=== PATIENT | male | born 1955 | race Caucasian/White ===

== ENCOUNTER 2020-07-15 17:18 | Emergency (ER) | payer OTHER, SELFPAY ==
--- NOTE | ~2020-07-15 | US_ITS ---
EXAMINATION: US VENOUS ULTRASOUND WITH DOPPLER LOWER EXTREMITY, LEFT CLINICAL INFORMATION: Left leg edema COMPARISON: None TECHNIQUE: Ultrasound of the deep veins is performed from the hip to the calf with compression sonography and color and pulse Doppler assessment. Spectral analysis with color-flow imaging is performed. FINDINGS: Acute DVT involving the left lower extremity is present with nonvisualized peroneal veins with thrombus present in the popliteal vein extending into the femoral vein up to near the GSV - femoral vein junction. US/US venous duplex LE LT IMPRESSION: Acute DVT left lower extremity involving the popliteal vein and the end prior course of the femoral vein to just below the inflow of the great saphenous vein.
[2020-07-15 17:30] VITALS: BP 146/84; PULSE 68; RESP 18; TEMP 36.6; O2SAT 100; BMI 29.9
--- NOTE | 2020-07-15 17:38 | ED_ITS ---
HPI - Recheck/Abnormal Lab/Rx General Chief Complaint: Recheck/Abnormal Lab/Rx Stated Complaint: dvt Time Seen by Provider: 07/15/20 17:26 Source: patient Mode of arrival: ambulatory Limitations: no limitations History of Present Illness HPI narrative: 64 y/o male with history of idopathic pulmonary fibrosis with ch ronic hypoxic respiratory failure on 2L NC, hx spontaneous PTX x2 (left in September 2019 and right in Apr 2020) s/p VATS who presents from US lab with positive DVT. He reports he has had LLE swelling for the last 4 weeks. He is used to walking 5 miles per day and after his VATS in April his mobility has been decreased. He denies SOB or chest pain. His breathing has been the same since his surgery. He is up to walking 10 blocks and has no SOB. He has been compliant with his oxygen. complaint: abnormal lab Initial visit (ago): hour(s) Initial visit for: other (LE edema) Description of abnormal result: LE DVT Symptoms since prior visit: worsening swelling Associated symptoms: none Related Data Home Medications Medication Instructions Recorded Confirmed oxygen-air delivery systems #1 05/17/20 07/15/20 Previous Rx's Medication Instructions Recorded albuterol sulfate 90 mcg/actuation 2 puff INHALATION Q6H PRN #8.5 g 01/29/20 aerosol inhaler zolpidem 10 mg tablet 10 mg PO BEDTIME PRN #14 tab 06/30/20 alprazolam 0.25 mg tablet 0.25 mg PO BID PRN 30 Days #60 tab 07/11/20 oxycodone 10 mg tablet 10 mg PO DAILY PRN #15 tab 07/15/20 rivaroxaban [Xarelto DVT-PE Treat See Rx Instructions .ROUTE 07/15/20 30d Start] .COMPLEX #51 ea Allergies Allergy/AdvReac Type Severity Reaction Status Date / Time Penicillins [PENICILLINS] Allergy Intermediate ITCHING Verified 01/29/20 16:39 oxycodone [From PERCOCET] Allergy Unknown JITTERY Verified 01/29/20 16:39 Review of Systems Review of Systems: Constitutional: No Fever, No Chills Cardiovascular: No Chest Pain, No SOB, No Orthopnea, + Edema Respiratory: No Cough, No Sputum, No Wheezing, No dyspnea Gastrointestinal: No Nausea, No Vomiting, No Diarrhea, No abdominal Pain Genitourinary: No Dysuria, No Urinary Frequency, No Hematuria Musculoskeletal: No joint pain, + Myalgias Skin: No Skin Lesions, No rash Neuro: No Weakness, No Numbness, No Dizziness, No Headache Psych: No Anxiety/Panic, No Depression Heme/Lymph: No Bruising, No Lymphadenopathy [facility] Past Medical History Medical History (Updated 07/15/20 @ 18:35 by TERRY Hanna) Anxiety and depression COPD (chronic obstructive pulmonary disease) Diverticular disease Hypercholesterolemia Obesity (BMI 30-39.9) Osteopenia Pneumothorax Pulmonary fibrosis Right leg DVT Surgical History (Updated 01/26/20 @ 13:49 by Sera Hirsch [place]) H/O rectal polypectomy History of arthroscopy of left knee History of arthroscopy of right knee History of surgery History of surgery History of tonsillectomy Family History Family History (Updated 01/26/20 @ 13:50 by Sera Hirsch [place]) Father Lung cancer Mother Breast cancer Paternal Grandmother Throat cancer Paternal Aunt Breast cancer Paternal Grandfather Myocardial infarction Social History Social History (Updated 05/17/20 @ 11:07 by Edwige Chowdhury [facility]) Alcohol intake: former Smoking Status: Former smoker Physical Exam Vital Signs: Vital Signs: Last Vital Signs Temp 97.8 F 07/15/20 17:30 Pulse 68 07/15/20 17:30 Resp 18 07/15/20 17:30 BP 146/84 H 07/15/20 17:30 Pulse Ox 100 07/15/20 17:30 Body Mass Index 29.9 Appearance: Alert. Oriented X3. No acute distress. HEENT: normal inspection CVS: Normal heart rate and rhythm. Pulses normal. Respiratory: No respiratory distress. Bibasilar rales and coarse throughout Skin: Skin warm and dry. Normal skin color. Normal skin turgor. No rashes. Extremities: LLE with moderate nonpitting edema, tender calf. NV intact distally. Neuro: Oriented X 3. No motor deficit. No sensory deficit. Steady gait Course Course Course Narrative: 64 y/o male presenting with post-op LLE DVT, popliteal and slightly more proximal. Will treat with Xarelto and have him f/u with Dr. Eldridge. Given this is 2nd +DVT, he will require lifelong a/c. Low suspicion for PE given no SOB or chest pain. He is aware or plan to treat and follow up, all questions answered. Stable for d/c. MDM - Recheck/Abnormal Lab/Rx Lab Data Result diagrams: 07/15/20 18:03 07/15/20 18:03 Labs: Lab Results 07/15/20 07/15/20 07/15/20 Range/Units 18:03 18:03 18:03 WBC 12.9 H (4.8-10.8) X10*3/uL RBC 4.64 (4.60-5.80) X10*6/uL Hgb 14.2 (14.0-18.0) g/dl Hct 43.4 (42-52) % MCV 93.5 (80-98) fL MCH 30.6 (27.0-33.0) pg MCHC 32.7 (31.0-36.0) g/dl RDW 14.3 (11.0-16.0) % Plt Count 208 (160-400) X10*3/uL MPV 9.0 L (9.4-12.4) fL Immature Gran % (Auto) 0.4 (0.0-0.4) % Neut % (Auto) 49.2 (45-73) % Lymph % (Auto) 40.2 H (20-40) % Gordon % (Auto) 8.0 (2-11) % Eos % (Auto) 1.6 (0-4) % Baso % (Auto) 0.6 (0-2) % Lymph # (Auto) 5.2 H (1.2-4.9) X10*3/uL Gordon # (Auto) 1.0 (0.1-1.2) X10*3/uL Eos # (Auto) 0.2 (0.0-0.4) X10*3/uL Baso # (Auto) 0.1 (0.0-0.2) X10*3/uL Abs Immat Gran (auto) 0.05 H (0.00-0.03) X10*3/uL Absolute Neuts (auto) 6.4 (2.0-8.3) X10*3/uL Absolute Nucleated RBC 0.000 (0.0-0.012) X10*3/uL Nucleated RBC % (auto) 0.0 (0.0-0.2) /100WBC Smear Tech's Comments VERIFIED PT 12.5 (10.8-13.0) SEC INR 1.1 (0.9-1.1) APTT 37.4 (24.1-38.0) SEC Sodium 142 (135-145) mmol/L Potassium 4.5 (3.3-5.1) mmol/L Chloride 104 (96-108) mmol/L Carbon Dioxide 30 H (22-29) mmol/L Anion Gap 13 (12-20) BUN 14 (9-16) mg/dL Creatinine 0.92 (0.5-1.4) mg/dL Estim Creat Clear Calc 99.1 Estimated GFR > 60 Random Glucose 90 (60-115) mg/dL Calcium 9.5 (8.4-10.2) mg/dL Discharge Plan Discharge Clinical Impression: DVT of leg (deep venous thrombosis) Qualifiers: Affected thrombotic vein of extremity: popliteal Chronicity: acute Laterality: left Qualified Code(s): I82.432 - Acute embolism and thrombosis of left popliteal vein Patient Disposition: Home, Self-Care Instructions: Rivaroxaban (By mouth), Deep Vein Thrombosis (ED) Additional Instructions: Your ultrasound today showed an acute blood clot in the popliteal vein (vein behind the knee) Take Xarleto as prescribed Follow up with your doctor for refills. You were given a prescription for 1 month Follow up with Dr. Eldridge for further workup If you have shortness of breath or chest pain come back to the ER for further evaluation. Prescriptions: New Xarelto DVT-PE Treat 30d Start 15 mg (42)- 20 mg (9) tablets,dose pack See Rx Instructions .ROUTE .COMPLEX Qty: 51 RF: 0 No Action zolpidem 10 mg tablet 10 mg PO BEDTIME PRN (Reason: insomnia) Qty: 14 RF: 3 alprazolam 0.25 mg tablet 0.25 mg PO BID PRN (Reason: anxiety) 30 Days Qty: 60 RF: 3 albuterol sulfate [ProAir HFA] 90 mcg/actuation HFA aerosol inhaler 2 puff inhalation Q6H PRN (Reason: bronchospasm) Qty: 8.5 RF: 0 oxycodone 10 mg tablet 10 mg PO DAILY PRN (Reason: pain) Qty: 15 RF: 0 (DME) oxygen-air delivery systems Device See Rx Instructions .ROUTE .MEDSUPPLY Qty: 1 RF: 0 Referrals: Anita Eldridge MD [Physician] - 2 days (LLE DVT post operatively, hx RLE DVT in the past) Interventions: ED Discharge Assessment Last Done: 07/15/20 18:45 Discharge Date/Time: 07/15/20 18:47
[2020-07-15 18:17] LABS: INTERNATIONAL NORM RATIO 1.1 (0.9-1.1); Prothrombin Time 12.5 SEC (10.8-13.0)
[2020-07-15 18:25] LABS: Basophils Absolute Auto 0.1 X10*3/uL (0.0-0.2); Basophils Percent Auto 0.6 % (0-2); Eosinophils Absolute Auto 0.2 X10*3/uL (0.0-0.4); Eosinophils Percent Auto 1.6 % (0-4); Hematocrit 43.4 % (42-52); Hemoglobin 14.2 g/dl (14.0-18.0); Imm Gran Abs Auto 0.05 X10*3/uL (0.00-0.03); Imm Gran Pct Auto 0.4 % (0.0-0.4); Lymphocytes Absolute Auto 5.2 X10*3/uL (1.2-4.9); Lymphocytes Percent Auto 40.2 % (20-40); MANUAL DIFF FLAG SCAN; Mean Corpuscular HGB Conc 32.7 g/dl (31.0-36.0); Mean Corpuscular Hemoglobin 30.6 pg (27.0-33.0); Mean Corpuscular Volume 93.5 fL (80-98); Neutrophils Absolute Auto 6.4 X10*3/uL (2.0-8.3); Neutrophils Percent Auto 49.2 % (45-73); Platelet Count 208 X10*3/uL (160-400); Red Blood Count 4.64 X10*6/uL (4.60-5.80); Red Cell Distribution Width 14.3 % (11.0-16.0); SCAN SMEAR FLAG 1; White Blood Count 12.9 X10*3/uL (4.8-10.8)
[2020-07-15 18:26] LABS: Partial Thromboplastin Time 37.4 SEC (24.1-38.0)
[2020-07-15 18:34] LABS: Anion Gap 13 (12-20); Blood Urea Nitrogen 14 mg/dL (9-16); Calcium 9.5 mg/dL (8.4-10.2); Carbon Dioxide 30 mmol/L (22-29); Chloride 104 mmol/L (96-108); Creatinine Clr Calc Pharmacy 99.1; Estimated Glomerular Filt Rate > 60; Glucose Random 90 mg/dL (60-115); Potassium 4.5 mmol/L (3.3-5.1); Sodium 142 mmol/L (135-145)
[2020-07-15] MEDS: Rivaroxaban 15 MG TABLET PO (18:42)
[2020-07-15 18:48] LABS: SLIDE REVIEW VERIFIED
== END 2020-07-15 18:47 | disposition home or self-care (01) ==
LOC: HO.ED 17:18
PROVIDERS: Physician Assistant; Emergency Provider Emergency Medicine; PCP Internal Medicine; Visit Provider Internal Medicine
DX: I82.432 Acute embolism and thrombosis of left popliteal vein (principal); R60.0 Localized edema; R79.89 Other specified abnormal findings of blood chemistry; Z87.891 Personal history of nicotine dependence; Z79.899 Other long term (current) drug therapy; Z99.81 Dependence on supplemental oxygen
CPT/HCPCS: 36415; 80048; 85025; 85610; 85730; 93971; 99283; 99284

== ENCOUNTER 2020-07-19 08:07 | Outpatient (REF) | payer OTHER, SELFPAY ==
[2020-07-19 09:19] LABS: Basophils Absolute Auto 0.1 X10*3/uL (0.0-0.2); Basophils Percent Auto 0.7 % (0-2); Eosinophils Absolute Auto 0.2 X10*3/uL (0.0-0.4); Eosinophils Percent Auto 1.6 % (0-4); Hematocrit 48.5 % (42-52); Hemoglobin 15.6 g/dl (14.0-18.0); Imm Gran Abs Auto 0.04 X10*3/uL (0.00-0.03); Imm Gran Pct Auto 0.3 % (0.0-0.4); MANUAL DIFF FLAG SCAN; Mean Corpuscular HGB Conc 32.2 g/dl (31.0-36.0); Mean Corpuscular Hemoglobin 30.1 pg (27.0-33.0); Mean Corpuscular Volume 93.6 fL (80-98); Mean Platelet Volume 9.2 fL (9.4-12.4); Neutrophils Absolute Auto 5.9 X10*3/uL (2.0-8.3); Neutrophils Percent Auto 48.4 % (45-73); Platelet Count 263 X10*3/uL (160-400); Red Blood Count 5.18 X10*6/uL (4.60-5.80); Red Cell Distribution Width 14.4 % (11.0-16.0); SCAN SMEAR FLAG 1; White Blood Count 12.2 X10*3/uL (4.8-10.8)
[2020-07-19 09:26] LABS: Estimated Average Glucose 117 mg/dL; Hemoglobin A1c % 5.7 %
[2020-07-19 09:55] LABS: Alanine Aminotransferase 14 U/L (0-40); Albumin Level 4.5 g/dL (3.5-5.0); Alkaline Phosphatase 106 U/L (39-117); Anion Gap 14 (12-20); Aspartate Amino Transferase 18 U/L (5-37); Bilirubin Total 0.8 mg/dL (0.0-1.0); Blood Urea Nitrogen 16 mg/dL (9-16); Calcium 9.6 mg/dL (8.4-10.2); Carbon Dioxide 28 mmol/L (22-29); Chloride 105 mmol/L (96-108); Cholesterol 188 mg/dL; Estimated Glomerular Filt Rate > 60; Free T4 (Free Thyroxine) 0.92 ng/dL (0.71-1.85); Glucose Random 100 mg/dL (60-115); HDL Cholesterol 38 mg/dL; LDL Cholesterol Calculated 117 mg/dl; Potassium 4.5 mmol/L (3.3-5.1); Sodium 142 mmol/L (135-145); Thyroid Stimulating Hormone 3.21 uIU/mL (0.32-4.0); Total Protein 7.7 g/dL (6.5-8.0); Triglycerides 168 mg/dL
[2020-07-19 10:05] LABS: SLIDE REVIEW VERIFIED
[2020-07-19 10:08] LABS: Folate 14.3 ng/mL (> or = 4.0); Vitamin B12 445 pg/mL (200-900)
== END 2020-07-19 08:08 | disposition home or self-care (01) ==
LOC: HO.LAB 08:07
PROVIDERS: PCP Internal Medicine; Visit Provider Internal Medicine
DX: R73.02 Impaired glucose tolerance (oral) (principal); E78.00 Pure hypercholesterolemia, unspecified; Z12.5 Encounter for screening for malignant neoplasm of prostate
CPT/HCPCS: 36415; 80053; 80061; 82607; 82746; 83036; 84153; 84439; 84443; 85025

== ENCOUNTER → 2020-07-19 08:28 | Outpatient (BNV) | payer MEDICARE, OTHER, MEDICAID, SELFPAY | PROVIDERS: PCP Internal Medicine; Visit Provider Internal Medicine | DX: I82.402 Acute embolism and thrombosis of unspecified deep veins of left lower extremity (principal); Z79.01 Long term (current) use of anticoagulants | CPT/HCPCS: 99213; 99214; G2211 ==

== ENCOUNTER → 2020-10-20 13:48 | Outpatient (BNVA) | payer OTHER, SELFPAY | PROVIDERS: PCP Internal Medicine; Visit Provider Urology | DX: R97.20 Elevated prostate specific antigen [PSA] (principal) | CPT/HCPCS: 99202 ==

== ENCOUNTER 2021-02-03 06:54 | Outpatient (REF) | payer OTHER, SELFPAY ==
[2021-02-03 08:48] LABS: PSA,Total (Free>4and<10) 2.09 ng/mL (0.00-4.00)
== END 2021-02-03 06:55 | disposition home or self-care (01) ==
LOC: HO.LAB 06:54
PROVIDERS: PCP Internal Medicine; Visit Provider Urology
DX: Z12.5 Encounter for screening for malignant neoplasm of prostate (principal); R97.20 Elevated prostate specific antigen [PSA]
CPT/HCPCS: 36415; 84153

== ENCOUNTER → 2021-02-21 08:26 | Outpatient (BNVA) | payer OTHER, SELFPAY | PROVIDERS: PCP Internal Medicine; Visit Provider Urology ==

== ENCOUNTER 2021-07-07 07:58 | Outpatient (REF) | payer OTHER, SELFPAY ==
[2021-07-07 08:36] LABS: MANUAL DIFF FLAG NO
[2021-07-07 09:16] LABS: Basophils Absolute Auto 0.1 X10*3/uL (0.0-0.2); Basophils Percent Auto 0.4 % (0-2); Eosinophils Absolute Auto 0.2 X10*3/uL (0.0-0.4); Eosinophils Percent Auto 1.3 % (0-4); Hematocrit 48.5 % (42.0-52.0); Hemoglobin 15.7 g/dl (14.0-18.0); Imm Gran Abs Auto 0.05 X10*3/uL (0.00-0.03); Imm Gran Pct Auto 0.4 % (0.0-0.4); Lymphocytes Absolute Auto 4.4 X10*3/uL (1.2-4.9); Lymphocytes Percent Auto 35.1 % (20-40); Mean Corpuscular HGB Conc 32.4 g/dl (31.0-36.0); Mean Corpuscular Hemoglobin 31.4 pg (27.0-33.0); Mean Platelet Volume 9.6 fL (9.4-12.4); Monocytes Absolute Auto 1.1 X10*3/uL (0.1-1.2); Monocytes Percent Auto 8.8 % (2-11); Neutrophils Absolute Auto 6.8 x10*3/uL (2.0-8.3); Platelet Count 189 X10*3/uL (160-400); Red Cell Distribution Width 14.2 % (11.0-16.0); White Blood Count 12.6 X10*3/uL (4.8-10.8)
[2021-07-07 09:45] LABS: Alanine Aminotransferase 14 U/L (0-40); Albumin Level 4.2 g/dL (3.5-5.0); Alkaline Phosphatase 84 U/L (39-117); Anion Gap 10 (12-20); Aspartate Amino Transferase 16 U/L (5-37); Bilirubin Total 0.7 mg/dL (0.0-1.0); Blood Urea Nitrogen 12 mg/dL (9-16); Calcium 9.1 mg/dL (8.4-10.2); Carbon Dioxide 31 mmol/L (22-29); Chloride 105 mmol/L (96-108); Cholesterol 164 mg/dL; Estimated Glomerular Filt Rate > 60; Glucose Random 95 mg/dL (60-115); HDL Cholesterol 40 mg/dL; LDL Cholesterol Calculated 87 mg/dl; Potassium 4.5 mmol/L (3.3-5.1); Sodium 141 mmol/L (135-145); Total Protein 7.1 g/dL (6.5-8.0); Triglycerides 187 mg/dL; Uric Acid 6.4 mg/dL (3.4-7.0)
[2021-07-07 10:09] LABS: Free T4 (Free Thyroxine) 1.06 ng/dL (0.71-1.85); PSA,Total (Free>4and<10) 2.51 ng/mL (0.00-4.00); Thyroid Stimulating Hormone 3.57 uIU/mL (0.32-4.0)
[2021-07-07 10:21] LABS: Folate 12.9 ng/mL (> or = 4.0); Vitamin B12 340 pg/mL (200-900)
== END 2021-07-07 07:59 | disposition home or self-care (01) ==
LOC: HO.LAB 07:58
PROVIDERS: PCP Internal Medicine; Visit Provider Internal Medicine
DX: E78.00 Pure hypercholesterolemia, unspecified (principal); Z12.5 Encounter for screening for malignant neoplasm of prostate
CPT/HCPCS: 36415; 80053; 80061; 82607; 82746; 84153; 84439; 84443; 84550; 85025

== ENCOUNTER 2022-01-31 10:32 | Outpatient (REF) | payer MEDICARE, MEDICAID, SELFPAY ==
[2022-01-31 13:07] LABS: PSA,Total (Free>4and<10) 1.57 ng/mL (0.00-4.00)
== END 2022-01-31 10:33 | disposition home or self-care (01) ==
LOC: HO.10HDL 10:32
PROVIDERS: Visit Provider Urology
DX: Z12.5 Encounter for screening for malignant neoplasm of prostate (principal); N13.8 Other obstructive and reflux uropathy; N40.1 Benign prostatic hyperplasia with lower urinary tract symptoms; R97.20 Elevated prostate specific antigen [PSA]
CPT/HCPCS: 36415; 84153

== ENCOUNTER → 2022-02-22 10:10 | Outpatient (BNVA) | payer MEDICARE, MEDICAID, SELFPAY | PROVIDERS: PCP Internal Medicine; Visit Provider Urology | DX: R97.20 Elevated prostate specific antigen [PSA] (principal) | CPT/HCPCS: Q3014 ==

== ENCOUNTER 2022-05-25 10:13 | Outpatient (REF) | payer MEDICARE, MEDICAID, SELFPAY ==
--- NOTE | ~2022-05-25 | US_ITS ---
EXAMINATION: US VENOUS ULTRASOUND WITH DOPPLER LOWER EXTREMITY, LEFT CLINICAL INFORMATION: Swelling left leg COMPARISON: Ultrasound left leg 07/15/2020. Had acute DVT on previous ultrasound exam. TECHNIQUE: Ultrasound of the deep veins is performed from the hip to the calf with compression sonography and color and pulse Doppler assessment. Spectral analysis with color-flow imaging is performed. FINDINGS: There is normal venous compression and respiratory variation and augmented flow. The visualized common femoral vein, superficial femoral vein, profunda femoral vein, popliteal vein, and the trifurcation region shows no evidence of deep venous thrombosis. There is slow flow visualized throughout the lower leg veins. There is no significant popliteal fossa cyst. If the patient's symptoms persist, followup ultrasound in 5 days 7 days might be of value to exclude proximal propagation from a non-visualized calf vein. US/US venous duplex LE IMPRESSION: No DVT demonstrated in the left lower extremity.
== END 2022-05-25 10:14 | disposition home or self-care (01) ==
LOC: HO.US 10:13
PROVIDERS: Visit Provider Internal Medicine
DX: I82.402 Acute embolism and thrombosis of unspecified deep veins of left lower extremity (principal)
CPT/HCPCS: 93971

== ENCOUNTER 2022-08-08 08:12 | Outpatient (REF) | payer MEDICARE, MEDICAID, SELFPAY ==
[2022-08-08 09:37] LABS: Prostate Specific Antigen 3.69 ng/mL (<0.05-4.0)
== END 2022-08-08 08:13 | disposition home or self-care (01) ==
LOC: HO.LAB 08:12
PROVIDERS: PCP Internal Medicine; Visit Provider Urology
DX: R73.02 Impaired glucose tolerance (oral) (principal); E78.00 Pure hypercholesterolemia, unspecified; Z12.5 Encounter for screening for malignant neoplasm of prostate
CPT/HCPCS: 36415; 84153

== ENCOUNTER → 2022-08-21 10:10 | Outpatient (BNVA) | payer MEDICARE, MEDICAID, SELFPAY | PROVIDERS: PCP Internal Medicine; Visit Provider Urology | DX: R97.20 Elevated prostate specific antigen [PSA] (principal) | CPT/HCPCS: Q3014 ==

== ENCOUNTER → 2022-08-29 09:44 | Outpatient (BNVA) | payer MEDICARE, MEDICAID, SELFPAY | PROVIDERS: PCP Internal Medicine; Referring Provider Internal Medicine; Visit Provider Surgery | DX: Z12.11 Encounter for screening for malignant neoplasm of colon (principal); I82.432 Acute embolism and thrombosis of left popliteal vein; J93.11 Primary spontaneous pneumothorax; J43.9 Emphysema, unspecified | CPT/HCPCS: 99202 ==

== ENCOUNTER 2022-10-22 09:34 | Outpatient (AMB) | payer MEDICARE, MEDICAID, SELFPAY ==
[2022-10-22 09:37] VITALS: BP 118/76; BMI 31.5
--- NOTE | 2022-10-22 09:37 | A.OFFVIS_ITS ---
Intake Vital Signs 10/22/22 09:37 Height 5 ft 11 in Weight 226 lb BMI 31.5 BP 118/76 Blood Pressure Location Rt brachial Intake Visit Reasons: re-discuss colonoscopy, +cologuard Intake Note: This patient presents for an assessment to re-discuss colonoscopy, +cologuard. Patient c/o; reports no complaints at this time. Registered Nurse Nursery Required: No Accompanied by: Self / Same As Patient Allergies Penicillins [PENICILLINS] Allergy (Intermediate, Verified 10/22/22 09:38) ITCHING HPI re-discuss colonoscopy, +cologuard HPI Details ?66-year-old male here to discuss his Cologuard results. I had sent him for Cologuard as he did not want to proceed with colonoscopy this year. Unfortunately, this was positive so I asked him to see me in the office. I had done his colonoscopy in the 2019.? However, he had significant tortuosity in his sigmoid at that time and I could not go past 30 cm level.? I recommended for him to undergo a CT colonography after that.? However, he had been chronically ill in 2020 because of pulmonary fibrosis, repeated episodes of pneumothoraces requiring partial resection of the right and the right lungs that year.? He has been on oxygen supplementation since that time.? He gets short of breath easily with ambulation. He has a history of a DVT after undergoing lung resection and is currently on Xarelto for this. He denies GI complaints. [facility] Medical History (Updated 10/22/22 @ 10:02 by Piotr Jiménez MD) Anticoagulant long-term use Anxiety and depression COPD (chronic obstructive pulmonary disease) Diverticular disease Hypercholesterolemia Obesity (BMI 30-39.9) Osteopenia Pneumothorax Positive colorectal cancer screening using Cologuard test Pulmonary fibrosis Right leg DVT Surgical History H/O rectal polypectomy History of arthroscopy of left knee History of arthroscopy of right knee History of surgery History of surgery History of tonsillectomy Family History Father Lung cancer Mother Breast cancer Paternal Grandmother Throat cancer Paternal Aunt Breast cancer Paternal Grandfather Myocardial infarction Social History Household Members: Spouse Housing: House Are you a primary youth care professional to a significant other at home: No Do you presently have visiting nurse or other home services: No Alcohol intake: former Patient Tobacco Use Status: Former Tobacco user Tobacco use type: Cigarette Years Smoked: 1989 e-Cigarette/Vaping Use: Never Used Second Hand Smoke Exposure: No service: No Current occupational status: disabled Current occupational exposures/hazards: No Cognitive needs: No Hearing needs: No Vision needs: No Review of Systems Const Denies chills and Denies fever(s) Card Denies chest pain, Denies dyspnea and Reports dyspnea on exertion Resp Denies cough, Denies dyspnea and Reports dyspnea on exertion GI Denies hematochezia and Denies change in bowel habits Denies hematuria and Denies difficulty urinating Musc Denies back pain and Denies limited range of motion Neuro Denies focal weakness and Denies convulsions Psych Denies depression and Denies mood swings Physical Exam Vital Signs: Last Vital Signs BP 118/76 10/22/22 09:37 BMI result Body Mass Index 31.5 Const Other: Obese General: comfortable and no acute distress Orientation/consciousness: patient oriented x3 Neck Neck: Yes no lymphadenopathy Resp Auscultation: clear to auscultation bilaterally Cardio Rhythm: regular rhythm GI Other: Abdomen protuberant Palpation (GI): Soft to palpation, nontender and no guarding Neuro General: patient oriented x3 Assessment & Plan Assessment & Plan (1) Colon cancer screening: Code(s): Z12.11 - Encounter for screening for malignant neoplasm of colon Plan: I reviewed with him the technique of colonoscopy. I recommended this because of his positive Cologuard. Explained the risks including but not limited to bleeding, infections, bowel injury including perforation, as well as the benefits and alternatives. He understands and wants to proceed. He understands that during his last colonoscopy, we were any able to go past level 30 because of severe angulation and tortuosity. (2) Positive colorectal cancer screening using Cologuard test: Code(s): R19.5 - Other fecal abnormalities Plan: I have recommended for him to undergo colonoscopy because of this positive Colog uard test as above. (3) Anticoagulant long-term use: Code(s): Z79.01 - FDC (current) use of anticoagulants Plan: He has a history of DVT, provoked with his previous lung surgery. I will hold his Xarelto for 2 days prior to his colonoscopy. Coding Level of Care Code Est Pt Level 4 (74462) Diagnoses Colon cancer screening Z12.11 Positive colorectal cancer screening using Cologuard test R19.5 Anticoagulant long-term use Z79.01
== END 2022-10-22 09:57 | disposition home or self-care (01) ==
PROVIDERS: PCP Internal Medicine; Visit Provider Surgery
DX: Z12.11 Encounter for screening for malignant neoplasm of colon (principal); R19.5 Other fecal abnormalities; Z79.01 Long term (current) use of anticoagulants
CPT/HCPCS: 99214

== ENCOUNTER → 2022-10-22 09:34 | Outpatient (BNVA) | payer MEDICARE, MEDICAID, SELFPAY | PROVIDERS: PCP Internal Medicine; Visit Provider Surgery | DX: Z12.11 Encounter for screening for malignant neoplasm of colon (principal); R19.5 Other fecal abnormalities; Z79.01 Long term (current) use of anticoagulants | CPT/HCPCS: 99212 ==

== ENCOUNTER 2022-11-16 06:22 | Day surgery (SDC) | payer MEDICARE, MEDICAID, SELFPAY ==
[2022-11-14 07:15] VITALS: BMI 32.5
--- NOTE | 2022-11-15 10:38 | HO.ANESPROP2 ---
Documented by User: Sarita Paredes NP 11/15/22 10:40 HPI - Anesthesia Eval Consult details Narrative: 67yo M for Colonoscopy, possible polypectomy Pulmonary fibrosis s/p wedge resection, blebectomy. Not interested in lung transplant. Now supplemental O2 with exertion. DNR Xarelto for DVTs Chronic opioids PMFSH Active Problems Active Problems: All Active Problems (Updated 10/22/22 @ 10:02 by Piotr Jiménez MD) Anticoagulant long-term use (Acute) Positive colorectal cancer screening using Cologuard test (Acute) Colon cancer screening (Acute) Shingles (Acute) Eczema (Acute) Generalized anxiety disorder (Acute) Annual physical exam (Acute) PSA elevation (Acute) DVT of leg (deep venous thrombosis) (Chronic) Pneumothorax (Acute) Insomnia (Acute) Impaired glucose tolerance (Acute) Obesity (BMI 30-39.9) (Acute) COPD (chronic obstructive pulmonary disease) (Acute) Pulmonary fibrosis (Acute) Hypercholesterolemia (Acute) Past Medical History Medical History Anticoagulant long-term use Positive colorectal cancer screening using Cologuard test Pneumothorax Osteopenia Right leg DVT Diverticular disease Obesity (BMI 30-39.9) COPD (chronic obstructive pulmonary disease) Anxiety and depression Pulmonary fibrosis Hypercholesterolemia Family History Family History Father Lung cancer Mother Breast cancer Paternal Grandmother Throat cancer Paternal Aunt Breast cancer Paternal Grandfather Myocardial infarction Surgical History Surgical History History of surgery History of surgery History of arthroscopy of right knee History of arthroscopy of left knee H/O rectal polypectomy History of tonsillectomy Social History Social History Household Members: Spouse Housing: House Are you a primary adult live in caregiver to a significant other at home: No Do you presently have visiting nurse or other home services: No Alcohol intake: former Patient Tobacco Use Status: Former Tobacco user Tobacco use type: Cigarette Years Smoked: quit 1989 e-Cigarette/Vaping Use: Never Used Second Hand Smoke Exposure: No Are you DNR?: Yes Advance Directives: No Advance Directives Information Provided: Yes Nutrition Risks: No Nutritional Risk service: No Current occupational status: disabled Current occupational exposures/hazards: No Cognitive needs: No Hearing needs: No Vision needs: No Meds Allergies Allergy/AdvReac Type Severity Reaction Status Date / Time Penicillins [PENICILLINS] Allergy Intermediate ITCHING Verified 11/16/22 06:48 Home Medications Medication Instructions Recorded Confirmed Last Taken Type oxygen-air delivery systems ##1 05/17/20 08/29/22 Unknown History oxycodone 10 mg tablet 10 mg PO Q8H PRN Pain 08/29/22 11/16/22 Unknown History Exam Exam Date and Time: November 15, 2022 1038 Height,Weight and Vital Signs: Height 5 ft 11 in Weight 105.687 kg Pertinent Lab Results Pertinent Lab Results: Laboratory Tests 05/25/22 09:30 WBC 9.8 Hgb 15.9 Hct 48.0 Plt Count 187 Assessment and Plan Assessment Anesthesia Assessment: Chart Reviewed Documented by User: Zenaida Zamora MD 11/16/22 07:32 PMFSH Active Problems Active Problems: pAll Active Problems (Updated 10/22/22 @ 10:02 by Piotr Jiménez MD) Anticoagulant long-term use (Acute) Positive colorectal cancer screening using Cologuard test (Acute) Colon cancer screening (Acute) Shingles (Acute) Eczema (Acute) Generalized anxiety disorder (Acute) Annual physical exam (Acute) PSA elevation (Acute) DVT of leg (deep venous thrombosis) (Chronic) Pneumothorax (Acute) Insomnia (Acute) Impaired glucose tolerance (Acute) Obesity (BMI 30-39.9) (Acute) COPD (chronic obstructive pulmonary disease) (Acute) Pulmonary fibrosis (Acute) Hypercholesterolemia (Acute) Past Medical History Medical History Anticoagulant long-term use Positive colorectal cancer screening using Cologuard test Pneumothorax Osteopenia Right leg DVT Diverticular disease Obesity (BMI 30-39.9) COPD (chronic obstructive pulmonary disease) Anxiety and depression Pulmonary fibrosis Hypercholesterolemia Functional capacity: wheelchair bound Family History Family History Father Lung cancer Mother Breast cancer Paternal Grandmother Throat cancer Paternal Aunt Breast cancer Paternal Grandfather Myocardial infarction Surgical History Surgical History History of surgery History of surgery History of arthroscopy of right knee History of arthroscopy of left knee H/O rectal polypectomy History of tonsillectomy History of Problems with Anesthesia: No Social History Social History Household Members: Spouse Housing: House Are you a primary adult live in caregiver to a significant other at home: No Do you presently have visiting nurse or other home services: No Alcohol intake: former Patient Tobacco Use Status: Former Tobacco user Tobacco use type: Cigarette Years Smoked: 1989 e-Cigarette/Vaping Use: Never Used Second Hand Smoke Exposure: No Are you DNR?: Yes Advance Directives: No Advance Directives Information Provided: Yes Nutrition Risks: No Nutritional Risk service: No Current occupational status: disabled Current occupational exposures/hazards: No Cognitive needs: No Hearing needs: No Vision needs: No Meds Allergies Allergy/AdvReac Type Severity Reaction Status Date / Time Penicillins [PENICILLINS] Allergy Intermediate ITCHING Verified 11/16/22 06:48 Home Medications Medication Instructions Recorded Confirmed Last Taken Type oxygen-air delivery systems ##1 05/17/20 08/29/22 Unknown History oxycodone 10 mg tablet 10 mg PO Q8H PRN Pain 08/29/22 11/16/22 Unknown History Exam Airway Mallampati Class: II TM Dist: >3cm Neck ROM: Full Loose/Missing/Broken Teeth: No Heart: RRR Lungs: CTA Assessment and Plan Assessment Anesthesia Assessment: Anesthesia Plan Discussed Final Anesthetic Review History of Problems with Anesthesia: No NPO: Yes ASA Class: III Final Preanesthetic Review: Meds/Allgs Chart Reviewed, Consent Obtained/Reviewed and Anes Risks/Benef Reviewed Patient Risk: Intermediate Procedure Risk: Low Anesthetic Plan Anesthetic Plan: MAC: Disposition: Standard PACU
[2022-11-16] MEDS: Lactated Ringers 1,000 ML 100 ML IVCONT (06:38)
[2022-11-16 06:40] VITALS: BP 131/88; PULSE 96; RESP 18; TEMP 36.6; O2SAT 95
--- NOTE | 2022-11-16 06:44 | PC.NURSE ---
patient has diminished lung sounds throughtout, slight crackles in right base. wet occ. cough noted. updraft given as ordered. 95%RA. uses o2 prn
[2022-11-16 06:45] VITALS: PULSE 72; RESP 16; O2SAT 94
[2022-11-16] MEDS: Albuterol Sulfate (0.083%) 2.5 MG/3 ML VIAL.NEB INHALE (06:45)
--- NOTE | 2022-11-16 07:26 | MHC.SHP ---
Pre-Procedural Eval Section A Date of Service: 11/16/22 Section B Chief Complaint: Screening, Other fecal abnormalities Details of Present Illness: had positive cologuard; no GI complaints; previous unsuccesful colonoscopy Relevant Family History (Specify if Yes): No Relevant Social History: None Present Medications: see Short Stay Collaborative assessment Medical History: Significant History (hx of DVT, pulmonary fibrosis, anxiety, hx of pneumothorax, hyperlipidemia, obesity) Allergies: Allergies Allergy/AdvReac Type Severity Reaction Status Date / Time Penicillins [PENICILLINS] Allergy Intermediate ITCHING Verified 11/16/22 06:48 Review of Systems Sugical H&P ROS: Negative: Constitution, Cardiovascular, Neurological, Psychiatric, Hem-Onc, Allergic/Immunologic, Gastrointestinal, Genitourinary, Musculoskeletal, Integumentary, Endocrine and Eyes/Ears/Nose/Throat and Yes, Specify: Respiratory (SOB) Exam Surgical H&P Exam: Normal: HEENT, Normal: Heart, Normal: Lungs, Normal: Extremities, Normal: Abdomen, Normal: Skin and Normal: Neurological Plan Diagnosis/Plan: Unchanged I have reviewed the history and physical and performed a pertinent physical examination on my patient. No changes have occurred unless specified. Time Spent With Patient Time: Total time managing care of this patient today ____ minutes.
--- NOTE | 2022-11-16 08:21 | P.OP_ITS ---
Operative Note Operative Note Date of Service: 11/16/22 Narrative: Prep diagnosis: Positive Cologuard test Postop diagnosis: 1. Diffuse diverticulosis, scattered 2. small polyp about 5 mm at level 65 cm, removed with multiple bites of a cold forceps 3. internal and external hemorrhoids Procedure: Colonoscopy with polypectomy using cold forceps Surgeon: Piotr Jiménez MD The patient is a 67-year-old male who previously had an incomplete colonoscopy in 2019 because of a severe angulation at level 30 in the sigmoid colon. He had the CT colonography which was unremarkable. He had a Cologuard test this year which was positive so I had scheduled him for another attempt at colonoscopy. He understood the technique of this procedure. His where the risks, benefits, and alternatives. The patient was brought to the operating room and placed in left lateral decubitus position under monitored anesthesia care. A surgical time-out was done. A full digital rectal exam was done and this did not reveal any significa nt anal lesions. The tip of the Olympus colonoscope was gently introduced through the anal orifice advanced with insufflation. Again, at level 30 cm in the of the sigmoid was noted was severe angulation. We had difficulty navigating this but it ventrally with gentle insufflation and advancement were able to get past this severe angulation. We were able to advance all the way to cecum. The cecum was intubated. The cecum was identified by visualization of the ileocecal valve as well as the appendiceal orifice. The cecal mucosa was unremarkable. The scope was gradually withdrawn with careful examination of the entire colonic mucosa being done with scope withdrawal. The patient had some residual patches of stool throughout the entire colon so we had to carefully irrigate this to achieve good visualization of the mucosa. Was however unlikely that any lesion may have been missed. We had to withdraw slowly and examined the mucosa carefully in view of the positive Cologuard test. He had diffuse scattered diverticuli throughout the entire colon. However, I could did not identify any other lesion. There was note of a small polyp about 5 mm at level 65 cm which was removed using multiple bites of a cold forceps. This polyp did not appear suspicious. The rectum was reached and there were no lesions seen. The anal canal was unremarkable except for non bulky internal and external hemorrhoids. The scope was then withdrawn completely with desufflation The patient tolerated the procedure well. There were no immediate complications. Depending on his path report, will recommend another colonoscopy within the next 5 years especially in view of his sub optimal bowel prep.
[2022-11-16 08:25] VITALS: BP 137/89; PULSE 86; RESP 20; TEMP 36.4; O2SAT 98
[2022-11-16 08:40] VITALS: BP 125/90; PULSE 76; RESP 18; TEMP 36.1; O2SAT 97
== END 2022-11-16 09:20 | disposition home or self-care (01) ==
PROVIDERS: PCP Internal Medicine; Visit Provider Surgery
PROC: 0DJD8ZZ Inspection of Lower Intestinal Tract, Via Natural or Artificial Opening Endoscopic (ICD-10-PCS; CPT 45378; principal; 2022-11-16 07:30)
DX: R19.5 Other fecal abnormalities (principal); K63.5 Polyp of colon; K57.30 Diverticulosis of large intestine without perforation or abscess without bleeding; K64.8 Other hemorrhoids; K64.4 Residual hemorrhoidal skin tags; J44.9 Chronic obstructive pulmonary disease, unspecified; J84.10 Pulmonary fibrosis, unspecified; Z99.81 Dependence on supplemental oxygen; Z87.891 Personal history of nicotine dependence; Z88.0 Allergy status to penicillin; Z86.718 Personal history of other venous thrombosis and embolism; Z79.01 Long term (current) use of anticoagulants; M85.80 Other specified disorders of bone density and structure, unspecified site; Z98.890 Other specified postprocedural states
CPT/HCPCS: 45380; 88305; 94640; J2250

== ENCOUNTER → 2022-11-16 06:22 | Outpatient (BNV) | payer MEDICARE, MEDICAID, SELFPAY | PROVIDERS: PCP Internal Medicine; Visit Provider Surgery | DX: Z12.11 Encounter for screening for malignant neoplasm of colon (principal); R19.5 Other fecal abnormalities; K63.5 Polyp of colon; K64.8 Other hemorrhoids; K57.90 Diverticulosis of intestine, part unspecified, without perforation or abscess without bleeding | CPT/HCPCS: 45380 ==

== ENCOUNTER 2022-11-29 10:13 | Outpatient (AMB) | payer MEDICARE, MEDICAID, SELFPAY ==
--- NOTE | 2022-11-29 10:20 | MHC.OFFVIS ---
Intake Vital Signs 11/29/22 10:24 Height 5 ft 11 in Weight 221 lb BMI 30.8 BP 130/67 Blood Pressure Location Rt brachial Position Sitting Pulse 66 Intake Visit Reasons: S/P colonoscopy Intake Note: This patient presents for a post-op assessment status post colonoscopy. Patient c/o; reports no issues or concerns at this time pertaining to colonoscopy. Writing Manager Required: No Accompanied by: Self / Same As Patient Allergies Penicillins [PENICILLINS] Allergy (Intermediate, Verified 11/29/22 10:24) ITCHING Medication List - Last Reconciled 11/29/22 by Piotr Jiménez MD alprazolam 0.25 mg PO BID PRN 30 days dutasteride 0.5 mg orally 2x per week; oxycodone 10 mg PO DAILY PRN oxycodone 10 mg PO Q8H PRN oxygen-air delivery systems As directed rivaroxaban (Xarelto) 10 mg PO DAILY zolpidem ER (Ambien CR) 12.5 mg PO BEDTIME PRN 30 days HPI S/P colonoscopy HPI Details He underwent colonoscopy last 11/16/2022 because of a positive Cologuard test. He tolerated procedure well and currently denies significant complaints. He has a history of incomplete colonoscopy in the past but I was able to get through the sigmoid colon all the way to the cecum. He however had a suboptimal bowel prep. I removed 1 small polyp which was hyperplastic. [facility] Medical History Anticoagulant long-term use Positive colorectal cancer screening using Cologuard test Pneumothorax Osteopenia Right leg DVT Diverticular disease Obesity (BMI 30-39.9) COPD (chronic obstructive pulmonary disease) Anxiety and depression Pulmonary fibrosis Hypercholesterolemia Surgical History History of colonoscopy History of surgery History of surgery History of arthroscopy of right knee History of arthroscopy of left knee H/O rectal polypectomy History of tonsillectomy Family History Father Lung cancer Mother Breast cancer Paternal Grandmother Throat cancer Paternal Aunt Breast cancer Paternal Grandfather Myocardial infarction Social History Household Members: Spouse Housing: House Are you a primary long term acute care registered nurse to a significant other at home: No Do you presently have visiting nurse or other home services: No Alcohol intake: former Patient Tobacco Use Status: Former Tobacco user Tobacco use type: Cigarette Years Smoked: quit 1989 e-Cigarette/Vaping Use: Never Used Second Hand Smoke Exposure: No service: No Current occupational status: disabled Current occupational exposures/hazards: No Cognitive needs: No Hearing needs: No Vision needs: No Review of Systems Const Denies chills and Denies fever(s) Card Denies chest pain, Denies dyspnea and Denies dyspnea on exertion Resp Denies cough, Denies dyspnea and Denies dyspnea on exertion GI Denies hematochezia and Denies change in bowel habits Denies hematuria and Denies difficulty urinating Musc Denies back pain and Denies limited range of motion Neuro Denies focal weakness and Denies convulsions Psych Denies depression and Denies mood swings Physical Exam Vital Signs: Last Vital Signs Pulse 66 11/29/22 10:24 BP 130/67 11/29/22 10:24 BMI result Body Mass Index 30.8 Const General: comfortable and no acute distress Resp Other: Using oxygen Effort & Inspection: normal respiratory effort GI Palpation (GI): Soft to palpation, not firm and nontender Assessment & Plan Assessment & Plan (1) Positive colorectal cancer screening using Cologuard test: Code(s): R19.5 - Other fecal abnormalities Plan: Status post colonoscopy. I was able to visualize the entire colon all the way to cecum. There was 1 small polyp that I removed which was hyperplastic. I explained to him that this is not pre cancerous He did have a suboptimal bowel prep so I recommended repeating the anoscopy in 5 years. He is comfortable with the plan. Coding Level of Care Code Est Pt Level 2 (17143) Diagnoses Positive colorectal cancer screening using Cologuard test R19.5
[2022-11-29 10:24] VITALS: BP 130/67; PULSE 66; BMI 30.8
== END 2022-11-29 10:41 | disposition home or self-care (01) ==
PROVIDERS: PCP Internal Medicine; Visit Provider Surgery
DX: R19.5 Other fecal abnormalities (principal)
CPT/HCPCS: 99212

== ENCOUNTER → 2022-11-29 10:13 | Outpatient (BNVA) | payer MEDICARE, MEDICAID, SELFPAY | PROVIDERS: PCP Internal Medicine; Visit Provider Surgery | DX: R19.5 Other fecal abnormalities (principal); Z98.890 Other specified postprocedural states | CPT/HCPCS: 99212 ==

== ENCOUNTER 2023-02-08 08:31 | Outpatient (AMB) | payer MEDICARE, MEDICAID, SELFPAY ==
[2023-02-08 08:41] VITALS: BP 128/80; PULSE 62; O2SAT 87; BMI 29.7
--- NOTE | 2023-02-08 08:41 | A.OFFPC_ITS ---
Vital Signs 02/08/23 08:41 Height 5 ft 11 in Weight 213 lb BMI 29.7 BP 128/80 Blood Pressure Location Lt brachial Position Sitting Pulse 62 Pulse Source Pulse Oximeter Temp Source Skin Pulse Oximetry (%) 87 L Oxygen Delivery Method Nasal Cannula Intake Visit Reasons: pulmonary fibrosis Protector Plate Attacher Required: No Allergies Penicillins [PENICILLINS] Allergy (Intermediate, Verified 11/29/22 10:24) ITCHING Medication List - Last Reconciled 02/08/23 by Corky Dawn MD alprazolam 0.25 mg PO BID PRN 30 days azithromycin (Zithromax) For 250 mg dose pack: take 500 mg today (day 1), then 250 mg for 4 days (days 2-5) PO dutasteride 0.5 mg orally 2x per week; oxycodone 10 mg PO DAILY PRN oxycodone 10 mg PO Q8H PRN oxygen-air delivery systems As directed prednisone take 5 tabs a day and taper as sob gets resolved rivaroxaban (Xarelto) 10 mg PO DAILY zolpidem ER (Ambien CR) 12.5 mg PO BEDTIME PRN 30 days Tobacco use date assessed: 02/08/23 HPI pulmonary fibrosis HPI Details 67-year-old obese male with a history of pulmonary fibrosis supportive treatment hypercholesterolemia COPD impaired glucose tolerance with a history of DVT of the leg coming in for follow-up. Last seen in July 2022. Patient's colonoscopy done November 2022.. Did receive the note from pulmonary January 2023 had a cough at that time wheezing and fever up-to-date with flu COVID and shingles vaccine COVID swab negative placed on prednisone and doxycycline Dr. Welch. Chest x-ray done July 2021 stable interstitial fibrotic changes left perihilar infiltrate likely represents edema although viral or atypical pneumonia could be present. Patient had an elevated PSA did have a telehealth meeting with the urology was placed on finasteride but had side effects and started now on dutasteride 2 times per week and continue to monitor [facility] Medical History (Updated 02/08/23 @ 09:23 by Corky Dawn MD) Positive colorectal cancer screening using Cologuard test Colon cancer screening Anticoagulant long-term use Pneumothorax Osteopenia Right leg DVT Diverticular disease Obesity (BMI 30-39.9) COPD (chronic obstructive pulmonary disease) Anxiety and depression Pulmonary fibrosis Hypercholesterolemia Surgical History History of colonoscopy History of surgery History of surgery History of arthroscopy of right knee History of arthroscopy of left knee H/O rectal polypectomy History of tonsillectomy Family History Father Lung cancer Mother Breast cancer Paternal Grandmother Throat cancer Paternal Aunt Breast cancer Paternal Grandfather Myocardial infarction Social History Household Members: Spouse Housing: House Are you a primary cardiac care nurse to a significant other at home: No Do you presently have visiting nurse or other home services: No Alcohol intake: former Patient Tobacco Use Status: Former Tobacco user Tobacco use type: Cigarette Years Smoked: 1989 e-Cigarette/Vaping Use: Never Used Second Hand Smoke Exposure: No service: No Current occupational status: disabled Current occupational exposures/hazards: No Cognitive needs: No Hearing needs: No Vision needs: No Questionnaire Thrive Questionnaire Date Thrive assessed: 07/30/22 WAQAR-7 AMB Questionnaire WAQAR-7 Date WAQAR - 7 assessed: 07/30/22 Source: Developed by Drs. Brent Catherine, Kate Scott, Get Salguero and colleagues, with an educational lalito from [employer]. Physical exam (Primary Care) Vital Signs: Last Vital Signs Pulse 62 02/08/23 08:41 BP 128/80 02/08/23 08:41 Pulse Ox 87 L 02/08/23 08:41 Oxygen Delivery Method Nasal Cannula 02/08/23 08:41 BMI result Body Mass Index 29.7 Tobacco/Smoking Status: Tobacco use Status Tobacco use date assessed 02/08/23 02/08/23 08:45 Patient Tobacco Use Status Former Tobacco user 02/08/23 08:45 Tobacco use type Cigarette 02/08/23 08:45 e-Cigarette/Vaping Use Never Used 02/08/23 08:45 Thrive Assessment: Date of Thrive Assessment Date Thrive assessed 07/30/22 02/08/23 08:45 Const General: alert; No acute distress Eyes Conjunctivae: conjunctivae normal Resp Auscultation: clear to auscultation bilaterally Cardio Rate: regular rate Rhythm: regular rhythm GI Inspection: Yes normal to inspection Extrem General: Yes normal to inspection and No edema Assessment and Plan Assessment & Plan (1) COPD (chronic obstructive pulmonary disease): Code(s): J44.9 - Chronic obstructive pulmonary disease, unspecified Qualifiers: COPD type: emphysema Emphysema type: unspecified Qualified Code(s): J43.9 - Emphysema, unspecified Plan: Continue the oxygen, patient follows up with Pulmonary (2) Pulmonary fibrosis: Code(s): J84.10 - Pulmonary fibrosis, unspecified Plan: Continue to follow-up with Pulmonary (3) Hypercholesterolemia: Code(s): E78.00 - Pure hypercholesterolemia, unspecified Plan: Avoid fried foods, chicken skin, eggs, butter margarine, pastries and meat. Be it pork or beef they have a lot of cholesterol LDL goal of less than 130 and triglyceride of less than 150 July 2022 last blood work (4) Impaired glucose tolerance: Code(s): R73.02 - Impaired glucose tolerance (oral) Plan: Decrease the amount of carbohydrate intake, pasta, bread, rice and potatoes are all sugar and that is aside from all the sweet stuff, remember that fruits are good but they are Sweet also. (5) DVT of leg (deep venous thrombosis): Comment: history of DVT in the right lower extremity in 2018 and then had a left lower extremity DVT July 2020 Code(s): I82.409 - Acute embolism and thrombosis of unspecified deep veins of unspecified lower extremity Qualifiers: Affected thrombotic vein of extremity: popliteal Chronicity: acute Laterality: left Qualified Code(s): I82.432 - Acute embolism and thrombosis of left popliteal vein Plan: Continue with anticoagulation will continue to monitor for renal function (6) PSA elevation: Code(s): R97.20 - Elevated prostate specific antigen [PSA] Plan: Patient follows up with urology placed on dutasteride (7) Generalized anxiety disorder: Code(s): F41.1 - Generalized anxiety disorder Plan: Continuing with medication as needed (8) COPD exacerbation: Code(s): J44.1 - Chronic obstructive pulmonary disease with (acute) exacerbation Orders: Orders Complete Blood Count Auto Diff Today I82.432 - Acute embolism and thrombosis of left popliteal vein Comprehensive Met. Panel Today I82.432 - Acute embolism and thrombosis of left popliteal vein Medications: New azithromycin (Zithromax) For 250 mg dose pack: take 500 mg today (day 1), then 250 mg for 4 days (days 2-5) PO 6 tabs 0RF J44.1 - Chronic obstructive pulmonary disease with (acute) exacerbation prednisone take 5 tabs a day and taper as sob gets resolved 100 tabs 0RF J44.1 - Chronic obstructive pulmonary disease with (acute) exacerbation, J45.909 - Unspecified asthma, uncomplicated Coding Level of Care Code Est Pt Level 4 (10084) Diagnoses Pulmonary emphysema, unspecified emphysema type J43.9 COPD type: emphysema Emphysema type: unspecified Pulmonary fibrosis J84.10 Hypercholesterolemia E78.00 Impaired glucose tolerance R73.02 DVT of leg (deep venous thrombosis) I82.432 Affected thrombotic vein of extremity: popliteal Chronicity: acute Laterality: left PSA elevation R97.20 Generalized anxiety disorder F41.1 COPD exacerbation J44.1
== END 2023-02-08 09:32 | disposition home or self-care (01) ==
PROVIDERS: Visit Provider Internal Medicine
DX: J84.10 Pulmonary fibrosis, unspecified (principal); I82.432 Acute embolism and thrombosis of left popliteal vein; J44.1 Chronic obstructive pulmonary disease with (acute) exacerbation; E78.00 Pure hypercholesterolemia, unspecified; R73.02 Impaired glucose tolerance (oral); R97.20 Elevated prostate specific antigen [PSA]; F41.1 Generalized anxiety disorder
CPT/HCPCS: 99214

== ENCOUNTER 2023-04-19 07:36 | Outpatient (REF) | payer MEDICARE, MEDICAID, SELFPAY ==
[2023-04-19 08:07] LABS: Basophils Absolute Auto 0.1 X10*3/uL (0.0-0.2); Basophils Percent Auto 0.6 % (0-2); Eosinophils Absolute Auto 0.2 X10*3/uL (0.0-0.4); Eosinophils Percent Auto 1.6 % (0-4); Hematocrit 49.6 % (42.0-52.0); Hemoglobin 16.2 g/dl (14.0-18.0); Imm Gran Abs Auto 0.05 X10*3/uL (0.00-0.03); Imm Gran Pct Auto 0.4 % (0.0-0.4); Lymphocytes Absolute Auto 5.8 X10*3/uL (1.2-4.9); Lymphocytes Percent Auto 46.3 % (20-40); MANUAL DIFF FLAG SCAN; Mean Corpuscular HGB Conc 32.7 g/dl (31.0-36.0); Mean Corpuscular Hemoglobin 30.9 pg (27.0-33.0); Mean Corpuscular Volume 94.7 fL (80.0-98.0); Mean Platelet Volume 9.3 fL (9.4-12.4); Monocytes Percent Auto 8.3 % (2-11); Neutrophils Absolute Auto 5.4 x10*3/uL (2.0-8.3); Neutrophils Percent Auto 42.8 % (45-73); Platelet Count 223 X10*3/uL (160-400); Red Blood Count 5.24 X10*6/uL (4.60-5.80); Red Cell Distribution Width 14.8 % (11.0-16.0); SCAN SMEAR FLAG 1; White Blood Count 12.5 X10*3/uL (4.8-10.8)
[2023-04-19 08:18] LABS: Estimated Average Glucose 114 mg/dL; Hemoglobin A1c % 5.6 % (<6.0)
[2023-04-19 08:31] LABS: SLIDE REVIEW VERIFIED
[2023-04-19 08:53] LABS: Alanine Aminotransferase 15 U/L (0-40); Albumin Level 4.3 g/dL (3.5-5.0); Alkaline Phosphatase 89 U/L (39-117); Anion Gap 13 (12-20); Aspartate Amino Transferase 21 U/L (5-37); Bilirubin Total 0.8 mg/dL (0.0-1.0); Blood Urea Nitrogen 15 mg/dL (9-16); Calcium 9.6 mg/dL (8.4-10.2); Carbon Dioxide 28 mmol/L (22-29); Chloride 106 mmol/L (96-108); Cholesterol 192 mg/dL (<200); Estimated Glomerular Filt Rate > 60; Glucose Random 102 mg/dL (60-115); HDL Cholesterol 44 mg/dL (>40); LDL Cholesterol Calculated 118 mg/dL (<100); Potassium 4.2 mmol/L (3.3-5.1); Sodium 143 mmol/L (135-145); Total Protein 7.5 g/dL (6.5-8.0); Triglycerides 154 mg/dL (<150)
[2023-04-19 08:56] LABS: Thyroid Stimulating Hormone 3.89 uIU/mL (0.32-4.0)
[2023-04-19 09:08] LABS: Folate 8.6 ng/mL (> or = 4.0); Vitamin B12 417 pg/mL (200-900)
== END 2023-04-19 07:37 | disposition home or self-care (01) ==
LOC: HO.LAB 07:36
PROVIDERS: PCP Internal Medicine; Visit Provider Internal Medicine
DX: E78.00 Pure hypercholesterolemia, unspecified (principal); R73.02 Impaired glucose tolerance (oral)
CPT/HCPCS: 36415; 80053; 80061; 82607; 82746; 83036; 84439; 84443; 85025

== ENCOUNTER 2023-05-10 10:40 | Outpatient (AMB) | payer MEDICARE, MEDICAID, SELFPAY ==
[2023-05-10 10:41] VITALS: BP 122/90; PULSE 66; O2SAT 87; BMI 31.1
--- NOTE | 2023-05-10 10:41 | MHC.PC.OV ---
Vital Signs 05/10/23 10:41 Height 5 ft 11 in Weight 223 lb 0.8 oz BMI 31.1 BP 122/90 H Blood Pressure Location Lt brachial Position Sitting Pulse 66 Pulse Source Pulse Oximeter Pulse Oximetry (%) 87 L Oxygen Delivery Method Nasal Cannula Oxygen Flow Rate 2 Intake Visit Reasons: COPD, ILD Intake Note: Patient is here to follow up on COPD, ILD School Childcare Attendant Required: No Allergies Penicillins [PENICILLINS] Allergy (Intermediate, Verified 05/10/23 10:41) ITCHING Medication List - Last Reconciled 05/10/23 by Corky Dawn MD alprazolam 0.25 mg PO BID PRN 30 days oxycodone 10 mg PO DAILY PRN oxycodone 10 mg PO Q8H PRN oxygen-air delivery systems As directed rivaroxaban (Xarelto) 10 mg PO DAILY zolpidem ER (Ambien CR) 12.5 mg PO BEDTIME PRN 30 days Tobacco use date assessed: 05/10/23 Fall risk assessment: No Falls in past year Last assessed Fall Risk: 05/10/23 Dental Screening Dental Screen Date: 05/10/23 Did you have a dental visit in the last 12 months?: Yes Did you have a dental problem in the last 6 months where you did not have access to dental care?: No Was dental information given to patient?: Patient has dentist HPI COPD, ILD HPI Details 67-year-old obese male with COPD with pulmonary fibrosis hypercholesterolemia impaired glucose tolerance history of DVT generalized anxiety disorder last seen in February 2023. [facility] Medical History (Updated 05/10/23 @ 11:25 by Corky Dawn MD) Positive colorectal cancer screening using Cologuard test Colon cancer screening Anticoagulant long-term use Pneumothorax Osteopenia Right leg DVT Diverticular disease Obesity (BMI 30-39.9) COPD (chronic obstructive pulmonary disease) Anxiety and depression Pulmonary fibrosis Hypercholesterolemia Surgical History History of colonoscopy History of surgery History of surgery History of arthroscopy of right knee History of arthroscopy of left knee H/O rectal polypectomy History of tonsillectomy Family History Father Lung cancer Mother Breast cancer Paternal Grandmother Throat cancer Paternal Aunt Breast cancer Paternal Grandfather Myocardial infarction Social History Household Members: Spouse Housing: House Are you a primary floor care technician to a significant other at home: No Do you presently have visiting nurse or other home services: No Alcohol intake: former Patient Tobacco Use Status: Former Tobacco user Tobacco use type: Cigarette Years Smoked: 1989 e-Cigarette/Vaping Use: Never Used Second Hand Smoke Exposure: No service: No Current occupational status: disabled Current occupational exposures/hazards: No Cognitive needs: No Hearing needs: No Vision needs: No Questionnaire Thrive Questionnaire Date Thrive assessed: 05/10/23 AUDIT C Alcohol Use Questionnaire (AUDIT-C) 1. How often do you have a drink containing alcohol?: Never 2. How many drinks containing alcohol do you have on a typical day when you are drinking?: 1 or 2 (0) 3. How often do you have six or more drinks on one occasion?: Never Total Score: 0 WAQAR-7 AMB Questionnaire WAQAR-7 Date WAQAR - 7 assessed: 05/10/23 Source: Developed by Drs. Brent Catherine, Kate Scott, Get Salguero and colleagues, with an educational lalito from [employer]. Physical exam (Primary Care) Vital Signs: Last Vital Signs Pulse 66 05/10/23 10:41 BP 122/90 H 05/10/23 10:41 Pulse Ox 87 L 05/10/23 10:41 Oxygen Delivery Method Nasal Cannula 05/10/23 10:41 Oxygen Flow Rate 2 05/10/23 10:41 BMI result Body Mass Index 31.1 Tobacco/Smoking Status: Tobacco use Status Tobacco use date assessed 05/10/23 05/10/23 10:42 Patient Tobacco Use Status Former Tobacco user 05/10/23 10:42 Tobacco use type Cigarette 05/10/23 10:42 e-Cigarette/Vaping Use Never Used 05/10/23 10:42 Thrive Assessment: Date of Thrive Assessment Date Thrive assessed 05/10/23 05/10/23 10:42 Const General: alert; No acute distress Eyes Conjunctivae: conjunctivae normal Resp Auscultation: clear to auscultation bilaterally Cardio Rate: regular rate Rhythm: regular rhythm GI Inspection: Yes normal to inspection Extrem General: Yes normal to inspection and No edema Assessment and Plan Assessment & Plan (1) Generalized anxiety disorder: Code(s): F41.1 - Generalized anxiety disorder Plan: Continue with present medication (2) DVT of leg (deep venous thrombosis): Comment: history of DVT in the right lower extremity in 2019 and then had a left lower extremity DVT July 2020 Code(s): I82.409 - Acute embolism and thrombosis of unspecified deep veins of unspecified lower extremity Qualifiers: Affected thrombotic vein of extremity: popliteal Chronicity: acute Laterality: left Qualified Code(s): I82.432 - Acute embolism and thrombosis of left popliteal vein Plan: Continue with anticoagulation (3) Impaired glucose tolerance: Code(s): R73.02 - Impaired glucose tolerance (oral) Plan: Decrease the amount of carbohydrate intake, pasta, bread, rice and potatoes are all sugar and that is aside from all the sweet stuff, remember that fruits are good but they are Sweet also. (4) Obesity (BMI 30-39.9): Code(s): E66.9 - Obesity, unspecified Plan: Diet and exercise (5) COPD (chronic obstructive pulmonary disease): Code(s): J44.9 - Chronic obstructive pulmonary disease, unspecified Qualifiers: COPD type: emphysema Emphysema type: unspecified Qualified Code(s): J43.9 - Emphysema, unspecified Plan: Stable and does not require any inhaler on oxygen (6) Pulmonary fibrosis: Code(s): J84.10 - Pulmonary fibrosis, unspecified Plan: Continues to be on oxygen as well as prednisone (7) Hypercholesterolemia: Code(s): E78.00 - Pure hypercholesterolemia, unspecified Plan: Avoid fried foods, chicken skin, eggs, butter margarine, pastries and meat. Be it pork or beef they have a lot of cholesterol (8) Peripheral neuropathy: Code(s): G62.9 - Polyneuropathy, unspecified Plan: not ready for testing (9) Eczema: Comment: R upper back Code(s): L30.9 - Dermatitis, unspecified Plan: try steroid cream for 1-2 weeks - if not better to call Orders: Orders US venous duplex LE LT 6 Months I82.432 - Acute embolism and thrombosis of left popliteal vein Complete Blood Count Auto Diff 6 Months I82.432 - Acute embolism and thrombosis of left popliteal vein Comprehensive Met. Panel 6 Months I82.432 - Acute embolism and thrombosis of left popliteal vein Lipid Panel 6 Months E78.00 - Pure hypercholesterolemia, unspecified, I82.432 - Acute embolism and thrombosis of left popliteal vein Free T4 (Free Thyroxine) 6 Months I82.432 - Acute embolism and thrombosis of left popliteal vein Thyroid Stimulating Hormone 6 Months I82.432 - Acute embolism and thrombosis of left popliteal vein Vitamin B12 and Folate 6 Months I82.432 - Acute embolism and thrombosis of left popliteal vein Prostate Specific Antigen Scr 6 Months I82.432 - Acute embolism and thrombosis of left popliteal vein D Dimer High Sensitivity 6 Months I82.432 - Acute embolism and thrombosis of left popliteal vein Coding Level of Care Code Est Pt Level 4 (19190) Diagnoses Generalized anxiety disorder F41.1 DVT of leg (deep venous thrombosis) I82.432 Affected thrombotic vein of extremity: popliteal Chronicity: acute Laterality: left Impaired glucose tolerance R73.02 Obesity (BMI 30-39.9) E66.9 Pulmonary emphysema, unspecified emphysema type J43.9 COPD type: emphysema Emphysema type: unspecified Pulmonary fibrosis J84.10 Hypercholesterolemia E78.00 Peripheral neuropathy G62.9 Eczema L30.9
== END 2023-05-10 11:38 | disposition home or self-care (01) ==
PROVIDERS: PCP Internal Medicine; Visit Provider Internal Medicine
DX: J43.9 Emphysema, unspecified (principal); J84.10 Pulmonary fibrosis, unspecified; F41.1 Generalized anxiety disorder; I82.432 Acute embolism and thrombosis of left popliteal vein; R73.02 Impaired glucose tolerance (oral); E78.00 Pure hypercholesterolemia, unspecified; G62.9 Polyneuropathy, unspecified; L30.9 Dermatitis, unspecified
CPT/HCPCS: 99214

== ENCOUNTER 2023-08-14 08:49 | Outpatient (AMB) | payer MEDICARE, SELFPAY ==
--- NOTE | 2023-08-14 08:51 | A.OFFPC_ITS ---
Vital Signs 08/14/23 08:52 Height 5 ft 11 in Weight 223 lb BMI 31.1 BP 128/72 Blood Pressure Location Lt brachial Position Sitting Pulse 65 Pulse Source Pulse Oximeter Pulse Oximetry (%) 98 Oxygen Delivery Method Nasal Cannula Intake Visit Reasons: COPD Allergies Penicillins [PENICILLINS] Allergy (Intermediate, Verified 08/14/23 08:52) ITCHING Medication List - Last Reconciled 08/14/23 by Corky Dawn MD alprazolam 0.25 mg PO BID PRN 30 days oxycodone 10 mg PO DAILY PRN oxygen-air delivery systems As directed rivaroxaban (Xarelto) 10 mg PO DAILY zolpidem ER (Ambien CR) 12.5 mg PO BEDTIME PRN 30 days Tobacco use date assessed: 08/14/23 Fall risk assessment: No Falls in past year Last assessed Fall Risk: 08/14/23 Dental Screening Dental Screen Date: 05/10/23 HPI COPD HPI Details 67-year-old obese male with a history of COPD pulmonary fibrosis hypercholesterolemia impaired glucose tolerance history of DVT and neuropathy coming in for follow-up. Last seen in 05/29/2023. Review of the notes has been follow-up with Pulmonary 05/29/2023 on 2 L nasal cannula and may require uptitration to 4 L with exertion. Question of having infection at that time was given an antibiotic and prednisone. CT scan requested with results showing worsening interstitial fibrosis change subcentimeter right lower lobe nodule. Patient also has followed up with Hematology-Oncology for bilateral DVT right November 2018, left 07/28/2020 Xarelto prophylaxis 10 mg once a day- going on a road trip- [place] then to [facility] then to [facility] Medical History Positive colorectal cancer screening using Cologuard test Colon cancer screening Anticoagulant long-term use Pneumothorax Osteopenia Right leg DVT Diverticular disease Obesity (BMI 30-39.9) COPD (chronic obstructive pulmonary disease) Anxiety and depression Pulmonary fibrosis Hypercholesterolemia Surgical History History of colonoscopy History of surgery History of surgery History of arthroscopy of right knee History of arthroscopy of left knee H/O rectal polypectomy History of tonsillectomy Family History Father Lung cancer Mother Breast cancer Paternal Grandmother Throat cancer Paternal Aunt Breast cancer Paternal Grandfather Myocardial infarction Social History Household Members: Spouse Housing: House Are you a primary tire care manager to a significant other at home: No Do you presently have visiting nurse or other home services: No Alcohol intake: former Patient Tobacco Use Status: Former Tobacco user Tobacco use type: Cigarette Years Smoked: 1989 e-Cigarette/Vaping Use: Never Used Second Hand Smoke Exposure: No service: No Current occupational status: disabled Current occupational exposures/hazards: No Cognitive needs: No Hearing needs: No Vision needs: No Questionnaire PHQ-9 Over the last 2 weeks, how often have you been bothered by any of the following problems? 1. Little interest or pleasure in doing things: not at all 2. Feeling down, depressed, or hopeless: not at all 3. Trouble falling or staying asleep, or sleeping too much: not at all 4. Feeling tired or having little energy: not at all 5. Poor appetite or overeating: not at all 6. Feeling bad about yourself - or that you are a failure or have let yourself or your family down: not at all 7. Trouble concentrating on things, such as reading the newspaper or watching television: not at all 8. Moving or speaking so slowly that other people could have noticed. Or the opposite - being so fidgety or restless that you have been moving around a lot more than usual: not at all 9. Thoughts that you would be better off or of hurting yourself in some way: not at all Total score: 0 Depression Screening Interpretation: Negative Depression Screening Done: Yes Source: Developed by Drs. Brent Catherine, Kate Scott, Get Salguero and colleagues, with an educational lalito from [employer]. Thrive Questionnaire Date Thrive assessed: 05/10/23 AUDIT C Alcohol Use Questionnaire (AUDIT-C) 1. How often do you have a drink containing alcohol?: Never 2. How many drinks containing alcohol do you have on a typical day when you are drinking?: 1 or 2 (0) 3. How often do you have six or more drinks on one occasion?: Never Total Score: 0 WAQAR-7 AMB Questionnaire WAQAR-7 Date WAQAR - 7 assessed: 08/14/23 Feeling nervous, anxious, or on edge: 1 = Several days Not being able to stop or control worryin = Several days Worrying too much about different things: 1 = Several days Trouble relaxin = Several days Being so restless that it is hard to sit still: 0 = Not at all Becoming easily annoyed or irritable: 0 = Not at all Feeling afraid as if something awful might happen: 1 = Several days Total WAQAR-7 score (0-4 normal; 5-9 mild; 10-14 moderate; 15-21 severe): 5 Source: Developed by Drs. Brent Catherine, Kate Scott, Get Salguero and colleagues, with an educational lalito from [employer]. Physical exam (Primary Care) Vital Signs: Last Vital Signs Pulse 65 08/14/23 08:52 BP 128/72 08/14/23 08:52 Pulse Ox 98 08/14/23 08:52 Oxygen Delivery Method Nasal Cannula 08/14/23 08:52 BMI result Body Mass Index 31.1 Tobacco/Smoking Status: Tobacco use Status Tobacco use date assessed 08/14/23 08/14/23 08:57 Patient Tobacco Use Status Former Tobacco user 08/14/23 08:57 Tobacco use type Cigarette 08/14/23 08:57 e-Cigarette/Vaping Use Never Used 08/14/23 08:57 PHQ-9: PHQ-9 Score PHQ-9: Total score 0 08/14/23 09:37 Depression Screening Interpretation: Negative Thrive Assessment: Date of Thrive Assessment Date Thrive assessed 05/10/23 08/14/23 08:57 Const General: alert; No acute distress Eyes Conjunctivae: conjunctivae normal Resp Auscultation: clear to auscultation bilaterally Cardio Rate: regular rate Rhythm: regular rhythm GI Inspection: Yes normal to inspection Extrem General: Yes normal to inspection and No edema Immunizations pneumoc 20-antoine conj-dip cr(PF) 0.5 mL IM syringe Performing Provider: Corky Dawn MD Performing Location: [facility] Administered by: Edwige Chowdhury CMA on 08/14/23 09:37 Dose Route Admin Location Dispensed Lot Number Expiration Date [employer] Hand[employer] Supervisor 0.5 mL IM Left Deltoid 0.5 mL [id number] 07/09/24 5492-9460-40 [employer] VIS Given Date VIS Provided VIS Publication Date 08/14/23 Single Vaccine 21 Eligibility Eligibility Date Funding Source Not [facility] Eligible 08/14/23 Private Assessment and Plan Assessment & Plan (1) Pulmonary fibrosis: Code(s): J84.10 - Pulmonary fibrosis, unspecified Plan: Patient continues to follow-up with Pulmonary seen in May had CT scan showing worsening of the interstitial fibrosis. ff up with Dr. Welch (2) Obesity (BMI 30-39.9): Code(s): E66.9 - Obesity, unspecified Plan: Continue with diet and exercise (3) DVT of leg (deep venous thrombosis): Comment: history of DVT in the right lower extremity in 2018 and then had a left lower extremity DVT July 2020 Code(s): I82.409 - Acute embolism and thrombosis of unspecified deep veins of unspecified lower extremity Qualifiers: Affected thrombotic vein of extremity: popliteal Chronicity: acute Laterality: left Qualified Code(s): I82.432 - Acute embolism and thrombosis of left popliteal vein Plan: Patient follows up with Hematology-Oncology continuing with prophylactic dose of Xarelto 10 mg once a day (4) Generalized anxiety disorder: Code(s): F41.1 - Generalized anxiety disorder Plan: Continue with present medication (5) Insomnia: Code(s): G47.00 - Insomnia, unspecified Plan: Continue with present medication Orders: Orders Pneumococcal 20 Immunization Today Z23 - Encounter for immunization Medications: Refilled oxycodone 10 mg PO DAILY PRN 15 tabs 0RF pain J43.9 - Emphysema, unspecified, J93.9 - Pneumothorax, unspecified Coding Level of Care Code Est Pt Level 4 (25469) Diagnoses Pulmonary fibrosis J84.10 Obesity (BMI 30-39.9) E66.9 DVT of leg (deep venous thrombosis) I82.432 Affected thrombotic vein of extremity: popliteal Chronicity: acute Laterality: left Generalized anxiety disorder F41.1 Insomnia G47.00
[2023-08-14 08:52] VITALS: BP 128/72; PULSE 65; O2SAT 98; BMI 31.1
== END 2023-08-14 09:45 | disposition home or self-care (01) ==
PROVIDERS: PCP Internal Medicine; Visit Provider Internal Medicine
DX: Z23 Encounter for immunization (principal)
CPT/HCPCS: 90471; 90677; 99214

== ENCOUNTER 2023-11-12 16:26 | Outpatient (AMB) | payer MEDICARE, SELFPAY ==
[2023-11-12 16:55] VITALS: BP 108/64; PULSE 46; O2SAT 87; BMI 30.7
--- NOTE | 2023-11-12 16:55 | A.OFFPC_ITS ---
Vital Signs 11/12/23 16:55 Height 5 ft 11 in Weight 220 lb BMI 30.7 BP 108/64 Blood Pressure Location Lt brachial Position Sitting Pulse 46 L Pulse Source Pulse Oximeter Pulse Oximetry (%) 87 L Oxygen Delivery Method Nasal Cannula Oxygen Flow Rate 3 Intake Visit Reasons: Cold Symptoms Sports Centre Manager Required: No Accompanied by: Self / Same As Patient Allergies Penicillins [PENICILLINS] Allergy (Intermediate, Verified 11/12/23 16:57) ITCHING Tobacco use date assessed: 08/14/23 Fall risk assessment: No Falls in past year Last assessed Fall Risk: 11/12/23 Dental Screening Dental Screen Date: 05/10/23 HPI Cold Symptoms HPI Details 68-year-old obese male with a history of DVT pulmonary fibrosis generalized anxiety disorder coming in for an acute problem. Last seen in 08/29/2023. last february had this before also, 4 days ago tired , sob, coughing , no chills, patient has been having productive cough and this has been getting worse. Patient comes in with oxygen having history of pulmonary fibrosis. [facility] Medical History Positive colorectal cancer screening using Cologuard test Colon cancer screening Anticoagulant long-term use Pneumothorax Osteopenia Right leg DVT Diverticular disease Obesity (BMI 30-39.9) COPD (chronic obstructive pulmonary disease) Anxiety and depression Pulmonary fibrosis Hypercholesterolemia Surgical History History of colonoscopy History of surgery History of surgery History of arthroscopy of right knee History of arthroscopy of left knee H/O rectal polypectomy History of tonsillectomy Family History Father Lung cancer Mother Breast cancer Paternal Grandmother Throat cancer Paternal Aunt Breast cancer Paternal Grandfather Myocardial infarction Social History Household Members: Spouse Housing: House Are you a primary personal care assistant to a significant other at home: No Do you presently have visiting nurse or other home services: No Alcohol intake: former Patient Tobacco Use Status: Former Tobacco user Tobacco use type: Cigarette Years Smoked: quit 1989 e-Cigarette/Vaping Use: Never Used Second Hand Smoke Exposure: No service: No Current occupational status: disabled Current occupational exposures/hazards: No Cognitive needs: No Hearing needs: No Vision needs: No Questionnaire PHQ-9 Over the last 2 weeks, how often have you been bothered by any of the following problems? 1. Little interest or pleasure in doing things: not at all 2. Feeling down, depressed, or hopeless: not at all 3. Trouble falling or staying asleep, or sleeping too much: not at all 4. Feeling tired or having little energy: not at all 5. Poor appetite or overeating: not at all 6. Feeling bad about yourself - or that you are a failure or have let yourself or your family down: not at all 7. Trouble concentrating on things, such as reading the newspaper or watching television: not at all 8. Moving or speaking so slowly that other people could have noticed. Or the opposite - being so fidgety or restless that you have been moving around a lot more than usual: not at all 9. Thoughts that you would be better off or of hurting yourself in some way: not at all Total score: 0 Depression Screening Interpretation: Negative Depression Screening Done: Yes Source: Developed by Drs. Brent Catherine, Kate Scott, Get Salguero and colleagues, with an educational lalito from [employer]. Thrive Questionnaire Date Thrive assessed: 05/10/23 AUDIT C Alcohol Use Questionnaire (AUDIT-C) 1. How often do you have a drink containing alcohol?: Never 2. How many drinks containing alcohol do you have on a typical day when you are drinking?: 1 or 2 (0) 3. How often do you have six or more drinks on one occasion?: Never Total Score: 0 WAQAR-7 AMB Questionnaire WAQAR-7 Date WAQAR - 7 assessed: 08/14/23 Source: Developed by Drs. Brent Catherine, Kate Scott, Get Salguero and colleagues, with an educational lalito from [employer]. Physical exam (Primary Care) Vital Signs: Last Vital Signs Pulse 46 L 11/12/23 16:55 BP 108/64 11/12/23 16:55 Pulse Ox 87 L 11/12/23 16:55 Oxygen Delivery Method Nasal Cannula 11/12/23 16:55 Oxygen Flow Rate 3 11/12/23 16:55 BMI result Body Mass Index 30.7 Tobacco/Smoking Status: Tobacco use Status Tobacco use date assessed 08/14/23 11/12/23 17:00 Patient Tobacco Use Status Former Tobacco user 11/12/23 17:00 Tobacco use type Cigarette 11/12/23 17:00 e-Cigarette/Vaping Use Never Used 11/12/23 17:00 PHQ-9: PHQ-9 Score PHQ-9: Total score 0 11/12/23 17:00 Depression Screening Interpretation: Negative Thrive Assessment: Date of Thrive Assessment Date Thrive assessed 05/10/23 11/12/23 17:00 Const General: alert; No acute distress Eyes Conjunctivae: conjunctivae normal Chest Other: Crackles noted care home down on the lung crenshaw bilateral Resp Auscultation: clear to auscultation bilaterally Cardio Rate: regular rate Rhythm: regular rhythm GI Inspection: Yes normal to inspection Extrem General: Yes normal to inspection and No edema Assessment and Plan Assessment & Plan (1) COPD exacerbation: Code(s): J44.1 - Chronic obstructive pulmonary disease with (acute) exacerbation Plan: will send in z aramis and steroids (2) Pulmonary fibrosis: Code(s): J84.10 - Pulmonary fibrosis, unspecified Plan: Prescribed antibiotic and steroids. Medications: New azithromycin (Zithromax) For 250 mg dose pack: take 500 mg today (day 1), then 250 mg for 4 days (days 2-5) PO 6 tabs 0RF J44.1 - Chronic obstructive pulmonary disease with (acute) exacerbation prednisone 30 mg (3 x 10 mg) PO .QD 30 days 90 tabs 0RF J44.1 - Chronic obstructive pulmonary disease with (acute) exacerbation Coding Level of Care Code Est Pt Level 3 (73282) Diagnoses COPD exacerbation J44.1 Pulmonary fibrosis J84.10
== END 2023-11-12 17:53 | disposition home or self-care (01) ==
PROVIDERS: PCP Internal Medicine; Visit Provider Internal Medicine
DX: J44.1 Chronic obstructive pulmonary disease with (acute) exacerbation (principal); J84.10 Pulmonary fibrosis, unspecified
CPT/HCPCS: 99213

== ENCOUNTER 2023-11-14 10:14 | Outpatient (REF) | payer MEDICARE, SELFPAY ==
--- NOTE | ~2023-11-14 | US_ITS ---
EXAMINATION: US TRIPLEX LOWER EXTREMITY, LEFT CLINICAL INFORMATION: History of DVT on Xarelto. COMPARISON: Left lower extremity ultrasound 05/25/2022. TECHNIQUE: Color-flow triplex imaging with spectral analysis and compression Doppler were performed on the left lower extremity. FINDINGS: Nonocclusive thrombosis of the left popliteal vein. The visualized common femoral vein, superficial femoral vein, profunda femoral vein and midcalf peroneal and posterior tibial venous segments show no evidence of deep venous thrombosis. There is no Graham's cyst. US/US venous duplex LE LT IMPRESSION: Nonocclusive deep venous thrombosis of the left popliteal vein. The vocational training instructor confirmed receipt of this finding with Corky Dawn MD, at 10:46 AM on 11/14/2023. Electronically signed by: Naa Alexandra MD 11/14/2023 11:34 AM EDT
== END 2023-11-14 10:15 | disposition home or self-care (01) ==
LOC: HO.US 10:14
PROVIDERS: PCP Internal Medicine; Visit Provider Internal Medicine
DX: I82.432 Acute embolism and thrombosis of left popliteal vein (principal)
CPT/HCPCS: 93971

== ENCOUNTER 2023-12-09 06:30 | Outpatient (REF) | payer MEDICARE, SELFPAY ==
[2023-12-09 06:42] LABS: MANUAL DIFF FLAG NO
[2023-12-09 07:21] LABS: Basophils Absolute Auto 0.1 X10*3/uL (0.0-0.2); Basophils Percent Auto 0.7 % (0-2); Eosinophils Absolute Auto 0.3 X10*3/uL (0.0-0.4); Eosinophils Percent Auto 3.3 % (0-4); Hematocrit 50.3 % (42.0-52.0); Hemoglobin 16.4 g/dl (14.0-18.0); Imm Gran Abs Auto 0.05 X10*3/uL (0.00-0.03); Imm Gran Pct Auto 0.5 % (0.0-0.4); Lymphocytes Absolute Auto 4.5 X10*3/uL (1.2-4.9); Lymphocytes Percent Auto 48.3 % (20-40); Mean Corpuscular HGB Conc 32.6 g/dl (31.0-36.0); Mean Corpuscular Hemoglobin 31.1 pg (27.0-33.0); Mean Corpuscular Volume 95.4 fL (80.0-98.0); Mean Platelet Volume 9.4 fL (9.4-12.4); Monocytes Percent Auto 10.5 % (2-11); Neutrophils Absolute Auto 3.4 x10*3/uL (2.0-8.3); Neutrophils Percent Auto 36.7 % (45-73); Platelet Count 188 X10*3/uL (160-400); Red Blood Count 5.27 X10*6/uL (4.60-5.80); Red Cell Distribution Width 14.5 % (11.0-16.0); White Blood Count 9.3 X10*3/uL (4.8-10.8)
[2023-12-09 07:54] LABS: Alanine Aminotransferase 19 U/L (0-40); Albumin Level 4.2 g/dL (3.5-5.0); Alkaline Phosphatase 79 U/L (39-117); Anion Gap 11 (12-20); Aspartate Amino Transferase 21 U/L (5-37); Bilirubin Total 0.8 mg/dL (0.0-1.0); Blood Urea Nitrogen 14 mg/dL (9-16); Calcium 9.6 mg/dL (8.4-10.2); Carbon Dioxide 29 mmol/L (22-29); Chloride 107 mmol/L (96-108); Cholesterol 172 mg/dL (<200); Estimated Glomerular Filt Rate > 60; Glucose Random 108 mg/dL (60-115); HDL Cholesterol 41 mg/dL (>40); LDL Cholesterol Calculated 90 mg/dL (<100); Potassium 4.4 mmol/L (3.3-5.1); Sodium 143 mmol/L (135-145); Total Protein 7.3 g/dL (6.5-8.0); Triglycerides 205 mg/dL (<150)
[2023-12-09 07:57] LABS: D Dimer High Sensitivity < 150 NG/ML
[2023-12-09 08:01] LABS: Free T4 (Free Thyroxine) 0.92 ng/dL (0.71-1.85); Thyroid Stimulating Hormone 2.65 uIU/mL (0.32-4.0)
[2023-12-09 08:18] LABS: Folate 10.7 ng/mL (> or = 4.0); Vitamin B12 394 pg/mL (200-900)
== END 2023-12-09 06:31 | disposition home or self-care (01) ==
LOC: HO.LAB 06:30
PROVIDERS: PCP Internal Medicine; Visit Provider Internal Medicine
DX: I82.432 Acute embolism and thrombosis of left popliteal vein (principal); E78.00 Pure hypercholesterolemia, unspecified; Z12.5 Encounter for screening for malignant neoplasm of prostate
CPT/HCPCS: 36415; 80053; 80061; 82607; 82746; 84153; 84439; 84443; 85025; 85379

== ENCOUNTER 2023-12-27 09:11 | Outpatient (AMB) | payer MEDICARE, SELFPAY ==
[2023-12-27 09:16] VITALS: BP 130/72; PULSE 80; O2SAT 95; BMI 30.6
--- NOTE | 2023-12-27 09:16 | MHC.PC.OV ---
Vital Signs 12/27/23 09:16 Height 5 ft 11 in Weight 219 lb 8 oz BMI 30.6 BP 130/72 Blood Pressure Location Lt brachial Position Sitting Pulse 80 Pulse Source Pulse Oximeter Pulse Oximetry (%) 95 Oxygen Delivery Method Room Air Oxygen Flow Rate 3 Intake Visit Reasons: PF Intake Note: Patient is here today for a physical. Modular Home Crew Member Required: No Accompanied by: Self / Same As Patient Allergies Penicillins [PENICILLINS] Allergy (Intermediate, Verified 12/27/23 09:25) ITCHING Medication List - Last Reconciled 12/27/23 by Corky Dawn MD acetaminophen (Tylenol) 650 mg PO Q6H PRN alprazolam 0.25 mg PO BID PRN 30 days oxycodone 10 mg PO DAILY PRN oxygen-air delivery systems As directed rivaroxaban 20 mg PO DAILY zolpidem ER (Ambien CR) 12.5 mg PO BEDTIME PRN 30 days Tobacco use date assessed: 08/14/23 Fall risk assessment: No Falls in past year Last assessed Fall Risk: 12/27/23 Dental Screening Dental Screen Date: 05/10/23 HPI PF HPI Details 68-year-old obese male with a history of pulmonary fibrosis COPD history of DVT generalized anxiety disorder coming in for follow-up. November 11 last seen prescription for antibiotic and steroids. Colon test last done in November 2022 review of the notes has seen Hematology-Oncology 12/03/2018 right lower extremity DVT 07/28/2020 left lower extremity DVT patient had leg swelling 11/29/2023 showing nonocclusive DVT of the left popliteal vein placed back on Xarelto 20 mg once a day received also the note from pulmonary December 09 2023 oxygen dependent patient on clinical trial 2 L nasal cannula at rest 3 L nasal cannula on activity. patient is on a program pulmonary and presently on phase 3 twice a week. mood is better [facility] Medical History (Updated 12/27/23 @ 09:34 by Corky Dawn MD) Positive colorectal cancer screening using Cologuard test Colon cancer screening Anticoagulant long-term use Pneumothorax Osteopenia Right leg DVT Diverticular disease Obesity (BMI 30-39.9) COPD (chronic obstructive pulmonary disease) Anxiety and depression Pulmonary fibrosis Hypercholesterolemia Surgical History History of colonoscopy History of surgery History of surgery History of arthroscopy of right knee History of arthroscopy of left knee H/O rectal polypectomy History of tonsillectomy Family History Father Lung cancer Mother Breast cancer Paternal Grandmother Throat cancer Paternal Aunt Breast cancer Paternal Grandfather Myocardial infarction Social History Household Members: Spouse Housing: House Are you a primary health care sanitary technician to a significant other at home: No Do you presently have visiting nurse or other home services: No Alcohol intake: former Patient Tobacco Use Status: Former Tobacco user Tobacco use type: Cigarette Years Smoked: 1989 e-Cigarette/Vaping Use: Never Used Second Hand Smoke Exposure: No service: No Current occupational status: disabled Current occupational exposures/hazards: No Cognitive needs: No Hearing needs: No Vision needs: No Questionnaire Thrive Questionnaire Date Thrive assessed: 05/10/23 WAQAR-7 AMB Questionnaire WAQAR-7 Date WAQAR - 7 assessed: 08/14/23 Source: Developed by Drs. Brent Catherine, Kate Scott, Get Salguero and colleagues, with an educational lalito from [employer]. Physical exam (Primary Care) Vital Signs: Last Vital Signs Pulse 80 12/27/23 09:16 BP 130/72 12/27/23 09:16 Pulse Ox 95 12/27/23 09:16 Oxygen Delivery Method Room Air 12/27/23 09:16 Oxygen Flow Rate 3 12/27/23 09:16 BMI result Body Mass Index 30.6 Tobacco/Smoking Status: Tobacco use Status Tobacco use date assessed 08/14/23 12/27/23 09:22 Patient Tobacco Use Status Former Tobacco user 12/27/23 09:22 Tobacco use type Cigarette 12/27/23 09:22 e-Cigarette/Vaping Use Never Used 12/27/23 09:22 Thrive Assessment: Date of Thrive Assessment Date Thrive assessed 05/10/23 12/27/23 09:22 Const General: alert; No acute distress Eyes Conjunctivae: conjunctivae normal Resp Other: decreased lung sounds and crackles noted Cardio Rate: regular rate Rhythm: regular rhythm GI Inspection: Yes normal to inspection Extrem General: Yes normal to inspection and No edema Office Procedures Flu Questionnaire Does the patient have a severe egg allergy?: No Does the patient have severe life threatening allergies?: No Does the patient have a fever or illness today?: No Immunizations Fluarix Triv [id number] (PF) 45 mcg (15 mcg x 3)/0.5 mL IM syringe Performing Provider: Corky Dawn MD [facility] Administered by: ARELI Vazquez on 12/27/23 09:26 Dose Route Admin Location Dispensed Lot Number Expiration Date [facility] Supply Tech 0.5 mL IM Left Deltoid 0.5 mL [id number] 09/07/24 09662-007-67 [employer] VIS Given Date VIS Provided VIS Publication Date 12/27/23 Single Vaccine 20 Eligibility Eligibility Date Funding Source Not [facility] Eligible 12/27/23 Private Coding Level of Care Code Est Pt Level 4 (23099) Complex EM visit Add On G2211 Diagnoses Pulmonary fibrosis J84.10 DVT of leg (deep venous thrombosis) I82.432 Affected thrombotic vein of extremity: popliteal Chronicity: acute Laterality: left Pulmonary emphysema, unspecified emphysema type J43.9 COPD type: emphysema Emphysema type: unspecified Hypercholesterolemia E78.00 Obesity (BMI 30-39.9) E66.9 Impaired glucose tolerance R73.02 Generalized anxiety disorder F41.1 PSA elevation R97.20 Assessment & Plan Assessment & Plan (1) Pulmonary fibrosis: Code(s): J84.10 - Pulmonary fibrosis, unspecified Category: Medical Plan: Patient is being followed up by Pulmonary and continuing trials face 3 (2) DVT of leg (deep venous thrombosis): Comment: history of DVT in the right lower extremity in 2018 and then had a left lower extremity DVT July 2020 Code(s): I82.409 - Acute embolism and thrombosis of unspecified deep veins of unspecified lower extremity Category: Medical Qualifiers: Affected thrombotic vein of extremity: popliteal Chronicity: acute Laterality: left Qualified Code(s): I82.432 - Acute embolism and thrombosis of left popliteal vein Plan: Patient has had recurrent DVT and being followed up by hematology oncology on Xarelto 20 mg once a day (3) COPD (chronic obstructive pulmonary disease): Code(s): J44.9 - Chronic obstructive pulmonary disease, unspecified Category: Medical Qualifiers: COPD type: emphysema Emphysema type: unspecified Qualified Code(s): J43.9 - Emphysema, unspecified Plan: Continue to follow-up with Pulmonary (4) Hypercholesterolemia: Code(s): E78.00 - Pure hypercholesterolemia, unspecified Category: Medical Plan: Avoid fried foods, chicken skin, eggs, butter margarine, pastries and meat. Be it pork or beef they have a lot of cholesterol LDL goal of less than 130 and triglyceride less than 150 (5) Obesity (BMI 30-39.9): Code(s): E66.9 - Obesity, unspecified Category: Medical Plan: Continue with diet and exercise (6) Impaired glucose tolerance: Code(s): R73.02 - Impaired glucose tolerance (oral) Category: Medical Plan: Decrease the amount of carbohydrate intake, pasta, bread, rice and potatoes are all sugar and that is aside from all the sweet stuff, remember that fruits are good but they are Sweet also. (7) Generalized anxiety disorder: Code(s): F41.1 - Generalized anxiety disorder Category: Medical Plan: Continue with present medication (8) PSA elevation: Code(s): R97.20 - Elevated prostate specific antigen [PSA] Category: Medical Plan: Patient has met with Urology before and continuing surveillance. will call Orders: Orders Influenza [id number] Immunization Today Z23 - Encounter for immunization Medications: Refilled oxycodone 10 mg PO DAILY PRN 15 tabs 0RF pain J43.9 - Emphysema, unspecified, J93.9 - Pneumothorax, unspecified
== END 2023-12-27 09:54 | disposition home or self-care (01) ==
PROVIDERS: PCP Internal Medicine; Visit Provider Internal Medicine
DX: J84.10 Pulmonary fibrosis, unspecified (principal); I82.432 Acute embolism and thrombosis of left popliteal vein; J43.9 Emphysema, unspecified; E66.9 Obesity, unspecified; Z68.30 Body mass index [BMI] 30.0-30.9, adult; E78.00 Pure hypercholesterolemia, unspecified; R73.02 Impaired glucose tolerance (oral); F41.1 Generalized anxiety disorder; R97.20 Elevated prostate specific antigen [PSA]

== ENCOUNTER → 2023-12-27 09:11 | Outpatient (BNVA) | payer MEDICARE, SELFPAY | PROVIDERS: PCP Internal Medicine; Visit Provider Internal Medicine | DX: J84.10 Pulmonary fibrosis, unspecified (principal); J43.9 Emphysema, unspecified; I82.432 Acute embolism and thrombosis of left popliteal vein; E78.00 Pure hypercholesterolemia, unspecified; E66.9 Obesity, unspecified; R73.02 Impaired glucose tolerance (oral); F41.1 Generalized anxiety disorder; R97.20 Elevated prostate specific antigen [PSA]; Z79.01 Long term (current) use of anticoagulants; Z23 Encounter for immunization | CPT/HCPCS: 90471; 90656; 99212 ==

== ENCOUNTER 2024-02-14 08:43 | Outpatient (AMB) | payer MEDICARE, SELFPAY ==
--- NOTE | 2024-02-14 09:04 | A.OFFVIS_ITS ---
Intake Visit Reasons: Elevated PSA Intake Note: Patient is present for ELEVATED PSA Urology Medication:NONE Antibiotic Allergy:PENICILLIN Blood Thinner:NONE Geoscience Professor Required: No Allergies Penicillins [PENICILLINS] Allergy (Intermediate, Verified 02/14/24 09:05) ITCHING HPI Comments Details: Aric is a pleasant male. He is a patient of Dr. Dawn. 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 Betamethasone prescribed New issue of erectile dysfunction Can obtain but not maintain erection Trial sildenafil 100 mg Elevated PSA Background of interstitial pulmonary fibrosis Multiple exposures Minimal issues with urinary parameters Good stream and effective emptying PSA - 08/29 4.7 21%, 02/28 2.1, 06/30 2.5, 01/30 1.6, 05/31 3.7, 12/02 5.3 Had Good response to finasteride Continue to review PSA in 6 months [facility] Medical History (Updated 02/14/24 @ 09:42 by Se Jefferson MD) Positive colorectal cancer screening using Cologuard test Colon cancer screening Anticoagulant long-term use Pneumothorax Osteopenia Right leg DVT Diverticular disease Obesity (BMI 30-39.9) COPD (chronic obstructive pulmonary disease) Anxiety and depression Pulmonary fibrosis Hypercholesterolemia Surgical History History of colonoscopy History of surgery History of surgery History of arthroscopy of right knee History of arthroscopy of left knee H/O rectal polypectomy History of tonsillectomy Family History Father Lung cancer Mother Breast cancer Paternal Grandmother Throat cancer Paternal Aunt Breast cancer Paternal Grandfather Myocardial infarction Social History Household Members: Spouse Housing: House Are you a primary housekeeper child care to a significant other at home: No Do you presently have visiting nurse or other home services: No Alcohol intake: former Patient Tobacco Use Status: Former Tobacco user Tobacco use type: Cigarette Years Smoked: quit 1989 e-Cigarette/Vaping Use: Never Used Second Hand Smoke Exposure: No service: No Current occupational status: disabled Current occupational exposures/hazards: No Cognitive needs: No Hearing needs: No Vision needs: No Review of Systems Const Denies chills and Denies fever(s) Card Reports no additional complaints and Denies syncope Resp Denies cough GI Denies abdominal pain and Denies heartburn Reports as per HPI and Denies change in libido Neuro Denies syncope Psych Denies change in libido Endo Denies change in libido Physical Exam Const General: cooperative, healthy appearing, comfortable and no acute distress Orientation/consciousness: patient oriented x3 HEENT Face and sinus: Yes normal facial exam Mouth: moist mucous membranes Neck Neck: Yes normal visual inspection, Yes full ROM and Yes trachea midline Chest Chest palpation & inspection: normal inspection of the chest Resp Effort & Inspection: normal respiratory effort, able to speak in complete sentences and no respiratory distress GI Inspection: Yes normal to inspection Back/Spine/Pelvis Cervical Spine: normal cervical lordosis Thoracic/Lumbar Spine: thoracic and lumbar spine normal to inspection Skin General skin exam: no rashes or lesions noted Neuro General: patient oriented x3, gait normal, tone normal and moves all extremities Extrem General: Yes normal to inspection and Yes capillary refill normal Assessment & Plan Assessment & Plan (1) PSA elevation: Code(s): R97.20 - Elevated prostate specific antigen [PSA] Category: Medical (2) Erectile dysfunction: Code(s): N52.9 - Male erectile dysfunction, unspecified Category: Medical (3) Balanitis: Code(s): N48.1 - Balanitis Category: Medical Plan Trial sildenafil Betamethasone Medications: New betamethasone dipropionate 0.05% Thin coat 2 times per day 1 appl topical BID 15 grams 0RF N48.1 - Balanitis, Q55.69 - Other congenital malformation of penis sildenafil administer 60 minutes before intended activity - damon patient 100 mg PO ONCE 30 days PRN 30 tabs 1RF sexual activity N52.9 - Male erectile dysfunction, unspecified Patient Instructions: Imaging studies, laboratory and physical exam results were discussed and reviewed in detail. No major barriers to patient understanding were identified. An opportunity to ask questions regarding the treatment plan was provided. All questions were answered. The patient expressed understanding and agreement with the above treatment plan. The patient is aware they should contact our office by phone for worsening of their current condition or the appearance of new urologic symptoms. Compliance is encouraged with any medications and followup testing that is ordered. It is a privilege to participate in the urologic care of your patient. If you have any questions or concerns regarding treatment for the above conditions, or other urologic issues, please do not hesitate to contact me. The office telephone contact is [phone]. This note is constructed using voice recognition software. While every effort has been made to ensure accuracy handhole machine operator errors may have been included. Yours sincerely, Dr Se Jefferson MD, [facility] - Urology Providers of Expert, Compassionate Care for the Genitourinary System Coding Level of Care Code Est Pt Level 4 (27589) Diagnoses PSA elevation R97.20 Erectile dysfunction N52.9 Balanitis N48.1
== END 2024-02-14 09:48 | disposition home or self-care (01) ==
PROVIDERS: PCP Internal Medicine; Visit Provider Urology
DX: R97.20 Elevated prostate specific antigen [PSA] (principal); N52.9 Male erectile dysfunction, unspecified; N48.1 Balanitis
CPT/HCPCS: 99214

== ENCOUNTER → 2024-02-14 08:43 | Outpatient (BNVA) | payer MEDICARE, SELFPAY | PROVIDERS: PCP Internal Medicine; Visit Provider Urology | DX: R97.20 Elevated prostate specific antigen [PSA] (principal); N52.9 Male erectile dysfunction, unspecified; N48.1 Balanitis; Q55.69 Other congenital malformation of penis | CPT/HCPCS: 99212 ==

== ENCOUNTER 2024-03-23 07:40 | Outpatient (REF) | payer MEDICARE, SELFPAY ==
--- NOTE | ~2024-03-23 | US_ITS ---
EXAMINATION: US TRIPLEX LOWER EXTREMITY, LEFT CLINICAL INFORMATION: Recurrent deep venous thrombosis. Follow-up exam. COMPARISON: Doppler venous ultrasound dated November 14, 2023 demonstrated nonocclusive thrombus, left popliteal vein. TECHNIQUE: Color-flow triplex imaging with spectral analysis and compression Doppler were performed on the left lower extremity. FINDINGS: Respiratory variation, normal compression and augmented flow are noted throughout the left lower extremity. The visualized common femoral vein, superficial femoral vein, profunda femoral vein, popliteal vein and midcalf peroneal and posterior tibial venous segments demonstrated normal phasic flow compression and augmentation in all interrogated vessels with the exception of the left popliteal vein demonstrated an intraluminal isoechoic abnormality and incomplete compression/augmentation.. There is no Graham's cyst. US/US venous duplex LE LT IMPRESSION: Persistent nonocclusive thrombus/old/chronic, left popliteal vein. Stable. The over hauler helper that expected the requesting physician at the time of the exam. Electronically signed by: Ricky Whitehead MD 03/24/2024 07:50 AM BASILIO
== END 2024-03-23 07:41 | disposition home or self-care (01) ==
LOC: HO.US 07:40
PROVIDERS: PCP Internal Medicine; Visit Provider Internal Medicine
DX: I82.812 Embolism and thrombosis of superficial veins of left lower extremity (principal)
CPT/HCPCS: 93971

== ENCOUNTER → 2024-03-23 07:41 | Outpatient (BNV) | payer MEDICARE, SELFPAY | PROVIDERS: PCP Internal Medicine; Visit Provider Radiology Diagnostic Radiology | DX: I82.502 Chronic embolism and thrombosis of unspecified deep veins of left lower extremity (principal) | CPT/HCPCS: 93971 ==

== ENCOUNTER 2024-04-17 08:50 | Outpatient (REF) | payer MEDICARE, SELFPAY ==
[2024-04-17 10:55] LABS: PSA,Total (Free>4and<10) 5.13 ng/mL (0.00-4.00)
[2024-04-21 05:58] LABS: Free Prostate Spec Ag 1.6 ng/mL; Percent Free Prostate Spec Ag 30 % (calc) (>25); Prostate Specific Ag Total 5.4 ng/mL (< OR = 4.0)
== END 2024-04-17 08:51 | disposition home or self-care (01) ==
LOC: HO.LAB 08:50
PROVIDERS: PCP Internal Medicine; Visit Provider Urology
DX: Z12.5 Encounter for screening for malignant neoplasm of prostate (principal); J84.10 Pulmonary fibrosis, unspecified; E66.9 Obesity, unspecified; J43.9 Emphysema, unspecified; R73.02 Impaired glucose tolerance (oral); I82.432 Acute embolism and thrombosis of left popliteal vein; R97.20 Elevated prostate specific antigen [PSA]; F41.1 Generalized anxiety disorder
CPT/HCPCS: 36415; 84153; 84154; 99212

== ENCOUNTER 2024-05-28 10:16 | Outpatient (AMB) | payer MEDICARE, SELFPAY ==
--- NOTE | 2024-05-28 10:17 | A.OFFVIS_ITS ---
Intake Visit Reasons: 3m/PSA Intake Note: Patient is present for 3M/PSA Urology Medication:SILDENAFIL Antibiotic Allergy:PENICILLINS Blood Thinner:NONE Bass Mechanism Maker Required: No Allergies Penicillins [PENICILLINS] Allergy (Intermediate, Verified 05/28/24 10:18) ITCHING HPI Comments Details: Aric is a pleasant male. He is a patient of Dr. Dawn. He is here for the following urologic condition - elevated PSA - erectile dysfunction Telemedicine Evaluation 15 min Consultation DoximCardio control Iftikhar Video PSA remains stable Three-month follow-up Prior prescription for sildenafil for erections Good response to clotrimazole for dermatitis Sildenafil effective PSA showed high free percentage Six-month follow-up PSA Erectile dysfunction Can obtain but not maintain erection Trial sildenafil 100 mg Elevated PSA Background of interstitial pulmonary fibrosis Multiple exposures Minimal issues with urinary parameters Good stream and effective emptying PSA - 08/29 4.7 21%, 02/28 2.1, 06/30 2.5, 01/30 1.6 on finasteride, 05/31 3.7, 12/02 5.3, 05/05 5.4 30% Continue to review PSA in 6 months [facility] Medical History (Updated 05/22/24 @ 16:01 by Anita Eldridge MD) Positive colorectal cancer screening using Cologuard test Colon cancer screening Anticoagulant long-term use Pneumothorax Osteopenia Right leg DVT Diverticular disease Obesity (BMI 30-39.9) COPD (chronic obstructive pulmonary disease) Anxiety and depression Pulmonary fibrosis Hypercholesterolemia Surgical History History of colonoscopy History of surgery History of surgery History of arthroscopy of right knee History of arthroscopy of left knee H/O rectal polypectomy History of tonsillectomy Family History Father Lung cancer Mother Breast cancer Paternal Grandmother Throat cancer Paternal Aunt Breast cancer Paternal Grandfather Myocardial infarction Social History Household Members: Spouse Housing: House Are you a primary care nurse rn to a significant other at home: No Do you presently have visiting nurse or other home services: No Alcohol intake: former Patient Tobacco Use Status: Former Tobacco user Tobacco use type: Cigarette Years Smoked: quit 1989 e-Cigarette/Vaping Use: Never Used Second Hand Smoke Exposure: No service: No Current occupational status: disabled Current occupational exposures/hazards: No Cognitive needs: No Hearing needs: No Vision needs: Yes Review of Systems Const All systems reviewed & are unremarkable except as noted in HPI and below Reports no additional complaints Resp Reports no additional complaints GI Reports no additional complaints Reports as per HPI Musc Reports no additional complaints Physical Exam Telemedicine evaluation Appropriate responses Regular breathing rate and rhythm HEENT Head: Yes normal to inspection Ears: hearing grossly normal bilaterally Eyes General: appearance normal, both eyes and all related structures Neck Neck: Yes normal visual inspection Chest Chest palpation & inspection: normal inspection of the chest Resp Effort & Inspection: normal respiratory effort and able to speak in complete sentences Telehealth Telehealth Telehealth Platform: [employer] Location of provider rendering services: practice address Location of patient: address on file Patient Identification confirmed using: Name, : Yes Telehealth method: video Patient verbally consented to treatment: Yes Patient verbally consented to billing insurance company: Yes Patient informed of any privacy concerns related to visit: Yes Minutes spent on Phone/Video with Pt.: 15 Assessment & Plan Assessment & Plan (1) PSA elevation: Code(s): R97.20 - Elevated prostate specific antigen [PSA] Category: Medical (2) Erectile dysfunction: Code(s): N52.9 - Male erectile dysfunction, unspecified Category: Medical Plan Six-month follow-up PSA office Orders: Orders PSA,Total (Free>4and<10) 6 Months R97.20 - Elevated prostate specific antigen [PSA] Patient Instructions: This note is constructed using voice recognition software. While every effort has been made to ensure accuracy deck steward errors may have been included. Imaging studies, laboratory and physical exam results were discussed and reviewed in detail. No major barriers to patient understanding were identified. An opportunity to ask questions regarding the treatment plan was provided. All questions were answered. The patient expressed understanding and agreement with the above treatment plan. The patient is aware they should contact our office by phone for worsening of their current condition or the appearance of new urologic symptoms. Compliance is encouraged with any medications and followup testing that is ordered. It is a privilege to participate in the urologic care of your patient. If you have any questions or concerns regarding treatment for the above conditions, or other urologic issues, please do not hesitate to contact me. The office telephone contact is [phone]. SincerelDr Se mayes MD, [facility] - Urology Compassionate Specialist Care for the Genitourinary System Coding Level of Care Code Tele Est Pt Level 3 (74736) Complex EM visit Add On G2211 Diagnoses PSA elevation R97.20 Erectile dysfunction N52.9
== END 2024-05-28 10:54 | disposition home or self-care (01) ==
LOC: HO.HUSH 10:16
PROVIDERS: PCP Internal Medicine; Visit Provider Urology
DX: R97.20 Elevated prostate specific antigen [PSA] (principal); N52.9 Male erectile dysfunction, unspecified
CPT/HCPCS: 99213; G2211

== ENCOUNTER 2024-06-30 15:36 | Outpatient (AMB) | payer MEDICARE, SELFPAY ==
--- NOTE | 2024-06-30 15:37 | A.OFFPC_ITS ---
Intake Visit Reasons: ? Sinus infection Allergies Penicillins [PENICILLINS] Allergy (Intermediate, Verified 06/30/24 15:37) ITCHING Tobacco use date assessed: 04/17/24 Fall risk assessment: No Falls in past year Last assessed Fall Risk: 06/30/24 Dental Screening Dental Screen Date: 04/17/24 HPI ? Sinus infection HPI Details lung congestion 5 days, no fevers, ? sinus infection, , no sore throat, , cough, productive . relates to me that May daughter and has been hugging a lot of other people. Question of where he got it. [facility] Medical History (Updated 06/30/24 @ 17:34 by Corky Dawn MD) Positive colorectal cancer screening using Cologuard test Colon cancer screening Anticoagulant long-term use Pneumothorax Osteopenia Right leg DVT Diverticular disease Obesity (BMI 30-39.9) COPD (chronic obstructive pulmonary disease) Anxiety and depression Pulmonary fibrosis Hypercholesterolemia Surgical History History of colonoscopy History of surgery History of surgery History of arthroscopy of right knee History of arthroscopy of left knee H/O rectal polypectomy History of tonsillectomy Family History Father Lung cancer Mother Breast cancer Paternal Grandmother Throat cancer Paternal Aunt Breast cancer Paternal Grandfather Myocardial infarction Social History Household Members: Spouse Housing: House Are you a primary career guidance counselor to a significant other at home: No Do you presently have visiting nurse or other home services: No Alcohol intake: former Patient Tobacco Use Status: Former Tobacco user Tobacco use type: Cigarette Years Smoked: quit 1989 e-Cigarette/Vaping Use: Never Used Second Hand Smoke Exposure: No service: No Current occupational status: disabled Current occupational exposures/hazards: No Cognitive needs: No Hearing needs: No Vision needs: Yes Questionnaire Thrive Questionnaire Date Thrive assessed: 04/17/24 WAQAR-7 AMB Questionnaire WAQAR-7 Date WAQAR - 7 assessed: 04/17/24 Source: Developed by Drs. Brent Catherine, Kate Scott, Get Salguero and colleagues, with an educational lalito from [employer]. Physical exam (Primary Care) Tobacco/Smoking Status: Tobacco use Status Tobacco use date assessed 04/17/24 06/30/24 15:38 Patient Tobacco Use Status Former Tobacco user 06/30/24 15:38 Tobacco use type Cigarette 06/30/24 15:38 e-Cigarette/Vaping Use Never Used 06/30/24 15:38 Thrive Assessment: Date of Thrive Assessment Date Thrive assessed 04/17/24 06/30/24 15:38 Telehealth Telehealth Telehealth Platform: [employer] Location of provider rendering services: practice address Location of patient: address on file Patient Identification confirmed using: Name, : Yes Telehealth method: voice only Patient verbally consented to treatment: Yes Patient verbally consented to billing insurance company: Yes Patient informed of any privacy concerns related to visit: Yes Minutes spent on Phone/Video with Pt.: 15 Coding Level of Care Code Tele Est Pt Level 3 (14092) Diagnoses Sinus congestion R09.81 Assessment & Plan Assessment & Plan (1) Sinus congestion: Code(s): R09.81 - Nasal congestion Category: Medical Plan: For the sore throat can take Cepacol lozenges, discussed about Delsym to help with dry cough so she can rest and advised to increase oral fluids. Patient also can take Tylenol for chills and fever. Patient tested for COVID negative. Plan History of Present Illness The patient is a 68-year-old male presenting with acute sinusitis and respiratory congestion. He began experiencing symptoms five days prior, including congestion and a cough accompanied by light green phlegm. There is no reported fever, and although he initially had sneezing, this has resolved. His symptoms appeared following attendance at a large gathering on June 20, potentially indicating exposure. However, a COVID-19 test conducted today was negative. The patient expresses difficulty in breathing and a sensation of chest tightness, suggesting possible exacerbation of his COPD associated with his pulmonary fibrosis. His history includes hypercholesterolemia, impaired glucose tolerance, and generalized anxiety disorder. He is also allergic to penicillin. Review of Systems - Respiratory: Reports congestion in the lungs, cough producing light green phlegm, and chest tightness. Denies fever and sore throat. - General: Reports recent negative COVID-19 test. Denies recent illness in the household. Plan I will prescribe Azithromycin Zithromax) as the patient has responded to it well in the past, considering his penicillin allergy. This will address his sinusitis without the risk of allergic reactions. I instructed him to observe his respiratory status closely, especially due to his underlying pulmonary cond itions. Should there be any exacerbation or worsening, a reassessment will be warranted to consider further interventions such as corticosteroids. Emphasized the importance of staying hydrated and closely following up for any complications until his next scheduled appointment in mid-July. Patient was informed and verbally consented to the use of an ambient scribe for clinic note documentation during this visit. Discussion Notes I discussed with the patient the choice of Azithromycin for his symptoms of sinusitis and respiratory congestion. I highlighted the antibiotic's efficacy in treating suspected bacterial infections and its suitability given his penicillin allergy. We reviewed the importance of monitoring symptoms associated with his respiratory conditions, and the potential need for corticosteroids should symptoms worsen. The risks and benefits of the chosen treatment were thoroughly outlined, and I provided reassurance regarding his recent negative COVID-19 test. I recommended maintaining adequate hydration and emphasized follow-up care scheduled for July to reassess his condition and overall health status. We also acknowledged his recent emotional stress due to the bereavement and its possible impact on his current health. Patient Instructions - Take Azithromycin (Zithromax) as prescribed, completing the full course. - Monitor respiratory symptoms closely and look out for any worsening or new symptoms. - Drink plenty of water daily to stay hydrated. - Keep the scheduled follow-up appointment in mid-July. - Contact the office if symptoms worsen or if there are any concerns before the next appointment. - Rest and take care of your wellness, especially after recent personal loss. Medications: Refilled azithromycin (Zithromax) For 250 mg dose pack: take 500 mg today (day 1), then 250 mg for 4 days (days 2-5) PO 6 tabs 0RF J44.1 - Chronic obstructive pulmonary disease with (acute) exacerbation
== END 2024-06-30 18:02 | disposition home or self-care (01) ==
LOC: HO.HMCH 15:36
PROVIDERS: PCP Internal Medicine; Visit Provider Internal Medicine
DX: R09.81 Nasal congestion (principal)

== ENCOUNTER → 2024-06-30 15:36 | Outpatient (BNVA) | payer MEDICARE, SELFPAY | PROVIDERS: PCP Internal Medicine; Visit Provider Internal Medicine ==

== ENCOUNTER 2024-07-24 09:35 | Outpatient (AMB) | payer MEDICARE, SELFPAY ==
--- NOTE | 2024-07-24 09:43 | MHC.PC.OV ---
Vital Signs 07/24/24 09:44 Height 5 ft 11 in Weight 228 lb BMI 31.8 BP 114/62 Blood Pressure Location Lt brachial Position Sitting Pulse 57 Pulse Source Pulse Oximeter Pulse Oximetry (%) 94 Oxygen Delivery Method Nasal Cannula Intake Visit Reasons: WAQAR, PF Allergies Penicillins [PENICILLINS] Allergy (Intermediate, Verified 07/24/24 09:44) ITCHING Tobacco use date assessed: 04/17/24 Fall risk assessment: No Falls in past year Dental Screening Dental Screen Date: 04/17/24 HPI WAQAR, PF HPI Details daughter atery in neck bled. [facility] Medical History (Updated 06/30/24 @ 17:34 by Corky Dawn MD) Positive colorectal cancer screening using Cologuard test Colon cancer screening Anticoagulant long-term use Pneumothorax Osteopenia Right leg DVT Diverticular disease Obesity (BMI 30-39.9) COPD (chronic obstructive pulmonary disease) Anxiety and depression Pulmonary fibrosis Hypercholesterolemia Surgical History History of colonoscopy History of surgery History of surgery History of arthroscopy of right knee History of arthroscopy of left knee H/O rectal polypectomy History of tonsillectomy Family History Father Lung cancer Mother Breast cancer Paternal Grandmother Throat cancer Paternal Aunt Breast cancer Paternal Grandfather Myocardial infarction Social History Household Members: Spouse Housing: House Are you a primary wound care technician to a significant other at home: No Do you presently have visiting nurse or other home services: No Alcohol intake: former Patient Tobacco Use Status: Former Tobacco user Tobacco use type: Cigarette Years Smoked: quit 1989 e-Cigarette/Vaping Use: Never Used Second Hand Smoke Exposure: No service: No Current occupational status: disabled Current occupational exposures/hazards: No Cognitive needs: No Hearing needs: No Vision needs: Yes Questionnaire PHQ-9 Over the last 2 weeks, how often have you been bothered by any of the following problems? 1. Little interest or pleasure in doing things: not at all 2. Feeling down, depressed, or hopeless: not at all 3. Trouble falling or staying asleep, or sleeping too much: not at all 4. Feeling tired or having little energy: not at all 5. Poor appetite or overeating: not at all 6. Feeling bad about yourself - or that you are a failure or have let yourself or your family down: not at all 7. Trouble concentrating on things, such as reading the newspaper or watching television: not at all 8. Moving or speaking so slowly that other people could have noticed. Or the opposite - being so fidgety or restless that you have been moving around a lot more than usual: not at all 9. Thoughts that you would be better off or of hurting yourself in some way: not at all Total score: 0 Source: Developed by Drs. Brent Catherine, Kate Scott, Get Salguero and colleagues, with an educational lalito from [employer]. Thrive Questionnaire Date Thrive assessed: 07/24/24 I am a: Patient What is your living situation today?: I have a steady place to live Within the past 12 months, did the food you bought not last and you didn't have the money to get more?: I choose not to answer this question Within the past 12 months, did you worry whether your food would run out before you got money to buy more?: I choose not to answer this question Do you have trouble paying for medicines?: I choose not to answer this question Do you have trouble getting transportation to medical appointments?: I choose not to answer this question Do you have trouble paying your heating and electricity bill?: I choose not to answer this question Do you have trouble taking care of your child, family member or friend?: I choose not to answer this question Do you have trouble with day-to-day activities such as bathing, preparing meals, shopping, managing finances, etc.?: I choose not to answer this question Are you currently unemployed and looking for a job?: I choose not to answer this question Are you interested in more education?: I choose not to answer this question THRIVE Score: 0 WAQAR-7 AMB Questionnaire WAQAR-7 Date WAQAR - 7 assessed: 04/17/24 Source: Developed by Drs. Brent Catherine, Kate Scott, Get Salguero and colleagues, with an educational lalito from [employer]. Physical exam (Primary Care) Vital Signs: Last Vital Signs Pulse 57 07/24/24 09:44 BP 114/62 07/24/24 09:44 Pulse Ox 94 07/24/24 09:44 Oxygen Delivery Method Nasal Cannula 07/24/24 09:44 BMI result Body Mass Index 31.8 Tobacco/Smoking Status: Tobacco use Status Tobacco use date assessed 04/17/24 07/24/24 09:50 Patient Tobacco Use Status Former Tobacco user 07/24/24 09:50 Tobacco use type Cigarette 07/24/24 09:50 e-Cigarette/Vaping Use Never Used 07/24/24 09:50 PHQ-9: PHQ-9 Score PHQ-9: Total score 0 07/24/24 09:57 Thrive Assessment: Date of Thrive Assessment Date Thrive assessed 07/24/24 07/24/24 09:50 Const General: alert; No acute distress Eyes Conjunctivae: conjunctivae normal Resp Auscultation: clear to auscultation bilaterally Cardio Rate: regular rate Rhythm: regular rhythm GI Inspection: Yes normal to inspection Extrem General: Yes normal to inspection and No edema Coding Level of Care Code Est Pt Level 4 (79573) Complex EM visit Add On G2211 Diagnoses Obesity (BMI 30-39.9) E66.9 Pulmonary emphysema, unspecified emphysema type J43.9 COPD type: emphysema Emphysema type: unspecified Pulmonary fibrosis J84.10 Hypercholesterolemia E78.00 Impaired glucose tolerance R73.02 DVT of leg (deep venous thrombosis) I82.432 Affected thrombotic vein of extremity: popliteal Chronicity: acute Laterality: left PSA elevation R97.20 Generalized anxiety disorder F41.1 Assessment & Plan Assessment & Plan (1) Obesity (BMI 30-39.9): Code(s): E66.9 - Obesity, unspecified Category: Medical Plan: Diet and exercise (2) COPD (chronic obstructive pulmonary disease): Comment: mild Code(s): J44.9 - Chronic obstructive pulmonary disease, unspecified Category: Medical Qualifiers: COPD type: emphysema Emphysema type: unspecified Qualified Code(s): J43.9 - Emphysema, unspecified Plan: Continuing with oxygen (3) Pulmonary fibrosis: Code(s): J84.10 - Pulmonary fibrosis, unspecified Category: Medical Plan: Continuing to follow-up with Pulmonary (4) Hypercholesterolemia: Code(s): E78.00 - Pure hypercholesterolemia, unspecified Category: Medical Plan: Avoid fried foods, chicken skin, eggs, butter margarine, pastries and meat. Be it pork or beef they have a lot of cholesterol LDL goal of less than 130 and triglyceride of less than 150. December last blood work (5) Impaired glucose tolerance: Code(s): R73.02 - Impaired glucose tolerance (oral) Category: Medical Plan: Decrease the amount of carbohydrate intake, pasta, bread, rice and potatoes are all sugar and that is aside from all the sweet stuff, remember that fruits are good but they are Sweet also. December last blood work (6) DVT of leg (deep venous thrombosis): Comment: history of DVT in the right lower extremity in 2018 and then had a left lower extremity DVT July 2020 Code(s): I82.409 - Acute embolism and thrombosis of unspecified deep veins of unspecified lower extremity Category: Medical Qualifiers: Affected thrombotic vein of extremity: popliteal Chronicity: acute Laterality: left Qualified Code(s): I82.432 - Acute embolism and thrombosis of left popliteal vein Plan: Patient follows up with Hematology-Oncology with the recurrence as well as chronic nonocclusive thrombus will be on Xarelto 20 mg once a day (7) PSA elevation: Code(s): R97.20 - Elevated prostate specific antigen [PSA] Category: Medical Plan: Patient follows up with urology and continue to follow-up PSA numbers April last tested (8) Generalized anxiety disorder: Code(s): F41.1 - Generalized anxiety disorder Category: Medical Plan: Continue with present medication as needed Plan History of Present Illness The patient is a 68-year-old male presenting with sinus congestion. He recalls being prescribed antibiotics for similar symptoms during his last visit in June and has noted a recurrence of these symptoms. He has a complex medical history, including pulmonary fibrosis, hypercholesterolemia, COPD, impaired glucose tolerance, and a history of DVT, which required placement on long-term anticoagulation therapy with Xarelto. He reports his current DVT management involves monitoring a non-occlusive thrombus in the left popliteal vein. The patient's cholesterol management is under routine surveillance, with recent LDL levels within target parameters. The patient?s chronic medical conditions are being managed through regular consultations and treatment adjustments such as oxygen therapy for pulmonary support and lifestyle modifications, including a focus on diet and exercise. He keely with insomnia and is using consistent medication routines, expressing a stable condition overall despite recent grief from the loss of his daughter. His current concerns also include occasional gastrointestinal discomfort in the form of chest-resembling pain associated with air swallowing and belching. The patient indicates lifestyle adjustments, such as switching to an elliptical, which has improved his physical endurance over the treadmill previously used. Emotional support is sought through [employer] day [employer] counselor, assisting with his mental well-being and recent bereavement struggles. Health Maintenance - Oxygen therapy for pulmonary management. - LDL cholesterol under target control with recent measurements. - Continuation of medication for glucose tolerance and DVT prevention. - Regular monitoring of PSA with attention to continuing trends. - Follow-up with urology for chronic non-occlusive thrombus. - Surveillance for gastrointestinal symptoms and bowel health given reports of diarrhea. - Lifestyle modifications include exercise, diet management, and spiritual counseling. Social History - Experiences significant grief from the recent loss of his daughter. - Engages in exercise using an elliptical, which he finds more beneficial compared to a treadmill. - Regular attendance at a pulmonary rehabilitation program. - Utilizes spiritual guidance for coping with recent acute stressors. - Experiences difficulties with certain activities due to obesity, such as bending over and tying shoes. - Plans outdoor activities to improve mood and physical health, using a garden bed for light tasks. Review of Systems - Respiratory: Reports sinus congestion. Denies consistent chest pain. - Cardiovascular: Denies chest tightness, arm pain, or dizziness. - Gastrointestinal: Reports occasional indigestion-like pain relieved by belching; current episodes of diarrhea. - Psychological: Reports coping with recent grief; acknowledges some emotional variability. Physical Exam Results - Labs: PSA level of 5.4 (April), LDL level of 90 (November 2023). - Tests and Diagnostics: Non-occlusive DVT in the left popliteal vein (November 2023). Plan The management plan includes continued monitoring and treatment adjustments for the patient's chronic medical conditions. Sinus congestion may require antibiotics pending symptom progression assessment. Pulmonary health is maintained through oxygen therapy and modified exercise programs. Cholesterol levels are being effectively managed, adhering to LDL targets. Anticoagulation therapy with Xarelto remains critical for DVT prevention, with regular PSA reviews scheduled. Coping strategies related to bereavement are supported through spiritual and community activities. Nutritional and exercise modifications aim to reduce weight and improve overall health. Patient was informed and verbally consented to the use of an ambient scribe for clinic note documentation during this visit. Discussion Notes I discussed with the patient the importance of monitoring sinus congestion, particularly if symptoms persist or worsen. We reviewed his continued adherence to oxygen therapy and exercise adjustments, highlighting the benefit of the elliptical. I emphasized maintaining target LDL cholesterol levels and the critical nature of his anticoagulant use for DVT management. We talked about regular monitoring of PSA given his previous elevation, and the need for continued follow-up with urology. Further, I addressed the patient's emotional well-being, encouraging ongoing spiritual support and to continue expressing any emotional challenges. We concluded with a focus on maintaining a balanced diet, lifestyle adjustments, and the importance of regular follow-up to optimize his health management strategies. Patient Instructions - Continue prescribed medication and oxygen therapies as directed. - Monitor sinus symptoms and inform if they worsen. - Maintain regular exercise on the elliptical as tolerated. - Follow dietary recommendations to manage cholesterol and glucose. - Keep all follow-up appointments with specialists and for regular labs. - Seek support for emotional distress, contact if mental health declines.
[2024-07-24 09:44] VITALS: BP 114/62; PULSE 57; O2SAT 94; BMI 31.8
== END 2024-07-24 10:14 | disposition home or self-care (01) ==
LOC: HO.HMCH 09:36
PROVIDERS: PCP Internal Medicine; Visit Provider Internal Medicine
DX: J43.9 Emphysema, unspecified (principal); J84.10 Pulmonary fibrosis, unspecified; I82.432 Acute embolism and thrombosis of left popliteal vein; Z68.31 Body mass index [BMI] 31.0-31.9, adult; E66.9 Obesity, unspecified; E78.00 Pure hypercholesterolemia, unspecified; R73.02 Impaired glucose tolerance (oral); R97.20 Elevated prostate specific antigen [PSA]; F41.1 Generalized anxiety disorder

== ENCOUNTER → 2024-07-24 09:35 | Outpatient (BNVA) | payer MEDICARE, SELFPAY | PROVIDERS: PCP Internal Medicine; Visit Provider Internal Medicine | DX: J43.9 Emphysema, unspecified (principal); E66.9 Obesity, unspecified; J84.10 Pulmonary fibrosis, unspecified; E78.00 Pure hypercholesterolemia, unspecified; R73.02 Impaired glucose tolerance (oral); I82.432 Acute embolism and thrombosis of left popliteal vein; R97.20 Elevated prostate specific antigen [PSA]; F41.1 Generalized anxiety disorder; Z99.81 Dependence on supplemental oxygen; Z87.891 Personal history of nicotine dependence | CPT/HCPCS: 96127; 99212 ==

== ENCOUNTER 2024-11-11 06:32 | Outpatient (REF) | payer MEDICARE, SELFPAY ==
--- OUTSIDE RECORDS SUMMARY | 2024-11-11 06:34 | XMS_ITS | Clinical Summary ---
Author Organization [facility] Address [address] [place] [phone] Phone Care Team Providers Care Charger Tester Name Role Phone Corky Dawn MD Primary Care Provider [phone] Natalio Hahn MD Unavailable [phone] Justin Henning MD Unavailable [phone] Javon Griffin MD Unavailable [email or web address] Allergies Active Allergy Reactions Criticality Noted Date Comments House Dust Mite 08/27/2017 Mold Extracts 08/27/2017 Penicillins 08/27/2017 Ragweed 08/27/2017 Medications ipratropium-alb uteroL (COMBIVENT RESPIMAT) 20-100 mcg/actuation Mist Inhale 1 puff into the lungs 4 (four) times a day as needed. Active nintedanib (OFEV) 150 mg Cap Take 150 mg by mouth every 12 (twelve) hours. Active rivaroxaban (XARELTO) 20 mg Tab Take 20 mg by mouth daily. Active LORazepam (ATIVAN) 0.5 MG tablet Take 0.25 mg by mouth 2 (two) times a day as needed for anxiety. Active acetaminophen (TYLENOL) 500 MG tablet Take 1,000 mg by mouth every 6 (six) hours as needed for pain (specific location in comments). Active oxyCODONE HCl 10 mg Tab Take 5 mg by mouth every 4 (four) hours as needed. ChronicPain-p artial fill ok Active Active Problems Problem Noted Date Diagnosed Date Encounter for pre-transplant evaluation for lung transplant 10/12/2020 Pulmonary fibrosis 09/20/2020 Left knee pain 08/22/2017 Bullous emphysema Anxiety Allergic rhinitis IPF (idiopathic pulmonary fibrosis) ALVINO (obstructive sleep apnea) Immunizations Immunization Administration Dates Next Due COVID-19 (Pre-12/31) Pfizer Vaccine, mRNA, PF ,06/19/2020 INFLUENZA, SPLIT VIRUS, TRIVALENT PF 12/07/2016 Influenza Quadrivalent Preservative Free IM 12/09 Pneumococcal polysaccharide PPSV23 11/28/2018 Tdap 07/11/2016 Family History Medical History Relation Comments No Known Problems Brother Lung cancer Father No Known Problems Maternal Aunt No Known Problems Maternal Grandfather No Known Problems Maternal Grandmother No Known Problems Maternal Uncle Breast cancer Mother Dementia Mother Infl. arthritis Mother No Known Problems Paternal Aunt No Known Problems Paternal Grandfather No Known Problems Paternal Grandmother No Known Problems Paternal Uncle No Known Problems Sister Cancer Unspecified Clotting disorder Neg Hx Collagen disease Neg Hx Depression Neg Hx Diabetes Neg Hx Dislocations Neg Hx Gout Neg Hx Heart disease Neg Hx Osteoporosis Neg Hx Scoliosis Neg Hx Relation Status Comments Brother Father Maternal Aunt Maternal Grandfather Maternal Grandmother Maternal Uncle Mother Alive Paternal Aunt Paternal Grandfather Paternal Grandmother Paternal Uncle Sister Unspecified Social History Tobacco Use Types Packs/Day Years Used Date Smoking Tobacco: Former Cigarettes Smokeless Tobacco: Never Comments:stopped at age 27, < 1 pack per week Alcohol Use Standard Drinks/Week Comments Not Currently 0 (1 standard drink = 0.6 oz pur e alcohol) Stopped alcohol 2 years ago Education Answer Date Recorded Are you interested in more education? Not on umang e 07/06/2022 Are you concerned about learning? Not on file 07/06/2022 No 07/06/2022 No 07/06/2022 Digital Access Answer Date Recorded No 08/06/2022 No 08/06/2022 No 08/06/2022 Reliable internet access at home? Not on file 08/06/2022 Device with a working camera? Not on file Sex and Gender Information Value Date Recorded Sex Assigned at Not on file Legal Sex Male 9:51 PM EDT Gender Identity Not on file Sexual Orientation Not on file Last Filed Vital Signs Vital Sign Reading Time Taken Comments Blood Pressure 137/75 10/12/2020 10:41 AM EDT Pulse 59 10/12/2020 10:41 AM EDT Temperature 36.3 C (97.4 F) 10/12/2020 10:41 AM EDT Respiratory Rate - - Oxygen Saturation 98% 10/12/2020 10:41 AM EDT Inhaled Oxygen Concentration - - Weight 97.5 kg (215 lb) 10/12/2020 10:41 AM EDT Height 180.3 cm (5' 11 ) 10/12/2020 10:41 AM EDT Body Mass Index 29.99 10/12/2020 10:41 AM EDT Plan of Treatment Health Maintenance Due Date Last Done Comments SMOKING Hx and SMOKELESS TOBACCO SCREENING 1970 COLOGUARD 2002 COLONOSCOPY 2002 COLORECTAL CANCER SCREENING 2002 FIT TEST 2002 FOBT 2002 SIGMOIDOSCOPY 2002 VIRTUAL COLONOSCOPY 2002 ZOSTER VACCINES (1 of 2) 11/05/2007 RSV VACCINE (1 - Risk 60-74 years 1-dose series) 2017 PNEUMOCOCCAL VACCINES (50+ years) (2 of 2 - PCV) 11/29/2019 11/28/2018 CREATININE LEVEL 10/12/2021 10/12/2020 DEPRESSION SCREENING 10/12/2021 10/12/2020 ABDOMINAL AORTIC ANEURYSM (AAA) SCREENING 2022 INFLUENZA VACCINE (#1) 2024 9, 12/07/2016 COVID-19 VACCINE (3 - 2024-2 6 season) 2024 07/11/2020, 06/19/2020 LIPID PANEL 10/12/2025 10/12/2020 Adult Td,Tdap Booster 07/11/2026 07/11/2016 HEPATITIS C SCREENING Completed 10/12/2020 HEPATITIS A VACCINES Aged Out No long er eligible based on patient's age to complete this topic HIB VACCINES Aged Out No longer eligi ble based on patient's age to complete this topic MENINGOCOCCAL VACCINES (ACWY) Aged Out No longer eligible based on patient's age to complete this topic MENINGOCOCCAL VACCINES (B) Aged Out N o longer eligible based on patient's age to complete this topic Medical Devices Not on file Procedures Procedure Name Priority Date/Time Associated Diagnosis Comments LIPID PANEL Routine 10/12/2020 12:58 PM EDT Encounter for pre-transplant evaluation for lung transplant HEPATITIS C ANTIBODY, QUALITATIVE Routine 10/12/2020 12:58 PM EDT Need for hepatitis C screening test COMPREHENSIVE METABOLIC PANEL Routine 10/12/2020 12:58 PM EDT Encounter for pre-transplant evaluation for lung transplant from Last 3 Months or Most Recently Relevant to Health Maintenance Results * Comprehensive metabolic panel (10/12/2020 12:58 PM EDT) SODIUM 143 136 - 145 mmol/L [facility] POTASSIUM 3.9 3.4 - 5.1 mmol/L [facility] CHLORIDE 103 98 - 107 mmol/L [facility] CO2 29 22 - 31 mmol/L [facility] BUN 11 6 - 23 mg/dL [facility] CREATININE 1.05 0.50 - 1.20 mg/dL [facility] GLUCOSE 90 70 - 100 mg/dL [facility] ALBUMIN 4.8 3.5 - 5.2 g/dL [facility] TOTAL PROTEIN 7.8 6.4 - 8.3 g/dL [facility] CALCIUM 9.3 8.8 - 10.7 mg/dL [facility] ALKALINE PHOSPHATASE 87 35 - 130 U/L [facility] TOTAL BILIRUBIN 0.6 0.0 - 1.0 mg/dL [facility] AST 17 10 - 50 U/L [facility] ALT 11 10 - 50 U/L [facility] GLOBULIN 3.0 2.2 - 4.2 g/dL [facility] EGFR 76 >59 mL/min/1.7 3m2 [facility] Comment:Estimated glomerular filtration rate calculated using the CKD-EPI equation. ANION GAP 11 7 - 17 mmol/L [facility] 10/12/2020 12:5 8 PM EDT 10/12/2020 1:50 PM EDT us Haley Navarro NP LAB BLOOD ORDERABLES Final Res ult [facility] [address] [place] [phone] * Hepatitis C antibody, qualitative (10/12/2020 12:58 PM EDT) HCV Nonreactive Nonreactive [facility] 10/12/2020 12:5 8 PM EDT 10/12/2020 1:50 PM EDT Haley Navarro ENGINE REPAIRER [employer]ODUCTION LAB BLOOD ORDERABLES Final Res ult Performing Organization Address City/[facility]/ZIP Co de Phone Number [facility] [address] [place] [phone] * (ABNORMAL) Lipid panel (10/12/2020 12:58 PM EDT) CHOLESTEROL 183 <200 mg/dL [facility] TRIGLYCERIDES 192(H) 35 - 150 mg/dL [facility] HDL 52 40 - 80 mg/dL [facility] CALCULATED LDL 93 50 - 129 mg/dL [facility] VLDL 38 mg/dL [facility] CARDIAC RISK RATIO 3.5 0.0 - 4.0 [facility] 10/12/2020 12:5 8 PM EDT 10/12/2020 1:50 PM EDT Haley Navarro ENGINE REPAIRER [employer]ODUCTION LAB BLOOD ORDERABLES Final Res ult Performing Organization Address City/[facility] Co de Phone Number [facility] [address] [place] [phone] from Last 3 Months or Most Recently Relevant to Health Maintenance Insurance [place] [address] [place] [address] [place] [address] [employer]CO [employer] [facility] Care Teams Charger Tester Relationship Specialty Start Date End Date López, Corky Frankel MD [address] [place] [address] [place] [phone] PCP - General Internal Medicine 09/13/20 Natalio Hahn MD [address] [place] [address] [address] [place] [address] Referring Physician Internal Medicine 09/14/20 Justin Henning MD [address] [place], [place] [address] [address] [place] [address] Referring Physician Pulmonary Disease 09/14/20 Javon Griffin MD [address] [place] [address] [email or web address] Referring Physician Pulmonary Disease 09/19/20 Anita Eldridge [address] [place] [id number] Referring Physician Hematology and Oncology 10/18/20 Additional Source Comments The information contained in this document represents components of the legal health record. It is not the complete legal health record.[facility]
[2024-11-11 06:50] LABS: MANUAL DIFF FLAG NO
[2024-11-11 07:41] LABS: Hematocrit 49.5 % (42.0-52.0); Hemoglobin 16.1 g/dl (14.0-18.0); Imm Gran Abs Auto 0.04 X10*3/uL (0.00-0.03); Imm Gran Pct Auto 0.4 % (0.0-0.4); Lymphocytes Absolute Auto 4.1 X10*3/uL (1.2-4.9); Mean Corpuscular HGB Conc 32.5 g/dl (31.0-36.0); Mean Corpuscular Hemoglobin 30.7 pg (27.0-33.0); Mean Corpuscular Volume 94.5 fL (80.0-98.0); NRBC Abs Auto 0.000 X10*3/uL (0.0-0.012); NRBC Pct Auto 0.0 /100WBC (0.0-0.2); Platelet Count 179 X10*3/uL (160-400); Red Blood Count 5.24 X10*6/uL (4.60-5.80); White Blood Count 9.6 X10*3/uL (4.8-10.8)
[2024-11-11 07:57] LABS: Hemoglobin A1C 174.0440 umol/L; Total Hemoglobin (HGBA1C) 4242.1377 umol/L
[2024-11-11 08:18] LABS: Alanine Aminotransferase 19 U/L (0-40); Albumin Level 4.6 g/dL (3.5-5.0); Alkaline Phosphatase 75 U/L (39-117); Anion Gap 13 (12-20); Aspartate Amino Transferase 30 U/L (5-37); Blood Urea Nitrogen 14 mg/dL (9-16); Calcium 9.5 mg/dL (8.4-10.2); Carbon Dioxide 29 mmol/L (22-29); Chloride 108 mmol/L (96-108); Cholesterol 186 mg/dL (<200); Estimated Glomerular Filt Rate > 60; HDL Cholesterol 43 mg/dL (>40); Potassium 5.0 mmol/L (3.3-5.1); Sodium 145 mmol/L (135-145); Total Protein 7.6 g/dL (6.5-8.0); Triglycerides 216 mg/dL (<150)
[2024-11-11 08:34] LABS: PSA,Total (Free>4and<10) 6.74 ng/mL (0.00-4.00)
[2024-11-11 08:45] LABS: Free T4 (Free Thyroxine) 0.88 ng/dL (0.71-1.85); Thyroid Stimulating Hormone 4.76 uIU/mL (0.32-4.0)
[2024-11-11 08:46] LABS: Folate 12.2 ng/mL (> or = 4.0); Vitamin B12 315 pg/mL (200-900)
[2024-11-12 12:39] LABS: Free Prostate Spec Ag 1.7 ng/mL; Percent Free Prostate Spec Ag 28 % (calc) (>25)
== END 2024-11-11 06:33 | disposition home or self-care (01) ==
LOC: HO.LAB 06:32
PROVIDERS: Absent Provider Urology; PCP Internal Medicine; Visit Provider Internal Medicine
DX: Z12.5 Encounter for screening for malignant neoplasm of prostate (principal); I82.432 Acute embolism and thrombosis of left popliteal vein; E78.00 Pure hypercholesterolemia, unspecified; R73.02 Impaired glucose tolerance (oral); R97.20 Elevated prostate specific antigen [PSA]
CPT/HCPCS: 36415; 80053; 80061; 82607; 82746; 83036; 84153; 84154; 84439; 84443; 85025

== ENCOUNTER 2024-11-13 12:32 | Outpatient (AMB) | payer MEDICARE, SELFPAY ==
[2024-11-13 12:42] VITALS: BP 106/68; PULSE 74; O2SAT 93; BMI 31.4
--- NOTE | 2024-11-13 12:42 | A.OFFPC_ITS ---
Vital Signs 11/13/24 12:42 Height 5 ft 11 in Weight 225 lb BMI 31.4 BP 106/68 Blood Pressure Location Lt brachial Position Sitting Pulse 74 Pulse Source Pulse Oximeter Pulse Oximetry (%) 93 Oxygen Delivery Method Nasal Cannula Intake Visit Reasons: waqar, Pulmonary fibrosis Allergies Penicillins (PENICILLINS) Allergy (Intermediate, Verified 11/13/24 12:43) ITCHING Medication List - Last Reconciled 11/13/24 by Corky Dawn MD acetaminophen (Tylenol) 650 mg PO Q6H PRN alprazolam 0.25 mg PO BID PRN 30 days daridorexant 25 mg PO BEDTIME magnesium amino acid chelate mg PO oxycodone 10 mg PO DAILY PRN oxygen-air delivery systems As directed rivaroxaban 20 mg PO DAILY sildenafil 100 mg PO ONCE PRN 30 days zolpidem ER (Ambien CR) 12.5 mg PO BEDTIME PRN 30 days Held on 11/13/24. Instructions: Doctor's Order Tobacco use date assessed: 04/17/24 Fall risk assessment: No Falls in past year Last assessed Fall Risk: 11/13/24 Dental Screening Dental Screen Date: 04/17/24 [facility] Medical History (Updated 11/13/24 @ 13:10 by Corky Dawn MD) Positive colorectal cancer screening using Cologuard test Colon cancer screening Anticoagulant long-term use Pneumothorax Osteopenia Right leg DVT Diverticular disease Obesity (BMI 30-39.9) COPD (chronic obstructive pulmonary disease) Anxiety and depression Pulmonary fibrosis Hypercholesterolemia Surgical History History of colonoscopy History of surgery History of surgery History of arthroscopy of right knee History of arthroscopy of left knee H/O rectal polypectomy History of tonsillectomy Family History Father Lung cancer Mother Breast cancer Paternal Grandmother Throat cancer Paternal Aunt Breast cancer Paternal Grandfather Myocardial infarction Social History Household Members: Spouse Housing: House Are you a primary transitional care nurse to a significant other at home: No Do you presently have visiting nurse or other home services: No Alcohol intake: former Patient Tobacco Use Status: Former Tobacco user Tobacco use type: Cigarette Years Smoked: quit 1989 e-Cigarette/Vaping Use: Never Used Second Hand Smoke Exposure: No service: No Current occupational status: disabled Current occupational exposures/hazards: No Cognitive needs: No Hearing needs: No Vision needs: Yes Questionnaire Thrive Questionnaire Date Thrive assessed: 07/24/24 I am a: Patient What is your living situation today?: I have a steady place to live Within the past 12 months, did the food you bought not last and you didn't have the money to get more?: I choose not to answer this question Within the past 12 months, did you worry whether your food would run out before you got money to buy more?: I choose not to answer this question Do you have trouble paying for medicines?: I choose not to answer this question Do you have trouble getting transportation to medical appointments?: I choose not to answer this question Do you have trouble paying your heating and electricity bill?: I choose not to answer this question Do you have trouble taking care of your child, family member or friend?: I choose not to answer this question Do you have trouble with day-to-day activities such as bathing, preparing meals, shopping, managing finances, etc.?: I choose not to answer this question Are you currently unemployed and looking for a job?: I choose not to answer this question Are you interested in more education?: I choose not to answer this question Currently or been in a relationship where the following occur: No concerns reported THRIVE Score: 0 AUDIT C Alcohol Use Questionnaire (AUDIT-C) 1. How often do you have a drink containing alcohol?: Never 2. How many drinks containing alcohol do you have on a typical day when you are drinking?: 1 or 2 (0) 3. How often do you have six or more drinks on one occasion?: Never Total Score: 0 WAQAR-7 AMB Questionnaire WAQRA-7 Date WAQAR - 7 assessed: 04/17/24 Source: Developed by Drs. Brent Catherine, Kate Scott, Get Salguero and colleagues, with an educational lalito from [employer]. Physical exam (Primary Care) Vital Signs: Last Vital Signs Pulse 74 11/13/24 12:42 BP 106/68 11/13/24 12:42 Pulse Ox 93 11/13/24 12:42 Oxygen Delivery Method Nasal Cannula 11/13/24 12:42 BMI result Body Mass Index 31.4 Tobacco/Smoking Status: Tobacco use Status Tobacco use date assessed 04/17/24 11/13/24 12:48 Patient Tobacco Use Status Former Tobacco user 11/13/24 12:48 Tobacco use type Cigarette 11/13/24 12:48 e-Cigarette/Vaping Use Never Used 11/13/24 12:48 Thrive Assessment: Date of Thrive Assessment Date Thrive assessed 07/24/24 11/13/24 12:48 Currently or been in a relationship where the following occur: No concerns reported Const General: alert; No acute distress Eyes Conjunctivae: conjunctivae normal Resp Auscultation: clear to auscultation bilaterally Cardio Rate: regular rate Rhythm: regular rhythm GI Inspection: Yes normal to inspection Extrem General: Yes normal to inspection and No edema Coding Level of Care Code Est Pt Level 4 (28816) Complex EM visit Add On G2211 Diagnoses Hypercholesterolemia E78.00 DVT of leg (deep venous thrombosis) I82.432 Affected thrombotic vein of extremity: popliteal Chronicity: acute Laterality: left Impaired glucose tolerance R73.02 Obesity (BMI 30-39.9) E66.9 PSA elevation R97.20 Pulmonary emphysema, unspecified emphysema type J43.9 COPD type: emphysema Emphysema type: unspecified TSH elevation R79.89 Pulmonary fibrosis J84.10 Assessment & Plan Assessment & Plan (1) Hypercholesterolemia: Code(s): E78.00 - Pure hypercholesterolemia, unspecified Category: Medical Plan: Avoid fried foods, chicken skin, eggs, butter margarine, pastries and meat. Be it pork or beef they have a lot of cholesterol LDL goal of less than 130 and triglyceride of less than 150 (2) DVT of leg (deep venous thrombosis): Comment: history of DVT in the right lower extremity in 2018 and then had a left lower extremity DVT July 2020 Code(s): I82.409 - Acute embolism and thrombosis of unspecified deep veins of unspecified lower extremity Category: Medical Qualifiers: Affected thrombotic vein of extremity: popliteal Chronicity: acute Laterality: left Qualified Code(s): I82.432 - Acute embolism and thrombosis of left popliteal vein Plan: Continue with anticoagulation and continue to follow-up with renal function (3) Impaired glucose tolerance: Code(s): R73.02 - Impaired glucose tolerance (oral) Category: Medical Plan: Decrease the amount of carbohydrate intake, pasta, bread, rice and potatoes are all sugar and that is aside from all the sweet stuff, remember that fruits are good but they are Sweet also. (4) Obesity (BMI 30-39.9): Code(s): E66.9 - Obesity, unspecified Category: Medical Plan: Diet and exercise (5) PSA elevation: Code(s): R97.20 - Elevated prostate specific antigen [PSA] Category: Medical Plan: Patient will be followed up by Urology (6) COPD (chronic obstructive pulmonary disease): Comment: mild Code(s): J44.9 - Chronic obstructive pulmonary disease, unspecified Category: Medical Qualifiers: COPD type: emphysema Emphysema type: unspecified Qualified Code(s): J43.9 - Emphysema, unspecified Plan: Continue to be on oxygen (7) TSH elevation: Code(s): R79.89 - Other specified abnormal findings of blood chemistry Category: Medical Plan: Repeat blood work (8) Pulmonary fibrosis: Code(s): J84.10 - Pulmonary fibrosis, unspecified Category: Medical Plan History of Present Illness The patient is a 69-year-old male presenting for a follow-up visit. The patient has a history of pulmonary fibrosis and Chronic Obstructive Pulmonary Disease (COPD), which have been managed with oxygen therapy. He continues to follow up with pulmonary specialists for these conditions. The patient has hypercholesterolemia, with recent lab results showing elevated triglycerides at 216 mg/dL and an LDL cholesterol level of 100 mg/dL. He has been advised to maintain an LDL goal of less than 130 mg/dL and triglycerides less than 150 mg/dL. The patient has impaired glucose tolerance, with a hemoglobin A1c of 5.9%. He has been counseled on dietary modifications to manage his blood sugar levels. The patient has a history of Deep Vein Thrombosis (DVT) from 2019 and is currently on anticoagulation therapy with Xarelto. The patient reports generalized anxiety disorder, which has been a concern for him. Recent lab results indicate an elevated Prostate-Specific Antigen (PSA) level of 6.18 ng/mL, and he is under urological care for this issue. The patient also has a mildly elevated Thyroid-Stimulating Hormone (TSH) level, which is being monitored. Health Maintenance - Follow-up with urology for elevated PSA - Repeat blood work in three months to monitor glucose and thyroid levels Social History - Nutritional intake: Consumes toast every morning, advised to reduce carbohydrate intake - Exercise: No specific exercise routine mentioned Review of Systems - Respiratory: Reports dyspnea, uses oxygen therapy - Endocrine: Reports difficulty maintaining sleep, possibly related to anxiety - Neurological: Reports feeling dizzy at times - Psychological: Reports anxiety and difficulty sleeping Physical Exam Results - Labs: Hemoglobin A1c at 5.9%, Triglycerides at 216 mg/dL, LDL at 100 mg/dL, PSA at 6.18 ng/mL, TSH mildly elevated Plan Patient was informed and verbally consented to the use of an ambient scribe for clinic note documentation during this visit. 1. Pulmonary Fibrosis The patient will continue oxygen therapy and follow up with pulmonary specialists to manage pulmonary fibrosis. 2. Chronic Obstructive Pulmonary Disease (Copd) The patient will continue to be monitored by pulmonary specialists and maintain oxygen therapy as needed. 3. Hypercholesterolemia The patient is advised to maintain an LDL goal of less than 130 mg/dL and triglycerides less than 150 mg/dL through dietary modifications and follow-up lab tests. 4. Impaired Glucose Tolerance The patient is advised to manage blood sugar levels through dietary modifications and will have repeat blood work in three months. 5. Deep Vein Thrombosis (Dvt) The patient will continue anticoagulation therapy with Xarelto to manage the history of DVT. 6. Generalized Anxiety Disorder The patient reports ongoing anxiety and difficulty sleeping, which will be monitored and managed as needed. 7. Elevated Prostate-Specific Antigen (Psa) The patient will follow up with urology to monitor the elevated PSA levels. 8. Mildly Elevated Thyroid-Stimulating Hormone (Tsh) The patient will have repeat blood work in three months to monitor TSH levels. Discussion Notes During the visit, I discussed with the patient the importance of managing his cholesterol and glucose levels through dietary modifications. We also talked about the need for follow-up with urology due to the elevated PSA levels and the plan to repeat blood work in three months to monitor glucose and thyroid levels. Patient Instructions - Continue oxygen therapy as prescribed. - Follow dietary recommendations to manage cholesterol and glucose levels. - Continue anticoagulation therapy with Xarelto. - Follow up with urology for elevated PSA levels. - Schedule repeat blood work in three months to monitor glucose and thyroid levels. Orders: Orders Thyroid Stimulating Hormone 3 Months R73.02 - Impaired glucose tolerance (oral) Free T4 (Free Thyroxine) 3 Months R73.02 - Impaired glucose tolerance (oral) Hemoglobin A1c 3 Months R73.02 - Impaired glucose tolerance (oral) Comprehensive Met. Panel 3 Months R73.02 - Impaired glucose tolerance (oral) Magnesium 3 Months R73.02 - Impaired glucose tolerance (oral) Medications: New daridorexant 25 mg PO BEDTIME 30 tabs 0RF R73.02 - Impaired glucose tolerance (oral) On Hold zolpidem ER (Miles WORKMAN) Hold Comment: Doctor's Order 12.5 mg PO BEDTIME 30 days PRN 20 tabs 2RF sleep G47.00 - Insomnia, unspecified
--- OUTSIDE RECORDS SUMMARY | 2024-11-13 12:53 | XMS_ITS | Clinical Summary ---
Author Organization [facility] Address [address] [place] [phone] Phone Care Team Providers Care Concrete Pointer Name Role Phone Corky Dawn MD Primary Care Provider [phone] Natalio Hahn MD Unavailable [phone] Justin Henning MD Unavailable [phone] Javon Griffin MD Unavailable [email or web address] [...] EDT) SODIUM 143 136 - 145 mmol/L [facility] POTASSIUM 3.9 3.4 - 5.1 mmol/L [facility] CHLORIDE 103 98 - 107 mmol/L [facility] CO2 29 22 - 31 mmol/L [facility] BUN 11 6 - 23 mg/dL [facility] CREATININE 1.05 0.50 - 1.20 mg/dL [facility] GLUCOSE 90 70 - 100 mg/dL [facility] ALBUMIN 4.8 3.5 - 5.2 g/dL [facility] TOTAL PROTEIN 7.8 6.4 - 8.3 g/dL [facility] CALCIUM 9.3 8.8 - 10.7 mg/dL [facility] ALKALINE PHOSPHATASE 87 35 - 130 U/L [facility] TOTAL BILIRUBIN 0.6 0.0 - 1.0 mg/dL [facility] AST 17 10 - 50 U/L [facility] ALT 11 10 - 50 U/L [facility] GLOBULIN 3.0 2.2 - 4.2 g/dL [facility] EGFR 76 >59 mL/min/1.7 3m2 [facility] Comment:Estimated glomerular filtration rate calculated using the CKD-EPI equation. ANION GAP 11 7 - 17 mmol/L [facility] 10/12/2020 12:5 8 PM EDT 10/12/2020 1:50 PM EDT us Haley Navarro NP LAB BLOOD ORDERABLES Final Res ult [facility] [address] [place] [id number] * Hepatitis C antibody, qualitative (10/12/2020 12:58 PM EDT) HCV Nonreactive Nonreactive [facility] 10/12/2020 12:5 8 PM EDT 10/12/2020 1:50 PM EDT Haley Navarro PRODUCTION SUPV LAB BLOOD ORDERABLES Final Res ult Performing Organization Address City/[facility]/ZIP Co de Phone Number [facility] [address] [place] [phone] * (ABNORMAL) Lipid panel (10/12/2020 12:58 PM EDT) CHOLESTEROL 183 <200 mg/dL [facility] TRIGLYCERIDES 192(H) 35 - 150 mg/dL [facility] HDL 52 40 - 80 mg/dL [facility] CALCULATED LDL 93 50 - 129 mg/dL [facility] VLDL 38 mg/dL [facility] CARDIAC RISK RATIO 3.5 0.0 - 4.0 [facility] 10/12/2020 12:5 8 PM EDT 10/12/2020 1:50 PM EDT Haley Navarro PRODUCTION SUPV LAB BLOOD ORDERABLES Final Res ult Performing Organization Address City/[facility] Co de Phone Number [facility] [address] [place] [phone] from Last 3 Months or Most Recently Relevant to Health Maintenance Insurance [place] [address] [place] [address] [place] [address] [place] [address] ACO ACO ACO ACO ACO [facility] ACO [facility] ACO Care Teams Concrete Pointer Relationship Specialty Start Date End Date López, Corky Frankel MD [address] [place] [address] [place] [id number] PCP - General Internal Medicine 09/13/20 Natalio Hahn MD [address] [place] [address] [address] [place] [address] Referring Physician Internal Medicine 09/14/20 Justin Henning MD [address] [place], [place] [address] [address] [place] [address] Referring Physician Pulmonary Disease 09/14/20 Javon Griffin MD [address] [place] [address] [email or web address] Referring Physician Pulmonary Disease 09/19/20 Anita Eldridge [address] [place] [id number] Referring Physician Hematology and Oncology 10/18/20 Additional Source Comments The information contained in this document represents components of the legal health record. It is not the complete legal health record.[facility]
== END 2024-11-13 13:30 | disposition home or self-care (01) ==
LOC: HO.HMCH 12:32
PROVIDERS: PCP Internal Medicine; Visit Provider Internal Medicine
DX: I82.432 Acute embolism and thrombosis of left popliteal vein (principal); J43.9 Emphysema, unspecified; J84.10 Pulmonary fibrosis, unspecified; E66.9 Obesity, unspecified; Z68.31 Body mass index [BMI] 31.0-31.9, adult; E78.00 Pure hypercholesterolemia, unspecified; R73.02 Impaired glucose tolerance (oral); R97.20 Elevated prostate specific antigen [PSA]; R79.89 Other specified abnormal findings of blood chemistry

== ENCOUNTER → 2024-11-13 12:32 | Outpatient (BNVA) | payer MEDICARE, SELFPAY | PROVIDERS: PCP Internal Medicine; Visit Provider Internal Medicine | DX: I82.432 Acute embolism and thrombosis of left popliteal vein (principal); E78.00 Pure hypercholesterolemia, unspecified; R73.02 Impaired glucose tolerance (oral); E66.9 Obesity, unspecified; R97.20 Elevated prostate specific antigen [PSA]; J43.9 Emphysema, unspecified; R79.89 Other specified abnormal findings of blood chemistry; J84.10 Pulmonary fibrosis, unspecified; F41.1 Generalized anxiety disorder; Z79.01 Long term (current) use of anticoagulants | CPT/HCPCS: 99212 ==

== ENCOUNTER → 2024-12-07 23:59 | Outpatient (BNV) | payer MEDICARE, SELFPAY | PROVIDERS: PCP Internal Medicine; Visit Provider Internal Medicine | DX: K57.20 Diverticulitis of large intestine with perforation and abscess without bleeding (principal); J44.9 Chronic obstructive pulmonary disease, unspecified; J84.9 Interstitial pulmonary disease, unspecified | CPT/HCPCS: G0180 ==

== ENCOUNTER 2025-01-05 09:32 | Outpatient (AMB) | payer MEDICARE, SELFPAY ==
--- NOTE | 2025-01-05 09:35 | A.OFFVIS_ITS ---
Intake Visit Reasons: follow up/PSA/PVR Intake Note: Patient is present for follow up Urology Medication:SILDENAFIL Antibiotic Allergy:PENICILLINS Blood Thinner:NONE Labs done 11/11/24 : PSA Total 6.74 Director Of Exhibit Development Required: No Accompanied by: Self / Same As Patient Allergies Penicillins (PENICILLINS) Allergy (Intermediate, Verified 01/05/25 09:36) ITCHING HPI Comments Details: Aric is a pleasant male. He is a patient of Dr. Dawn. He is here for the following urologic condition - elevated PSA - erectile dysfunction Six-month follow-up PSA remains stable Did want refill on betamethasone for intermittent balanitis Follow-up in 12 month Erectile dysfunction Can obtain but not maintain erection Trial sildenafil 100 mg Elevated PSA Background of interstitial pulmonary fibrosis Multiple exposures Minimal issues with urinary parameters Good stream and effective emptying PSA - 08/29 4.7 21%, 02/28 2.1, 06/30 2.5, 01/30 1.6 on finasteride, 05/31 3.7, 12/02 5.3, 05/05 5.4 30%, 12/03 6.0 28% PFS Medical History (Updated 12/21/24 @ 18:38 by Corky Dawn MD) Positive colorectal cancer screening using Cologuard test Colon cancer screening Anticoagulant long-term use Pneumothorax Osteopenia Right leg DVT Diverticular disease Obesity (BMI 30-39.9) COPD (chronic obstructive pulmonary disease) Anxiety and depression Pulmonary fibrosis Hypercholesterolemia Surgical History History of colonoscopy History of surgery History of surgery History of arthroscopy of right knee History of arthroscopy of left knee H/O rectal polypectomy History of tonsillectomy Family History Father Lung cancer Mother Breast cancer Paternal Grandmother Throat cancer Paternal Aunt Breast cancer Paternal Grandfather Myocardial infarction Social History Household Members: Spouse Housing: House Are you a primary client care manager to a significant other at home: No Do you presently have visiting nurse or other home services: No Alcohol intake: former Patient Tobacco Use Status: Former Tobacco user Tobacco use type: Cigarette Years Smoked: quit 1989 e-Cigarette/Vaping Use: Never Used Second Hand Smoke Exposure: No service: No Current occupational status: disabled Current occupational exposures/hazards: No Cognitive needs: No Hearing needs: No Vision needs: Yes Review of Systems Const Denies chills and Denies fever(s) Card Reports no additional complaints and Denies syncope Resp Denies cough GI Denies abdominal pain and Denies heartburn Reports as per HPI and Denies change in libido Neuro Denies syncope Psych Denies change in libido Endo Denies change in libido Physical Exam Const General: cooperative, healthy appearing, comfortable and no acute distress Orientation/consciousness: patient oriented x3 HEENT Face and sinus: Yes normal facial exam Mouth: moist mucous membranes Neck Neck: Yes normal visual inspection, Yes full ROM and Yes trachea midline Chest Chest palpation & inspection: normal inspection of the chest Resp Effort & Inspection: normal respiratory effort, able to speak in complete sentences and no respiratory distress GI Inspection: Yes normal to inspection Back/Spine/Pelvis Cervical Spine: normal cervical lordosis Thoracic/Lumbar Spine: thoracic and lumbar spine normal to inspection Skin General skin exam: no rashes or lesions noted Neuro General: patient oriented x3, gait normal, tone normal and moves all extremities Extrem General: Yes normal to inspection and Yes capillary refill normal Assessment & Plan Assessment & Plan (1) Balanitis: Code(s): N48.1 - Balanitis Category: Medical (2) PSA elevation: Code(s): R97.20 - Elevated prostate specific antigen [PSA] Category: Medical Plan Twelve month follow-up he is Orders: Orders Prostate Specific Antigen 12 Months R97.20 - Elevated prostate specific antigen [PSA] Medications: Refilled betamethasone dipropionate 0.05% Thin coat 2 times per day 1 appl topical BID 15 grams 0RF N48.1 - Balanitis, Q55.69 - Other congenital malformation of penis Patient Instructions: This note is constructed using voice recognition software. While every effort has been made to ensure accuracy gauntlet pairer errors may have been included. Imaging studies, laboratory and physical exam results were discussed and reviewed in detail. No major barriers to patient understanding were identified. An opportunity to ask questions regarding the treatment plan was provided. All questions were answered. The patient expressed understanding and agreement with the above treatment plan. The patient is aware they should contact our office by phone for worsening of t heir current condition or the appearance of new urologic symptoms. Compliance is encouraged with any medications and followup testing that is ordered. It is a privilege to participate in the urologic care of your patient. If you have any questions or concerns regarding treatment for the above conditions, or other urologic issues, please do not hesitate to contact me. The office telephone contact is [phone]. Sincerely, Dr Se Jefferson MD, [facility] - Urology Compassionate Specialist Care for the Genitourinary System Coding Level of Care Code Est Pt Level 4 (33389) Diagnoses Balanitis N48.1 PSA elevation R97.20
--- OUTSIDE RECORDS SUMMARY | 2025-01-05 10:58 | XMS_ITS | Clinical Summary ---
Author Organization [facility] Address [address] [facility] [address] [place] [address] Phone Care Team Providers Care Berry Picker Name Role Phone Corky Dawn MD Primary Care Provider [phone] Natalio Hahn MD Unavailable [phone] Justin Henning MD Unavailable [phone] Javon Griffin MD Unavailable [email or web address] [...] FOBT 2002 SIGMOIDOSCOPY 2002 VIRTUAL COLONOSCOPY 2002 RSV VACCINE (1 - Risk 50-74 years 1-dose series) 11/05/2007 ZOSTER VACCINES (1 of 2) 11/05/2007 PNEUMOCOCCAL VACCINES (50+ years) (2 of 2 [...] EDT) SODIUM 143 136 - 145 mmol/L [facility] POTASSIUM 3.9 3.4 - 5.1 mmol/L [facility] CHLORIDE 103 98 - 107 mmol/L [facility] CO2 29 22 - 31 mmol/L [facility] BUN 11 6 - 23 mg/dL [facility] CREATININE 1.05 0.50 - 1.20 mg/dL [facility] GLUCOSE 90 70 - 100 mg/dL [facility] ALBUMIN 4.8 3.5 - 5.2 g/dL [facility] TOTAL PROTEIN 7.8 6.4 - 8.3 g/dL [facility] CALCIUM 9.3 8.8 - 10.7 mg/dL [facility] ALKALINE PHOSPHATASE 87 35 - 130 U/L [facility] TOTAL BILIRUBIN 0.6 0.0 - 1.0 mg/dL [facility] AST 17 10 - 50 U/L [facility] ALT 11 10 - 50 U/L [facility] GLOBULIN 3.0 2.2 - 4.2 g/dL [facility] EGFR 76 >59 mL/min/1.7 3m2 [facility] Comment:Estimated glomerular filtration rate calculated using the CKD-EPI equation. ANION GAP 11 7 - 17 mmol/L [facility] 10/12/2020 12:5 8 PM EDT 10/12/2020 1:50 PM EDT us Haley Navarro NP LAB BLOOD ORDERABLES Final Res ult [facility] [address] [place] [phone] * Hepatitis C antibody, qualitative (10/12/2020 12:58 PM EDT) HCV Nonreactive Nonreactive [facility] 10/12/2020 12:5 8 PM EDT 10/12/2020 1:50 PM EDT Haley Navarro TOLL BOOTH OPERATOR LAB BLOOD ORDERABLES Final Res ult Performing Organization Address City/[facility]/ZIP Co de Phone Number [facility] [address] [place] [phone] * (ABNORMAL) Lipid panel (10/12/2020 12:58 PM EDT) CHOLESTEROL 183 <200 mg/dL [facility] TRIGLYCERIDES 192(H) 35 - 150 mg/dL [facility] HDL 52 40 - 80 mg/dL [facility] CALCULATED LDL 93 50 - 129 mg/dL [facility] VLDL 38 mg/dL [facility] CARDIAC RISK RATIO 3.5 0.0 - 4.0 [facility] 10/12/2020 12:5 8 PM EDT 10/12/2020 1:50 PM EDT Haley Navarro TOLL BOOTH OPERATOR LAB BLOOD ORDERABLES Final Res ult Performing Organization Address City/[facility] [email or web address]] Co de Phone Number [facility] [address] [place] [phone] from Last 3 Months or Most Recently Relevant to Health Maintenance [place] [address] [place] [address] [place] [address] [place] [address] ACO ACO ACO ACO ACO [facility] ACO [facility] ACO Care Teams Berry Picker Relationship Specialty Start Date End Date López, Corky Frankel MD [address] [place] [address] [place] [phone] PCP - General Internal Medicine 09/13/20 Natalio Hahn MD [address] [place] [address] [address] [place] [address] Referring Physician Internal Medicine 09/14/20 Justin Henning MD [address] [place], [place] [address] [place] [address] Referring Physician Pulmonary Disease 09/14/20 Javon Griffin MD [address] [place] [address] [email or web address] Referring Physician Pulmonary Disease 09/19/20 Anita Eldridge [address] [place] [address] Referring Physician Hematology and Oncology 10/18/20 Additional Source Comments The information contained in this document represents components of the legal health record. It is not the complete legal health record.[facility]
== END 2025-01-05 10:56 | disposition home or self-care (01) ==
LOC: HO.HUSH 09:33
PROVIDERS: PCP Internal Medicine; Visit Provider Urology
DX: N48.1 Balanitis (principal); R97.20 Elevated prostate specific antigen [PSA]
CPT/HCPCS: 99214

== ENCOUNTER → 2025-01-05 09:32 | Outpatient (BNVA) | payer MEDICARE, SELFPAY | PROVIDERS: PCP Internal Medicine; Visit Provider Urology | DX: N48.1 Balanitis (principal); R97.20 Elevated prostate specific antigen [PSA] | CPT/HCPCS: 99212 ==

== ENCOUNTER 2025-02-20 06:58 | Outpatient (REF) | payer MEDICARE, SELFPAY ==
--- OUTSIDE RECORDS SUMMARY | 2025-02-20 07:00 | XMS_ITS | Clinical Summary ---
Author Organization [facility] Address [address] [facility] [address] [place] [address] Phone Care Team Providers Care Weapons Officer Name Role Phone Corky Dawn MD Primary Care Provider [phone] Natalio Hahn MD Unavailable [phone] Justin Henning MD Unavailable [phone] Javon Griffin MD Unavailable [email or web address] [...] Anxiety Allergic rhinitis IPF (idiopathic pulmonary fibrosis) LAVINO (obstructive sleep apnea) Immunizations Immunization Administration Dates [...] (AAA) SCREENING 2022 INFLUENZA VACCINE (#1) 2024 12/20/2018, 2016 COVID-19 VACCINE ( - season) 2024 07/11/2020, 06/19/2020 LIPID PANEL 10/12/2025 10/12/2020 Adult Td,Tdap Booster 07/11/2026 07/11/2016 HEPATITIS C SCREENING Completed 10/12/2020 , 10/12/2020, 10/12/2020, Additional history exists HEPATITIS A VACCINES Aged Out No long [...] hepatitis C screening test COMPREHENSIVE METABOLIC PANEL (CMP) Routine 10/12/2020 12:58 PM EDT Encounter for pre-transplant evaluation for lung transplant from Last 3 Months or Most Recently Relevant to Health Maintenance Results * Comprehensive metabolic panel (10/12/2020 12:58 PM EDT) SODIUM 143 136 - 145 mmol/L [facility] POTASSIUM 3.9 3.4 - 5.1 mmol/L [facility] CHLORIDE 103 98 - 107 mmol/L [facility] CO2 29 22 - 31 mmol/L [facility] BUN 11 6 - 23 mg/dL [facility] CREATININE 1.05 0.50 - 1.20 mg/dL [facility] GLUCOSE 90 70 - 100 mg/dL [facility] ALBUMIN 4.8 3.5 - 5.2 g/dL [facility] TOTAL PROTEIN 7.8 6.4 - 8.3 g/dL [facility] CALCIUM 9.3 8.8 - 10.7 mg/dL [facility] ALKALINE PHOSPHATASE 87 35 - 130 U/L [facility] TOTAL BILIRUBIN 0.6 0.0 - 1.0 mg/dL [facility] AST 17 10 - 50 U/L [facility] ALT 11 10 - 50 U/L [facility] GLOBULIN 3.0 2.2 - 4.2 g/dL [facility] EGFR 76 >59 mL/min/1.7 3m2 [facility] Comment:Estimated glomerular filtration rate calculated using the CKD-EPI equation. ANION GAP 11 7 - 17 mmol/L [facility] 10/12/2020 12:5 8 PM EDT 10/12/2020 1:50 PM EDT us Haley Navarro NP LAB BLOOD BKR ORDERABLES Final Result [facility] [address] [place] [phone] * Hepatitis C antibody, qualitative (10/12/2020 12:58 PM EDT) HCV Nonreactive Nonreactive [facility] 10/12/2020 12:5 8 PM EDT 10/12/2020 1:50 PM EDT Haley Navarro COUPLER LAB BLOOD BKR ORDERABLES Final Result Performing Organization Address City/[facility] Co de Phone Number [facility] [address] [place] [address] * (ABNORMAL) Lipid panel (10/12/2020 12:58 PM EDT) CHOLESTEROL 183 <200 mg/dL [facility] TRIGLYCERIDES 192(H) 35 - 150 mg/dL [facility] HDL 52 40 - 80 mg/dL [facility] CALCULATED LDL 93 50 - 129 mg/dL [facility] VLDL 38 mg/dL [facility] CARDIAC RISK RATIO 3.5 0.0 - 4.0 [facility] 10/12/2020 12:5 8 PM EDT 10/12/2020 1:50 PM EDT Haley Navarro COUPLER LAB BLOOD BKR ORDERABLES Final Result Performing Organization Address City/[facility] Co de Phone Number [facility] [address] [place] [phone] from Last 3 Months or Most Recently Relevant to Health Maintenance Insurance [facility] ACO Member Subscriber Plan / Payer (Ef fective 2020-Present) Name:Aric Wheat Relation to Subscriber:Self Name:Aric Wheat Payer ID:[id number] Group ID:[id number] Type:Medicaid Address: [address] [place]CO [place] [address] [place] [address] ACO ACO ACO [facility] ACO [facility] ACO Care Teams Weapons Officer Relationship Specialty Start Date End Date Corky Dawn MD [address] [place] [address] Drive [address] [place] [phone] PCP - General Internal Medicine 09/13/20 Natalio Hahn MD [address] [place] [address] [address] [place] [address] Referring Physician Internal Medicine 09/14/20 Justin Henning MD [address] [place] [address] [place] [address] Referring Physician Pulmonary Disease 09/14/20 Javon Griffin MD [address] [place] [address] [email or web address] Referring Physician Pulmonary Disease 09/19/20 Anita Eldridge [address] [place] [address] Referring Physician Hematology and Oncology 10/18/20 Additional Source Comments The information contained in this document represents components of the legal health record. It is not the complete legal health record.[facility]
[2025-02-20 08:16] LABS: Alanine Aminotransferase 18 U/L (0-40); Albumin Level 4.6 g/dL (3.5-5.0); Alkaline Phosphatase 77 U/L (39-117); Anion Gap 11 (12-20); Aspartate Amino Transferase 24 U/L (5-37); Blood Urea Nitrogen 15 mg/dL (9-16); Calcium 9.2 mg/dL (8.4-10.2); Carbon Dioxide 29 mmol/L (22-29); Chloride 106 mmol/L (96-108); Estimated Glomerular Filt Rate > 60; Magnesium 2.4 mg/dL (1.6-2.6); Potassium 4.3 mmol/L (3.3-5.1); Sodium 142 mmol/L (135-145); Total Protein 7.3 g/dL (6.5-8.0)
[2025-02-20 08:32] LABS: Free T4 (Free Thyroxine) 0.90 ng/dL (0.71-1.85); Thyroid Stimulating Hormone 4.76 uIU/mL (0.32-4.0)
== END 2025-02-20 06:59 | disposition home or self-care (01) ==
LOC: HO.LAB 06:58
PROVIDERS: PCP Internal Medicine; Visit Provider Internal Medicine
DX: R73.02 Impaired glucose tolerance (oral) (principal); Z13.29 Encounter for screening for other suspected endocrine disorder
CPT/HCPCS: 36415; 80053; 83036; 83735; 84439; 84443

== ENCOUNTER 2025-03-05 04:26 | Emergency (ER) | payer MEDICARE, SELFPAY ==
--- NOTE | 2025-03-05 | ECG_ITS ---
Test Reason : SOB Blood Pressure : */* mmHG Vent. Rate : 108 BPM Atrial Rate : 108 BPM P-R Int : 186 ms QRS Dur : 100 ms QT Int : 320 ms P-R-T Axes : 41 37 8 degrees QTcB Int : 428 ms Sinus tachycardia Possible Anterolateral infarct , age undetermined Abnormal ECG When compared with ECG of 24-Sep-2019 04:51, Premature supraventricular complexes are no longer Present Borderline criteria for Anterior infarct are now Present Borderline criteria for Anterolateral infarct are now Present T wave inversion now evident in Inferior leads Referred By: Generic ED Physician Electronically Signed By: TEJINDER LEES MD
--- NOTE | ~2025-03-05 | XR_ITS ---
CLINICAL HISTORY: SOB 1 view chest x-ray Comparison: None provided Findings: No dense consolidation. Prominence of the interstitium bilaterally. No effusion or pneumothorax. Heart size is normal. No acute fracture. IMPRESSION: 1. Prominence of the interstitium bilaterally suspicious for fibrosis. Consider CT chest. This document has been electronically signed by: Analia Matthews MD on 03/05/2025 05:46:22
[2025-03-05 04:42] VITALS: BP 123/77; BP 140/90; PULSE 109; PULSE 115; RESP 28; TEMP 36.6; O2SAT 92; O2SAT 99; BMI 32.8
[2025-03-05 04:56] VITALS: BP 123/75; PULSE 108; RESP 28; TEMP 36.6; O2SAT 94
--- NOTE | 2025-03-05 05:02 | PC.NURSE ---
20 g IV placed in right AC
--- NOTE | 2025-03-05 05:05 | PC.NURSE ---
Pt BIBA from home after sliding out of bed this morning. Pt was attempting to get up but felt so weak he lowered himself to the floor. Pt did not feel dizzy or pass out. Pt has been feeling unwell with a productive cough for approx 1 week. Pt is on 3 L O2 at baseline, hx pulmonary fibrosis. Denies any sick contacts. Has an appt with his iron melter this week.
[2025-03-05 05:10] LABS: Hematocrit 48.5 % (42.0-52.0); Hemoglobin 16.0 g/dl (14.0-18.0); Mean Corpuscular HGB Conc 33.0 g/dl (31.0-36.0); Mean Corpuscular Hemoglobin 31.0 pg (27.0-33.0); Mean Corpuscular Volume 94.0 fL (80.0-98.0); NRBC Abs Auto 0.000 X10*3/uL (0.0-0.012); NRBC Pct Auto 0.0 /100WBC (0.0-0.2); Platelet Count 167 X10*3/uL (160-400); Red Blood Count 5.16 X10*6/uL (4.60-5.80); White Blood Count 16.3 X10*3/uL (4.8-10.8)
[2025-03-05 05:23] LABS: Alanine Aminotransferase 26 U/L (0-40); Albumin Level 4.3 g/dL (3.5-5.0); Alkaline Phosphatase 123 U/L (39-117); Anion Gap 14 (12-20); Aspartate Amino Transferase 28 U/L (5-37); Blood Urea Nitrogen 14 mg/dL (9-16); Calcium 9.6 mg/dL (8.4-10.2); Carbon Dioxide 25 mmol/L (22-29); Chloride 105 mmol/L (96-108); Creatinine Clr Calc Pharmacy 75.4; Estimated Glomerular Filt Rate > 60; Magnesium 2.2 mg/dL (1.6-2.6); Potassium 4.4 mmol/L (3.3-5.1); Sodium 140 mmol/L (135-145); Total Protein 7.5 g/dL (6.5-8.0)
[2025-03-05 05:29] LABS: Troponin-I High Sensitivity < 2.7 ng/L (<3.5-35.0)
[2025-03-05 05:44] LABS: Resp Syncy Virus RNA Qual PCR NEGATIVE (Negative); SARS COV2 PCR INHOUSE NEGATIVE (Negative)
[2025-03-05 05:45] LABS: Band Neutrophils Percent 7 % (3-5); Lymphocytes Absolute Manual 2.3 X10*3/uL (1.2-4.9); Lymphocytes Percent Manual 14 % (20-40); Monocytes Absolute Manual 1.1 X10*3/uL (0.1-1.2); Monocytes Percent Manual 7 % (2-11); Neutrophils Absolute Manual 12.9 X10*3/uL (2.0-8.3); Neutrophils Percent Manual 72 % (45-73); RBC Morphology NORMAL; Toxic Vacuolation PRESENT
--- OUTSIDE RECORDS SUMMARY | 2025-03-05 05:55 | XMS_ITS | Clinical Summary ---
Author Organization [facility] Address [address] [facility] [address] [place] [address] Phone Care Team Providers Care Collar Closer Lockstitch Name Role Phone Corky Dawn MD Primary Care Provider Natalio Hahn MD Unavailable [phone] Justin Henning MD Unavailable [phone] Javon Griffin MD Unavailable [email or web address] [...] EDT) SODIUM 143 136 - 145 mmol/L [facility] POTASSIUM 3.9 3.4 - 5.1 mmol/L [facility] CHLORIDE 103 98 - 107 mmol/L [facility] CO2 29 22 - 31 mmol/L [facility] BUN 11 6 - 23 mg/dL [facility] CREATININE 1.05 0.50 - 1.20 mg/dL [facility] GLUCOSE 90 70 - 100 mg/dL [facility] ALBUMIN 4.8 3.5 - 5.2 g/dL [facility] TOTAL PROTEIN 7.8 6.4 - 8.3 g/dL [facility] CALCIUM 9.3 8.8 - 10.7 mg/dL [facility] ALKALINE PHOSPHATASE 87 35 - 130 U/L [facility] TOTAL BILIRUBIN 0.6 0.0 - 1.0 mg/dL [facility] AST 17 10 - 50 U/L [facility] ALT 11 10 - 50 U/L [facility] GLOBULIN 3.0 2.2 - 4.2 g/dL [facility] EGFR 76 >59 mL/min/1.7 3m2 [facility] Comment:Estimated glomerular filtration rate calculated using the CKD-EPI equation. ANION GAP 11 7 - 17 mmol/L [facility] 10/12/2020 12:5 8 PM EDT 10/12/2020 1:50 PM EDT us Haley Navarro NP LAB BLOOD BKR ORDERABLES Final Result [facility] [address] [place] [address] * Hepatitis C antibody, qualitative (10/12/2020 12:58 PM EDT) HCV Nonreactive Nonreactive [facility] 10/12/2020 12:5 8 PM EDT 10/12/2020 1:50 PM EDT Haley Navarro AIRPORT ELECTRICIAN LAB BLOOD BKR ORDERABLES Final Result Performing Organization Address City/[facility] Co de Phone Number [facility] [address] [place] [address] * (ABNORMAL) Lipid panel (10/12/2020 12:58 PM EDT) CHOLESTEROL 183 <200 mg/dL [facility] TRIGLYCERIDES 192(H) 35 - 150 mg/dL [facility] HDL 52 40 - 80 mg/dL [facility] CALCULATED LDL 93 50 - 129 mg/dL [facility] VLDL 38 mg/dL [facility] CARDIAC RISK RATIO 3.5 0.0 - 4.0 [facility] 10/12/2020 12:5 8 PM EDT 10/12/2020 1:50 PM EDT Haley Navarro AIRPORT ELECTRICIAN LAB BLOOD BKR ORDERABLES Final Result Performing Organization Address City/[facility] Co de Phone Number [facility] [address] [place] [phone] from Last 3 Months or Most Recently Relevant to Health Maintenance Insurance [facility] ACO Member Subscriber Plan / Payer (Ef fective 2020-Present) Name:Aric Wheat Relation to Subscriber:Self Name:Aric Wheat Payer ID:[id number] Group ID:[id number] Type:Medicaid Address: [address] [place] [address] ACO [place] [address] [address] ACO ACO ACO [facility] ACO [facility] ACO Care Teams Collar Closer Lockstitch Relationship Specialty Start Date End Date Corky Dawn MD [address] [place] [address] [address] [place] [phone] PCP - General Internal Medicine 09/13/20 Natalio Hahn MD [address] [place] [address] [address] [place] [address] Referring Physician Internal Medicine 09/14/20 Justin Henning MD [address] [place] [address] [place] [address] Referring Physician Pulmonary Disease 09/14/20 Javon Griffin MD [address] [place] [address] [email or web address] Referring Physician Pulmonary Disease 09/19/20 Anita Eldridge [address] [place] [address] Referring Physician Hematology and Oncology 10/18/20 Additional Source Comments The information contained in this document represents components of the legal health record. It is not the complete legal health record.[facility]
[2025-03-05 06:06] VITALS: BP 114/71; PULSE 104; RESP 26; O2SAT 97
[2025-03-05 07:23] VITALS: PULSE 100; RESP 22; O2SAT 92
[2025-03-05] MEDS: Albuterol Sulfate 5 MG, Albuterol/Iprat 2.5/0.5MG 3 ML 3 ML INHALE (07:23)
--- NOTE | 2025-03-05 07:28 | ED.SOB ---
HPI - SOB/Dyspnea General Chief Complaint: Dyspnea Stated Complaint: fall/SOB Time Seen by Provider: 03/05/25 06:11 Source: patient and EMS Mode of arrival: EMS Limitations: no limitations History of Present Illness ED Provider: HPI Narrative: The patient with known idiopathic pulmonary fibrosis (IPF) on 3 L home oxygen presents stating he is ?doing better? but feels ?a little shakier.? He developed a ?real bad headache? lasting two days, followed by increased cough described as progressing toward pneumonia if untreated. . He typically takes a Z-Javan and prednisone when respiratory symptoms worsen and requests similar treatment today. His noted frequent nocturnal coughing on Saturday night. Past intervention for a ruptured colon abscess/cyst occurred in early November via tube placement (interventional procedure, not open surgery). No other issues from that. Denies new medical problems. Patient reports taking Xarelto 20 mg daily. Potential sick contact at home from grandchildren Related Data Home Medications ?Medication ?Instructions ?Recorded ?Confirmed oxygen-air delivery systems ##1 05/17/20 02/22/25 Previous Rx's ?Medication ?Instructions ?Recorded sildenafil 100 mg tablet 100 mg PO ONCE PRN sexual activity 02/14/24 30 days #30 tabs alprazolam 0.25 mg tablet 0.25 mg PO BID PRN anxiety 30 days 01/28/25 #60 tabs zolpidem 12.5 mg tablet,extended 12.5 mg PO BEDTIME PRN sleep 30 01/31/25 release,multiphase (Ambien CR) days #20 tabs oxycodone 10 mg tablet 10 mg PO DAILY PRN pain #15 tabs 02/17/25 azithromycin 250 mg tablet 250 mg PO DAILY 5 days #5 tabs 03/05/25 oxycodone 5 mg tablet 5 mg PO Q6H PRN pain #10 tabs 03/05/25 prednisone 20 mg tablet 40 mg (2 x 20 mg) PO DAILY 5 days 03/05/25 #10 tabs Allergies Allergy/AdvReac Type Severity Reaction Status Date / Time Penicillins (PENICILLINS) Allergy Intermediate ITCHING Verified 03/05/25 04:51 Review of Systems Constitutional: Constitutional: Reports as per [facility] Past Medical History Medical History (Updated 03/05/25 @ 07:38 by Kin Raymond DO) Positive colorectal cancer screening using Cologuard test Colon cancer screening Anticoagulant long-term use Pneumothorax Osteopenia Right leg DVT Diverticular disease Obesity (BMI 30-39.9) COPD (chronic obstructive pulmonary disease) Anxiety and depression Pulmonary fibrosis Hypercholesterolemia Surgical History History of colonoscopy History of surgery History of surgery History of arthroscopy of right knee History of arthroscopy of left knee H/O rectal polypectomy History of tonsillectomy Family History Family History Father Lung cancer Mother Breast cancer Paternal Grandmother Throat cancer Paternal Aunt Breast cancer Paternal Grandfather Myocardial infarction Social History Social History Household Members: Spouse Housing: House Are you a primary hearing care practitioner to a significant other at home: No Do you presently have visiting nurse or other home services: No Alcohol intake: former Patient Tobacco Use Status: Former Tobacco user Tobacco use type: Cigarette Years Smoked: 1989 e-Cigarette/Vaping Use: Never Used Second Hand Smoke Exposure: No Advance Directives: Yes Advance Directives Information Provided: Yes Advance Directives on File: No service: No Current occupational status: disabled Current occupational exposures/hazards: No Cognitive needs: No Hearing needs: No Vision needs: Yes Physical Exam Exam: Exam: ?General: ??looks age appropriate, utilizing oxygen ?CV: RRR, no obvious murmurs appreciated ?Resp: ?Expiratory wheezing throughout some more rhonchorous breath sounds left lower lobe Abd: ?Bowel sounds are present, no tenderness no rebound no rigidity MSK: FROM, strength 5/5 all extremities, no lower extremity edema Skin: Warm, dry, intact, ?Neuro: ?Alert and oriented x3, moving upper and lower extremities symmetrically, no obvious facial asymmetry noted, cranial nerves 2-12 intact Vital Signs: Vital Signs: Last Vital Signs Temp 97.8 F 03/05/25 04:56 Pulse 100 03/05/25 07:23 Resp 22 H 03/05/25 07:23 BP 114/71 03/05/25 06:06 Pulse Ox 97 03/05/25 06:06 O2 Del Method Nasal Cannula 03/05/25 06:06 O2 Flow Rate 4 12/26/25 06:06 Oxygen Flow Rate 4 03/05/25 04:42 BMI result Body Mass Index 32.8 Medications Administered Discontinued Medications Generic Name Dose Route Start Last Admin Trade Name Valentín PRN Reason Stop Dose Admin Azithromycin 500 mg 03/05/25 06:59 03/05/25 07:12 Azithromycin 500 Mg Tablet PO 03/05/25 07:00 500 mg ONCE ONE Administration Albuterol Sulfate 5 mg/ 0 mg 03/05/25 07:18 03/05/25 07:23 Albuterol/Ipratropium 3 ml INHALE 03/05/25 07:19 7.5 each ONCE ONE Administration Methylprednisolone Sodium Succinate 60 mg 03/05/25 06:59 03/05/25 07:12 Methylprednisolone Sod Succ 125 Mg/2 Ml Vial IVPUSH 03/05/25 07:00 60 mg ONCE ONE Administration Medical Decision Making Medical Decision Making MDM Narrative: 7:31 AM 03/05/2025 (Dr. Kin Raymond): Patient does have rhonchorous breath sounds throughout, patient should have pulmonary fibrosis and he reports to be more or less at his baseline, I do not think it is unreasonable to start him on azithromycin in the setting of sick contacts and his significant pulmonary disease, and I will start him on steroids he has follow up with his chair pad maker coming up, he also requested some refill of his pain medications to help him with cough which I will provide, I was less worried about PE as he is on Xarelto and no PE risk factors elicited, he had an interventional procedure done but that was over 6 weeks ago. 8:17 AM 03/05/2025 (Dr. Kin Raymond): Wheezing has resolved, patient feels much better, is at bedside he is very comfortable with the discharge Differential Diagnosis Differential Diagnoses: The differential diagnosis associated with the presentation includes (See below) Differential Diagnosis for Acute Respiratory Symptoms and Headache in Chronic IPF 1. Infectious etiologies (community-acquired pneumonia, viral respiratory infection, bronchitis): Justified by acute onset of cough, nocturnal symptoms, and patient's concern for pneumonia. Recent exposure to children with mild illness increases risk. Coarse breath sounds and history of prior pneumonia episodes further support consideration. Negative home COVID test does not exclude other pathogens. 2. IPF exacerbation: Patient has chronic IPF and is experiencing increased respiratory symptoms. Exacerbations can present with worsening cough and dyspnea, and may be triggered by infection or other insults. 3. Medication side effects: Patient is on Xarelto and intermittently uses azithromycin and prednisone during flares. Headache and other symptoms could be related to medication adverse effects, though less likely given the acute respiratory findings. 4. Pulmonary embolism: Patient is on anticoagulation (Xarelto), which reduces but does not eliminate risk. Acute respiratory symptoms and headache could be consistent with PE, but absence of hemoptysis, severe hypoxia, or new chest pain makes this less likely. 5. Other causes (heart failure, non-pulmonary sources of headache): Chronic chest pain and history of cardiac risk factors warrant consideration of heart failure, though no peripheral edema or orthopnea reported. Severe headache could be primary or secondary to other systemic illness. Plan: - Administer nebulized bronchodilator treatment in ED. - Initiate oral azithromycin (Z-Javan) ? prescription sent to patient?s preferred pharmacy ([facility]). - Start systemic steroids ? prescription provided. - Review recent chest X-ray and any available blood work to assess for pneumonia. Lab Data MDM Lab Attestation statement: I reviewed the patient's lab results. 03/05/25 05:01 03/05/25 05:01 Labs: Lab Results 03/05/25 Range/Units 05:01 WBC 16.3 H (4.8-10.8) X10*3/uL RBC 5.16 (4.60-5.80) X10*6/uL Hgb 16.0 (14.0-18.0) g/dl Hct 48.5 (42.0-52.0) % MCV 94.0 (80.0-98.0) fL MCH 31.0 (27.0-33.0) pg MCHC 33.0 (31.0-36.0) g/dl RDW 14.4 (11.0-16.0) % Plt Count 167 (160-400) X10*3/uL MPV 9.2 L (9.4-12.4) fL Immature Gran % (Auto) Cancelled Neut % (Auto) Cancelled Lymph % (Auto) Cancelled Gregory % (Auto) Cancelled Eos % (Auto) Cancelled Baso % (Auto) Cancelled Lymph # (Auto) Cancelled Gregory # (Auto) Cancelled Eos # (Auto) Cancelled Baso # (Auto) Cancelled Abs Immat Gran (auto) Cancelled Absolute Neuts (auto) Cancelled Absolute Nucleated RBC 0.000 (0.0-0.012) X10*3/uL Nucleated RBC % (auto) 0.0 (0.0-0.2) /100WBC Neutrophils % (Manual) 72 (45-73) % Band Neutrophils % 7 H (3-5) % Lymphocytes % (Manual) 14 L (20-40) % Monocytes % (Manual) 7 (2-11) % Abs Neuts (Manual) 12.9 H (2.0-8.3) X10*3/uL Lymphocytes # (Manual) 2.3 (1.2-4.9) X10*3/uL Monocytes # (Manual) 1.1 (0.1-1.2) X10*3/uL Toxic Vacuolation PRESENT Platelet Estimate NORMAL (NORMAL) Plt Morphology Comment NORMAL RBC Morphology NORMAL Sodium 140 (135-145) mmol/L Potassium 4.4 (3.3-5.1) mmol/L Chloride 105 (96-108) mmol/L Carbon Dioxide 25 (22-29) mmol/L Anion Gap 14 (12-20) BUN 14 (9-16) mg/dL Creatinine 1.18 (0.5-1.4) mg/dL Estim Creat Clear Calc 75.4 Estimated GFR > 60 Random Glucose 128 H (60-115) mg/dL Calcium 9.6 (8.4-10.2) mg/dL Magnesium 2.2 (1.6-2.6) mg/dL Total Bilirubin 1.6 H (0.0-1.0) mg/dL AST 28 (5-37) U/L ALT 26 (0-40) U/L Alkaline Phosphatase 123 H (39-117) U/L Troponin I High Sens < 2.7 (<3.5-35.0) ng/L Total Protein 7.5 (6.5-8.0) g/dL Albumin 4.3 (3.5-5.0) g/dL Influenza Type A (PCR) NEGATIVE (Negative) Influenza Type B (PCR) NEGATIVE (Negative) RSV RNA Qual (PCR) NEGATIVE (Negative) SARS-CoV-2 RNA (RT-PCR) NEGATIVE (Negative) Independent Interpretation I performed an independent interpretation of an: EKG (108BPM, otherwise normal ECG without dysrhythmia, AV rich blocks or ST-T changes to suspect underlying ACS, my independent interpretation) and Plain X-Ray (Significant pulmonary fibrosis throughout somewhat worse on the left side) Radiology Impression Discussion of test interpretation with radiology: I have reviewed the radiologist's reading. Chronic Conditions Patient?s care impacted by: Other (Interstitial pulmonary fibrosis) Discharge Plan Discharge Clinical Impression: Dyspnea and respiratory abnormalities, COPD exacerbation, Medication refill Additional Instructions: I gave you a dose of azithromycin today you can continue starting tomorrow for the next 5 days 250 mg, prednisone 40 mg daily for the next 5 days, I did prescribe oxycodone to help you with pain during coughing a prescribed 5 mg pills they can double up and then call Dr. Dawn for additional pain medications, your viral swab is negative, EKG reassuring, rest of blood work reassuring, chest x-ray with pulmonary fibrosis, please make sure to follow up with the your chair pad maker any other issues concerns come back to the ER Prescriptions: New prednisone 20 mg tablet 40 mg PO DAILY 5 Days Qty: 10 0RF oxycodone 5 mg tablet 5 mg PO Q6H PRN (Reason: pain) Qty: 10 0RF Rx Instructions: Partial Fill upon patient request. azithromycin 250 mg tablet 250 mg PO DAILY 5 Days Qty: 5 0RF No Action alprazolam 0.25 mg tablet 0.25 mg PO BID PRN (Reason: anxiety) 30 Days Qty: 60 3RF zolpidem [Ambien CR] 12.5 mg tablet,ext release multiphase 12.5 mg PO BEDTIME PRN (Reason: sleep) 30 Days Qty: 20 2RF oxycodone 10 mg tablet 10 mg PO DAILY PRN (Reason: pain) Qty: 15 0RF Rx Instructions: partial fill up on patient request (DME) oxygen-air delivery systems Device See Rx Instructions .ROUTE .MEDSUPPLY Qty: 1 Rx Instructions: As directed sildenafil 100 mg tablet 100 mg PO ONCE PRN (Reason: sexual activity) 30 Days Qty: 30 1RF Rx Instructions: administer 60 minutes before intended activity - damon patient Print Language: Greek
--- NOTE | 2025-03-05 07:31 | PC.NURSE ---
pt pulled out own IV, removed tele leads and was sitting in chair without baseline O2 when this RN entered the room. No bleeding from IV site. SpO2 86%. New IV placed, solu-medrol given as ordered. Placed back on oxygen, Spo2 improved to 90s. RT with pt now. Plan for breathing Rx and DC.
[2025-03-05 08:25] VITALS: BP 127/77; PULSE 115; RESP 24; TEMP 36.5; O2SAT 94
[2025-03-05 08:27] VITALS: BP 127/77; PULSE 115; RESP 24; TEMP 36.5; O2SAT 94
== END 2025-03-05 08:27 | disposition home or self-care (01) ==
PROVIDERS: Emergency Provider Emergency Medicine; PCP Internal Medicine
DX: R06.09 Other forms of dyspnea (principal); J44.1 Chronic obstructive pulmonary disease with (acute) exacerbation; R06.02 Shortness of breath; R00.0 Tachycardia, unspecified; R94.31 Abnormal electrocardiogram [ECG] [EKG]; E78.00 Pure hypercholesterolemia, unspecified; Z87.891 Personal history of nicotine dependence; Z99.81 Dependence on supplemental oxygen; Z76.0 Encounter for issue of repeat prescription
CPT/HCPCS: 71045; 80053; 83735; 84484; 85007; 85027; 87637; 93005; 94640; 96374; 99284; 99285; J2919

== ENCOUNTER → 2025-03-05 04:55 | Outpatient (BNV) | payer MEDICARE, SELFPAY | PROVIDERS: Emergency Provider Emergency Medicine; PCP Internal Medicine; Visit Provider Internal Medicine Cardiovascular Disease | DX: R07.9 Chest pain, unspecified (principal) | CPT/HCPCS: 93010 ==

== ENCOUNTER → 2025-03-05 05:13 | Outpatient (BNV) | payer MEDICARE, SELFPAY | PROVIDERS: PCP Internal Medicine; Visit Provider Radiology Diagnostic Radiology | DX: R06.02 Shortness of breath (principal) | CPT/HCPCS: 71045 ==

== ENCOUNTER 2025-03-09 08:35 | Outpatient (AMB) | payer MEDICARE, SELFPAY ==
--- NOTE | 2025-03-09 08:54 | A.OFFPC_ITS ---
Vital Signs 03/09/25 08:55 Height 5 ft 11 in Weight 224 lb BMI 31.2 BP 130/78 Blood Pressure Location Lt brachial Position Sitting Pulse 89 Pulse Source Pulse Oximeter Pulse Oximetry (%) 91 L Oxygen Delivery Method Nasal Cannula Intake Visit Reasons: Pulmonary fibrosis,insomnia Allergies Penicillins (PENICILLINS) Allergy (Intermediate, Verified 03/09/25 08:55) ITCHING Tobacco use date assessed: 04/17/24 Fall risk assessment: No Falls in past year Last assessed Fall Risk: 03/09/25 Dental Screening Dental Screen Date: 04/17/24 HPI Pulmonary fibrosis,insomnia HPI Details Diverticulitis R lower abdomen. resolved. HPI Comments History of Present Illness Details History of Present Illness The patient is a 69-year-old male presenting for follow-up on several chronic conditions and management of recent shortness of breath. His medical history is significant for pulmonary fibrosis, COPD, hypercholesterolemia, impaired glucose tolerance, and generalized anxiety disorder. In February, the patient presented to the emergency room for shortness of breath and was treated with a 5-day course of Zithromax and prednisone. He reports the antibiotic course did not fully resolve his symptoms, and he continues to feel unwell. He also complains of an irritating cough, particularly at night, which has not been responsive to Robitussin. In November, he was hospitalized for diverticulitis with an abscess, which he postulates may have been triggered by minor abdominal trauma. This episode was characterized by right-sided abdominal pain and a high fever. Treatment involved antibiotics and the placement of a percutaneous drain for approximately three weeks, which has since been removed. He reports no current pain related to this issue. 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 He had a non-occlusive DVT recurrence in 2023 while on prophylactic Xarelto 10 mg and was subsequently switched back to a therapeutic dose. He follows with urology for an elevated PSA, which was 6.0 in November. Other notable lab work from November includes an LDL of 100, blood sugar of 100.28, and a TSH of 4.76. Health Maintenance - The patient is followed by a urologist for monitoring of an elevated PSA. - He has undergone a prior colonoscopy w [facility] revealed diverticulitis. - He was counseled on maintaining a high -fiber diet to prevent constipation in the setting of his diverticular disease. Social History - Diet: Reports he eats fiber and was co unseled on continuing this to avoid constipation. - Exercise: General recommendation to co ntinue with diet and exercise was noted. Results - Labs (November): PSA was 6.0, LDL was 100, and TSH was 4.76. - Labs (December 04): Blood work showed mild leukocytosis, normal electrolytes, stable renal function, and a blood sugar of 100.28. - Imaging (March 05): Chest x-ray rocio wed known pulmonary fibrosis. [facility] Medical History (Updated 03/06/25 @ 00:01 by Jamal Yee) Positive colorectal cancer screening using Cologuard test Colon cancer screening Anticoagulant long-term use Pneumothorax Osteopenia Right leg DVT Diverticular disease Obesity (BMI 30-39.9) COPD (chronic obstructive pulmonary disease) Anxiety and depression Pulmonary fibrosis Hypercholesterolemia Surgical History History of colonoscopy History of surgery History of surgery History of arthroscopy of right knee History of arthroscopy of left knee H/O rectal polypectomy History of tonsillectomy Family History Father Lung cancer Mother Breast cancer Paternal Grandmother Throat cancer Paternal Aunt Breast cancer Paternal Grandfather Myocardial infarction Social History Household Members: Spouse Housing: House Are you a primary career guidance counselor to a significant other at home: No Do you presently have visiting nurse or other home services: No Alcohol intake: former Patient Tobacco Use Status: Former Tobacco user Tobacco use type: Cigarette Years Smoked: quit 1989 e-Cigarette/Vaping Use: Never Used Second Hand Smoke Exposure: No service: No Current occupational status: disabled Current occupational exposures/hazards: No Cognitive needs: No Hearing needs: No Vision needs: Yes Questionnaire PHQ-9 Over the last 2 weeks, how often have you been bothered by any of the following problems? 1. Little interest or pleasure in doing things: not at all 2. Feeling down, depressed, or hopeless: not at all 3. Trouble falling or staying asleep, or sleeping too much: not at all 4. Feeling tired or having little energy: not at all 5. Poor appetite or overeating: not at all 6. Feeling bad about yourself - or that you are a failure or have let yourself or your family down: not at all 7. Trouble concentrating on things, such as reading the newspaper or watching television: not at all 8. Moving or speaking so slowly that other people could have noticed. Or the opposite - being so fidgety or restless that you have been moving around a lot more than usual: not at all 9. Thoughts that you would be better off or of hurting yourself in some way: not at all Total score: 0 Depression Screening Interpretation: Negative Depression Screening Done: Yes Source: Developed by Drs. Brent Catherine, Kate Scott, Get Salguero and colleagues, with an educational lalito from [employer]. Thrive Questionnaire Date Thrive assessed: 07/24/24 I am a: Patient What is your living situation today?: I have a steady place to live Within the past 12 months, did the food you bought not last and you didn't have the money to get more?: I choose not to answer this question Within the past 12 months, did you worry whether your food would run out before you got money to buy more?: I choose not to answer this question Do you have trouble paying for medicines?: I choose not to answer this question Do you have trouble getting transportation to medical appointments?: I choose not to answer this question Do you have trouble paying your heating and electricity bill?: I choose not to answer this question Do you have trouble taking care of your child, family member or friend?: I choose not to answer this question Do you have trouble with day-to-day activities such as bathing, preparing meals, shopping, managing finances, etc.?: I choose not to answer this question Are you currently unemployed and looking for a job?: I choose not to answer this question Are you interested in more education?: I choose not to answer this question THRIVE Score: 0 WAQAR-7 AMB Questionnaire WAQAR-7 Date WAQAR - 7 assessed: 04/17/24 Source: Developed by Drs. Brent Catherine, Get Thompson and colleagues, with an educational lalito from [employer]. Review of Systems Narrative Review of Systems - Respiratory: Reports persistent shortness of breath and an irritating cough that is worse at night. - Gastrointestinal: Denies current abdominal pain. - General: Reports feeling better but not fully recovered from his recent illness. - Constitutional: Experienced a high fever for four days in November. Physical exam (Primary Care) Vital Signs: Last Vital Signs Pulse 89 03/09/25 08:55 BP 130/78 03/09/25 08:55 Pulse Ox 91 L 03/09/25 08:55 Oxygen Delivery Method Nasal Cannula 03/09/25 08:55 BMI result Body Mass Index 31.2 Tobacco/Smoking Status: Tobacco use Status Tobacco use date assessed 04/17/24 03/09/25 08:58 Patient Tobacco Use Status Former Tobacco user 03/09/25 08:58 Tobacco use type Cigarette 03/09/25 08:58 e-Cigarette/Vaping Use Never Used 03/09/25 08:58 PHQ-9: PHQ-9 Score PHQ-9: Total score 0 03/09/25 09:19 Depression Screening Interpretation: Negative Thrive Assessment: Date of Thrive Assessment Date Thrive assessed 07/24/24 03/09/25 08:58 Narrative Physical Exam - Respiratory: Lung auscultation revealed no wheezing. Const General: alert; No acute distress Eyes Conjunctivae: conjunctivae normal Resp Auscultation: clear to auscultation bilaterally Cardio Rate: regular rate Rhythm: regular rhythm GI Inspection: Yes normal to inspection Extrem General: Yes normal to inspection and No edema Coding Level of Care Code Est Pt Level 4 (87061) Add On Problem Visit Only Diagnoses DVT of leg (deep venous thrombosis) I82.432 Affected thrombotic vein of extremity: popliteal Chronicity: acute Laterality: left Obesity (BMI 30-39.9) E66.9 Diverticulitis K57.92 PSA elevation R97.20 Pulmonary fibrosis J84.10 Hypercholesterolemia E78.00 Generalized anxiety disorder F41.1 COPD exacerbation J44.1 Assessment & Plan Assessment & Plan (1) DVT of leg (deep venous thrombosis): Comment: history of DVT in the right lower extremity in 2018 and then had a left lower extremity DVT July 2020 Code(s): I82.409 - Acute embolism and thrombosis of unspecified deep veins of unspecified lower extremity Category: Medical Qualifiers: Affected thrombotic vein of extremity: popliteal Chronicity: acute Laterality: left Qualified Code(s): I82.432 - Acute embolism and thrombosis of left popliteal vein Plan: Continue to follow-up with Hematology-Oncology continue with Xarelto therapeutic dose (2) Obesity (BMI 30-39.9): Code(s): E66.9 - Obesity, unspecified Category: Medical Plan: Continue with diet and exercise (3) Diverticulitis: Comment: November 2024 Code(s): K57.92 - Diverticulitis of intestine, part unspecified, without perforation or abscess without bleeding Category: Medical Plan: Patient was in the hospital in November treated with the antibiotics and drain placed (4) PSA elevation: Code(s): R97.20 - Elevated prostate specific antigen [PSA] Category: Medical Plan: Continue to monitor by Urology (5) Pulmonary fibrosis: Code(s): J84.10 - Pulmonary fibrosis, unspecified Category: Medical Plan: Continuing with oxygen (6) Hypercholesterolemia: Code(s): E78.00 - Pure hypercholesterolemia, unspecified Category: Medical Plan: Avoid fried foods, chicken skin, eggs, butter margarine, pastries and meat. Be it pork or beef they have a lot of cholesterol (7) Generalized anxiety disorder: Code(s): F41.1 - Generalized anxiety disorder Category: Medical Plan: Continue with present medication needed (8) COPD exacerbation: Code(s): J44.1 - Chronic obstructive pulmonary disease with (acute) exacerbation Category: Medical Plan Plan Patient was informed and verbally consented to the use of an ambient scribe for clinic note documentation during this visit. 1. Acute Dyspnea/Unresolved Pneumonia The patient reports persistent respiratory symptoms despite a recent 5-day course of Zithromax. Given the lack of complete response, a different antibiotic will be prescribed for a 7-day course, to be taken twice daily. A chest CT scan will be ordered if symptoms do not improve after completing the new antibiotic course. Prednisone is not indicated as there is no wheezing on exam. 2. Chronic Cough The patient complains of an irritating cough that is not relieved by [id number] medications. A liquid medication containing codeine will be prescribed. 3. Chronic Pain The patient requested a refill of his pain medication. A prescription for Oxycodone 10 mg will be refilled. The patient was counseled to be careful as both his cough syrup and pain medication contain opioids. 4. Recurrent Deep Vein Thrombosis The patient has a history of recurrent DVT and is managed by hematology/oncology. He will continue his current therapeutic dose of Xarelto and continue to follow up with his specialist. 5. Elevated Psa He will continue to be monitored by his urologist for PSA elevation. 6. History Of Diverticulitis With Abscess The patient is asymptomatic following his hospitalization in November for a diverticular abscess. He was advised to maintain a diet high in fiber to prevent constipation. Discussion Notes I discussed with the patient that since his respiratory symptoms did not resolve with Zithromax, we will try a different antibiotic. We agreed to hold off on a chest CT scan for now and will proceed with it only if his symptoms do not improve with the new medication. I explained that a steroid was not necessary as his exam did not show wheezing. I prescribed a cough syrup with codeine for his irritating cough and provided a refill for his Oxycodone 10 mg for pain. I counseled him to be careful using both opioid-containing medications. We confirmed he should continue his therapeutic dose of Xarelto and maintain follow-up with his hematology and urology specialists. Patient Instructions - Take the new antibiotic prescribed to you twice a day for the full course to treat your breathing problems. - If your breathing does not get better after you finish the antibiotic, please call our office to schedule a chest CT scan. - Use the prescribed cough syrup with codeine as needed for your cough. - A refill for your Oxycodone 10 mg pain medicine has been sent to your pharmacy. - Be cautious as both your cough medicine and your pain medicine contain narcotics. - Continue taking your Xarelto blood thinner as prescribed. - Continue your scheduled follow-up appointments with your hematology and urology specialists. - Continue to eat a diet rich in fiber to help prevent constipation. Medications: New doxycycline hyclate 100 mg PO BID 14 caps 0RF codeine-guaifenesin 10-100 mg/5 mL (G Tussin AC) 5 mL PO Q6H PRN 118 mL 0RF flu symptoms J44.1 - Chronic obstructive pulmonary disease with (acute) exacerbation Refilled oxycodone partial fill up on patient request 10 mg PO DAILY PRN 15 tabs 0RF pain J84.10 - Pulmonary fibrosis, unspecified Discontinued oxycodone Partial Fill upon patient request. Discontinued Reason: Patient no longer taking 5 mg PO Q6H PRN 10 tabs 0RF pain
[2025-03-09 08:55] VITALS: BP 130/78; PULSE 89; O2SAT 91; BMI 31.2
--- OUTSIDE RECORDS SUMMARY | 2025-03-09 10:15 | XMS_ITS | Clinical Summary ---
Author Organization [facility] Address [address] [place] [phone] Phone Care Team Providers Care Cyber Intelligence Analyst Name Role Phone Corky Dawn MD Primary Care Provider [phone] Natalio Hahn MD Unavailable [phone] Justin Henning MD Unavailable [phone] Javon Griffin MD Unavailable [email or web address] [...] EDT) SODIUM 143 136 - 145 mmol/L [facility] POTASSIUM 3.9 3.4 - 5.1 mmol/L [facility] CHLORIDE 103 98 - 107 mmol/L [facility] CO2 29 22 - 31 mmol/L [facility] BUN 11 6 - 23 mg/dL [facility] CREATININE 1.05 0.50 - 1.20 mg/dL [facility] GLUCOSE 90 70 - 100 mg/dL [facility] ALBUMIN 4.8 3.5 - 5.2 g/dL [facility] TOTAL PROTEIN 7.8 6.4 - 8.3 g/dL [facility] CALCIUM 9.3 8.8 - 10.7 mg/dL [facility] ALKALINE PHOSPHATASE 87 35 - 130 U/L [facility] TOTAL BILIRUBIN 0.6 0.0 - 1.0 mg/dL [facility] AST 17 10 - 50 U/L [facility] ALT 11 10 - 50 U/L [facility] GLOBULIN 3.0 2.2 - 4.2 g/dL [facility] EGFR 76 >59 mL/min/1.7 3m2 [facility] Comment:Estimated glomerular filtration rate calculated using the CKD-EPI equation. ANION GAP 11 7 - 17 mmol/L [facility] 10/12/2020 12:5 8 PM EDT 10/12/2020 1:50 PM EDT us Haley Navarro NP LAB BLOOD BKR ORDERABLES Final Result [facility] [address] [place] [id number] * Hepatitis C antibody, qualitative (10/12/2020 12:58 PM EDT) HCV Nonreactive Nonreactive [facility] 10/12/2020 12:5 8 PM EDT 10/12/2020 1:50 PM EDT Haley Navarro WEB DEVELOPMENT CONSULTANT LAB BLOOD BKR ORDERABLES Final Result Performing Organization Address City/[facility] Co de Phone Number [facility] [address] [place] [address] * (ABNORMAL) Lipid panel (10/12/2020 12:58 PM EDT) CHOLESTEROL 183 <200 mg/dL [facility] TRIGLYCERIDES 192(H) 35 - 150 mg/dL [facility] HDL 52 40 - 80 mg/dL [facility] CALCULATED LDL 93 50 - 129 mg/dL [facility] VLDL 38 mg/dL [facility] CARDIAC RISK RATIO 3.5 0.0 - 4.0 [facility] 10/12/2020 12:5 8 PM EDT 10/12/2020 1:50 PM EDT Haley Navarro WEB DEVELOPMENT CONSULTANT LAB BLOOD BKR ORDERABLES Final Result Performing Organization Address [facility] Co de Phone Number [facility] [address] [place] [phone] from Last 3 Months or Most Recently Relevant to Health Maintenance Insurance [facility] Member Subscriber Plan / Payer (Ef fective 2020-Present) Name:Aric Wheat Relation to Subscriber:Self Name:Aric Wheat Payer ID:[id number] Group ID:[id number] Type:Medicaid Address: [address] [place] [address] [place] [address] ACO A[employer] ACO [facility] Care Teams Cyber Intelligence Analyst Relationship Specialty Start Date End Date Corky Dawn MD [address] [place] [address] Drive [address] [place] [phone] PCP - General Internal Medicine 09/13/20 Natalio Hahn MD [address] [place] [address] [address] [place] [address] Referring Physician Internal Medicine 09/14/20 Justin Henning MD [address] [place] [address] [place] [address] Referring Physician Pulmonary Disease 09/14/20 Javon Griffin MD [address] [place] [address] [email or web address] Referring Physician Pulmonary Disease 09/19/20 Anita Eldridge [address] [place] [id number] Referring Physician Hematology and Oncology 10/18/20 Additional Source Comments The information contained in this document represents components of the legal health record. It is not the complete legal health record.[facility]
== END 2025-03-09 09:33 | disposition home or self-care (01) ==
PROVIDERS: PCP Internal Medicine; Visit Provider Internal Medicine
DX: I82.432 Acute embolism and thrombosis of left popliteal vein (principal); J84.10 Pulmonary fibrosis, unspecified; J44.1 Chronic obstructive pulmonary disease with (acute) exacerbation; E66.9 Obesity, unspecified; K57.92 Diverticulitis of intestine, part unspecified, without perforation or abscess without bleeding; R97.20 Elevated prostate specific antigen [PSA]; E78.00 Pure hypercholesterolemia, unspecified; F41.1 Generalized anxiety disorder

== ENCOUNTER → 2025-03-09 08:35 | Outpatient (BNVA) | payer MEDICARE, SELFPAY | PROVIDERS: PCP Internal Medicine; Visit Provider Internal Medicine | DX: J18.9 Pneumonia, unspecified organism (principal); R05.3 Chronic cough; J84.10 Pulmonary fibrosis, unspecified; J44.9 Chronic obstructive pulmonary disease, unspecified; G89.29 Other chronic pain; F41.1 Generalized anxiety disorder; E78.00 Pure hypercholesterolemia, unspecified; R97.20 Elevated prostate specific antigen [PSA]; Z87.19 Personal history of other diseases of the digestive system; Z86.718 Personal history of other venous thrombosis and embolism | CPT/HCPCS: 99212 ==